=== PATIENT | female | born 1945 | race Caucasian/White ===

== ENCOUNTER 2017-07-15 10:05 | Inpatient (IN) | payer MEDICARE, OTHER, SELFPAY ==
[2017-06-11 13:24] VITALS: BP 160/68; PULSE 70; RESP 16; TEMP 36.8; O2SAT 95; BMI 36.9
--- NOTE | 2017-06-11 13:31 | SDCEKG_ITS ---
Test Reason : Blood Pressure : / mmHG Vent. Rate : 065 BPM Atrial Rate : 065 BPM P-R Int : 148 ms QRS Dur : 090 ms QT Int : 382 ms P-R-T Axes : 035 010 015 degrees QTc Int : 397 ms Normal sinus rhythm Cannot rule out Inferior infarct , age undetermined Abnormal ECG Confirmed by MAINOR CANTRELL, BRIDGER ([id number]), scientific editor LUCILA ABAD ([id number] on 06/13/2017 12:47:23 PM Referred By: ADAM Confirmed By:BRIDGER HAYWARD MD
[2017-06-11 14:20] LABS: Hematocrit 44.2 % (37-47); Hemoglobin 14.3 g/dl (12.0-15.0); Mean Corp Hgb Conc 32.4 g/gl (32-36); Mean Corpuscular Hgb 30.7 pg (27.0-32.0); Mean Corpuscular Volume 94.8 fL (81-99); Mean Platelet Vol. 10.5 fl (6.2-12.0); Platelet Count 211 K/mm3 (150-450); RBC Distribution Width CV 13.3 % (11.6-14.6); Red Blood Count 4.66 M/mm3 (4.2-5.4)
[2017-06-11 14:33] LABS: AST(SGOT) 22 U/L (15-37); Alanine Aminotransfer ALT/SGPT 18 U/L (12-78); Albumin, Serum 3.5 g/dL (3.4-5.0); Alkaline Phosphatase 100 U/L (45-117); Anion Gap 6 (5-15); BUN 10 mg/dL (7-18); BUN/Creat Ratio 14.5 RATIO (10-20); Calcium,Total 9.4 mg/dL (8.5-10.1); Chloride 106 mmol/L (98-107); Creatinine, Serum 0.69 mg/dL (0.55-1.02); EST Glomerular Filtration Rate 89 mL/min (>60); Est Glom Filt Rate - Afr Amer 108 mL/min (>60); Globulin 3.4 g/dL (2.2-4.2); Glucose 96 mg/dL (70-110); Potassium 3.9 mmol/L (3.5-5.1); Protein, Total 6.9 g/dL (6.4-8.2); Sodium Level 140 mmol/L (136-145)
[2017-06-11 14:35] LABS: Scan Indicated on CBC? Y/N NO
[2017-07-10 13:20] LABS: Hematocrit 44.9 % (37-47); Hemoglobin 14.4 g/dl (12.0-15.0); Mean Corp Hgb Conc 32.1 g/gl (32-36); Mean Corpuscular Hgb 30.6 pg (27.0-32.0); Mean Corpuscular Volume 95.3 fL (81-99); Mean Platelet Vol. 10.1 fl (6.2-12.0); Platelet Count 200 K/mm3 (150-450); RBC Distribution Width CV 13.1 % (11.6-14.6); RBC Distribution Width SD 45.8 fl (35.1-43.9); Red Blood Count 4.71 M/mm3 (4.2-5.4); White Blood Count 7.2 K/mm3 (4.4-11.0)
[2017-07-10 13:25] LABS: Scan Indicated on CBC? Y/N NO
[2017-07-10 14:02] LABS: Anion Gap 8 (5-15); BUN 14 mg/dL (7-18); BUN/Creat Ratio 20.5 RATIO (10-20); Calcium,Total 9.2 mg/dL (8.5-10.1); Chloride 104 mmol/L (98-107); Creatinine, Serum 0.68 mg/dL (0.55-1.02); EST Glomerular Filtration Rate 90 mL/min (>60); Est Glom Filt Rate - Afr Amer 109 mL/min (>60); Glucose 86 mg/dL (70-110); Potassium 3.5 mmol/L (3.5-5.1); Sodium Level 139 mmol/L (136-145)
[2017-07-15] VITALS (10 sets, daily range): BP systolic 115–161; BP diastolic 62–86; PULSE 61–77; RESP 16–18; TEMP 36.2–36.6; O2SAT 95–99; BMI 36.9
[2017-07-15] MEDS: Celecoxib 200 MG Capsule 400 MG PO (10:51)
[2017-07-15] MEDS: Acetaminophen 500 MG Tablet 1000 MG PO ×2 (10:51→21:10)
[2017-07-15] MEDS: oxyCODONE HCl Cr 10 MG Tablet 20 MG PO (10:51)
[2017-07-15 11:24] LABS: Prothrombin Time (Protime)PT. 13.2 SECONDS (11.7-14.9)
[2017-07-15] MEDS: Cefazolin 2 GM in 0.9% Normal Saline 100 ML IV (12:34)
--- NOTE | 2017-07-15 13:41 | OP.PCM_ITS ---
Report of Operation Date of Procedure: 07/15/17 Pre-Operative Diagnosis: Severe end-stage osteoarthritis right knee Post-Operative Diagnosis: Severe end-stage osteoarthritis right knee Surgery/Procedure Performed:: Total knee arthroplasty right Description of Surgical Findings:: Eburnation of bone, periarticular osteophytes consistent with tricompartmental osteoarthritis supervisor travel trailer: Lex Granado Type of Anesthesia:: Spinal Anesthesiologist: Roddy Jacobson Special Medications: TXA Specimen's removed: bone and soft tissue Estimated Blood Loss (mL): 100 Fluids Replaced: See anesthesia report Description of Procedure: Implants: Bethany triathlon size 4 posterior stabilized femur, 4 tibia, 35 x 10 mm patella all cemented with Simplex. 9 mm posterior stabilized articulating surface Indications: Patient has severe end-stage osteoarthritis diagnosed via x-rays in the knee. They have failed all forms of conservative measures including activity modification, injections, anti-inflammatories, use of assistive device. The patient has pain that affects on a daily basis and prevents him from doing things that they enjoyed. They have elected to undergo the above procedure. The risks of the procedure were discussed at length and their questions were answered. Procedure description: The patient was greeted in the preoperative area. The right knee was then marked with a surgical marker. Patient was then taken to or [address]. They were administered a dose of antibiotics as well as tranexamic acid. Once adequate anesthesia was obtained and airway was secured to placed in supine position on the operating room table. A well-padded tourniquet was placed on the affected extremity. Leg was then prepped and draped in the usual sterile fashion from the knee down. Ioban was used on the skin. Surgical timeout was then performed and confirmed with all present. Six-inch Esmarch was used to examine the limb and tourniquet was then inflated to 250 mmHg. A longitudinal incision was then planned and carried out in the anterior aspect of the knee. The dissection was then carried the length of the incision the extensor mechanism was identified. Standard medial parapatellar arthrotomy was then performed revealing severe eburnation of bone and periarticular osteophytes. There is complete loss of cartilage especially in the medial compartment with varus alignment. Anterior fat pad was removed for visualization purposes and the anterior medial aspect of the tibia was skeletonized for exposure to the knee. The knee was then flexed the patella was inverted. Opening reamer was then used in the femur approximately 1 cm anterior to the attachment of the PCL. The intramedullary valgus wand was then placed in the femur set at 5? of valgus. The distal femoral cutting jig was then applied to the femur with anticipated resection of approximately 8 mm. This was then made with a oscillating saw. The sizing guide was then placed referencing off the posterior condyles and also reference off the epicondylar axis. This was measured and the appropriate size 4-in-1 cutting jig was then applied to the distal femur. Anterior posterior cuts were made followed by the anterior and posterior chamfer cuts. These bony pieces and fragments were removed and placed on the back table. Posterior retractor was then utilized and the tibia was subluxed anteriorly. Extramedullary tibial alignment jig was then applied to the tibia referencing off the medial one third of the tibial tubercle the anterior tibial spine the middle aspect of the tibiotalar joint. Also reference off patient's tangirnaq slope. The tibial cutting jig was then pinned with anticipated resection of 2 mm off of the deficient medial tibial condyle. This cut was made with the oscillating saw. Once this was complete a laminar filing clerk was utilized in both medial lateral meniscus were removed and a posterior capsular osteophytes were also removed. Posterior capsule release was performed in the posterior capsule as well as the geniculate arteries are treated with the aqua Rosas. The tibia was incised and the appropriate sized tibial tray was then pinned. The femoral box cutting jig was then applied to the femur and the box was prepared removing a portion of the intercondylar notch. The femoral trial was then placed and the knee was trialed. Full flexion-extension were easily achieved. The knee seemed to balance quite nicely. Any remaining osteophytes were removed at this time. Once this was complete the patella was everted and the Kimmy patella reaming device was then utilized the patella was then placed in the appropriate jig and reamer was then used to remove approximately 9 mm of the undersurface of the patella. A soft tissue remaining was in the way was removed and patella trial was then placed listed maintain excellent tracking using the no thumbs technique. The tibial tray at this point was punched to accommodate the fins of the final implant. At this point cement was mixed on the back table. The trial components were removed and the knee was copiously irrigated. Did use a cocktail of injection for postoperative pain control. The final components were then cemented in the standard fashion and excess cement was removed with cement removal tools and patellar clamp is placed in the patella. As the cement had cured in full extension tourniquet was deflated and hemostasis was perfect with Bovie cautery as well as the aqua Manus. Needle is once again trialed with different size polyethylenes to ensure the full range of motion was achieved as well as excellent balancing ligamentously was achieved. The knee was then irrigated copiously. Final implant was then inserted locking mechanism was engaged and confirmed to be locked. The arthrotomy was then closed with #1 Vicryl aggravate type fashion interrupted. Subcutaneous tissue was closed with 0 Vicryl and surgical doreen were placed in the skin. A occlusive silver impregnated dressing was then applied followed by well-padded sterile dressing secured with an Lukas wrap. The patient was taken to the PACU in stable condition. No complications known at this time. Postoperatively we will maintain standard total knee postoperative protocol. The use of the physician special education assistant was integral during this procedure. They assisted with positioning placement of the tourniquet retracting closure and placement of the dressing. The procedure would have been much more difficult without their expertise and assistance - Complications none - Admit VTE Documentation VTE Present on Admission: Yes VTE Mechan Device Prophylaxis: SCD's, Thigh High DEAN Hose VTE Pharm Prophylaxis ordered?: Yes
[2017-07-15] MEDS: Lactated Ringers 1,000 ML 125 ML IV ×2 (15:00→22:27)
[2017-07-15] MEDS: Scopolamine 1mg/72hr Patch 1 PATCH TD (15:05)
--- NOTE | 2017-07-15 16:01 | CASEMGMT ---
Social Work Note Updated by RN DEEPIKA Purvis - that the pt is requesting RU. Placed call to referral line and left vm with pt's information requesting placement on RU. SW to continue to follow and assist with discharge planning. Plan: CELY Card, [employer]
[2017-07-15] MEDS: Aspirin 325 MG Tablet PO (18:23)
[2017-07-15] MEDS: oxyCODONE 5 MG Tablet PO (18:27)
[2017-07-15] MEDS: Cefazolin 1 GM/50 ML BAG IV (20:14)
[2017-07-15] MEDS: Senna/Docusate Sodium 1 Tablet 2 TABLET PO (21:10)
[2017-07-16] VITALS (7 sets, daily range): BP systolic 137–173; BP diastolic 64–89; PULSE 68–89; RESP 16–18; TEMP 26.6–36.9; O2SAT 94–97
[2017-07-16] MEDS: Cefazolin 1 GM/50 ML BAG IV (04:13)
[2017-07-16] MEDS: oxyCODONE 5 MG Tablet PO ×3 (04:13→17:51)
[2017-07-16] MEDS: Acetaminophen 500 MG Tablet 1000 MG PO ×3 (05:12→21:44)
[2017-07-16] MEDS: Aspirin 325 MG Tablet PO ×2 (07:32→17:52)
[2017-07-16] MEDS: DiphenhydrAMINE 25 MG Capsule PO (07:51)
[2017-07-16] MEDS: Losartan Potassium 50 MG Tablet PO (07:52)
[2017-07-16] MEDS: HYDROCHLOROTHIAZIDE 12.5 MG CAPSULE PO (07:53)
[2017-07-16] MEDS: Senna/Docusate Sodium 1 Tablet 2 TABLET PO ×2 (07:53→21:43)
--- NOTE | 2017-07-16 08:09 | PN.ORTHO_ITS ---
Subjective: Patient sitting up in bed eating breakfast. Patient states pain is well- managed. Patient denies chest pain, shortness breath, calf pain, or nausea vomiting. No other complaints. Patient does state that she is having itching in different parts of her body, patient feels a large contributing factor is the preoperative soap that she was required to use. Objective: Dressings are clean dry intact. Vital signs labs within normal limits. Patient is afebrile, neurovascular is otherwise intact. Negative signs and symptoms of DVT. Patient is in no respiratory distress. Patient has an approximate 11 cm skin tear to the lateral mid calf region of her operative right leg. This occurred postoperatively with dressing removal. The skin tear was approximated with a running 3-0 nylon stitch, and Steri's. A silver dressing was placed over the skin tear. - Physical Exam General: Alert, Oriented x3, Cooperative HEENT: PERRLA Oral: Moist Mucosa Neurological: Cranial nerves II-XII grossly intact Psych/Mental Status: Normal Affect, Alert and oriented to time, place, person, mood and affect Vital Signs Temp Pulse Resp BP Pulse Ox 97.5 F L 68 18 137/73 H 94 07/16/17 02:25 07/16/17 02:25 07/16/17 02:25 07/16/17 02:25 07/16/17 02:25 Oxygen Delivery Method Room Air Weight: 96.1 kg Body Mass Index (BMI) 36.9 Intake and Output for Last 24 Hours 07/14/17 07/15/17 07/16/17 23:59 23:59 23:59 Intake Total 3307 / 3307 722 / 722 Output Total 600 / 600 400 / 400 Balance 2707 / 2707 322 / 322 Laboratory Tests Past 24 Hrs 07/15/17 11:05 PT 13.2 INR 1.0 APTT 31.0 Assessment/Plan Status post right total knee arthroplasty Postop 11 cm skin tear to the right lateral lower leg Postop urticaria Plan 1. Continue all pain medications as prescribed 2. Begin physical therapy today weight-bear as tolerated with walker 3. Aspirin 325 mg 1 p.o. every 12 hours ?30 days for postop DVT prophylaxis 4. Encourage incentive spirometry 5. Possible discharge home tomorrow 6. Consult wound care nurse for evaluation of skin tear. 7. Provide patient with moisturizing body lotion, and 1 dose of Benadryl 25 mg p.o.
--- NOTE | 2017-07-16 10:14 | NURSING ---
wound photo: right lower leg
--- NOTE | 2017-07-16 10:44 | CASEMGMT ---
Social Work Note Call from [facility] confirming that [facility] can accept the pt once medically stable. Anticipate discharge on Saturday, 07/16. Pt updated with confirmation for discharge plan. Plan: [facility] for continued therapy. MATT PalmW
[2017-07-16] MEDS: Ketorolac 15 MG/ML Vial IV (15:13)
[2017-07-16] MEDS: 0.9% NaCl Peripheral Flush Adult/Peds IV (15:13)
[2017-07-17 02:27] VITALS: BP 160/58; PULSE 96; RESP 16; TEMP 36.8; O2SAT 96
[2017-07-17] MEDS: Acetaminophen 500 MG Tablet 1000 MG PO ×2 (05:50→14:05)
[2017-07-17] MEDS: oxyCODONE 5 MG Tablet PO ×2 (05:50→11:59)
[2017-07-17 08:30] VITALS: BP 150/71; PULSE 93; RESP 16; TEMP 36.8; O2SAT 94
[2017-07-17] MEDS: Aspirin 325 MG Tablet PO (08:36)
[2017-07-17] MEDS: HYDROCHLOROTHIAZIDE 12.5 MG CAPSULE PO (08:37)
[2017-07-17] MEDS: Losartan Potassium 50 MG Tablet PO (08:37)
[2017-07-17] MEDS: Senna/Docusate Sodium 1 Tablet 2 TABLET PO (08:39)
--- NOTE | 2017-07-17 13:33 | PCM.PN.ORT ---
Subjective: Patient sitting at lunch, doing very well, pain well-managed. Patient has no other complaints, ready for discharged with screening hospital for for rehab. Objective: Dressings are clean dry intact. Labs vitals within normal limits. Patient is afebrile, neurovascular intact. Negative signs and symptoms of DVT. - Physical Exam General: Alert, Oriented x3, Cooperative Vital Signs Temp Pulse Resp BP Pulse Ox 98.3 F 93 16 150/71 H 94 07/17/17 08:30 07/17/17 08:30 07/17/17 08:30 07/17/17 08:30 07/17/17 08:30 Oxygen Delivery Method Room Air Weight: 96.1 kg Body Mass Index (BMI) 36.9 Intake and Output for Last 24 Hours 07/15/17 07/16/17 07/17/17 23:59 23:59 23:59 Intake Total 3307 / 3307 1222 / 1222 1050 / 1050 Output Total 600 / 600 400 / 400 300 / 300 Balance 2707 / 2707 822 / 822 750 / 750 Assessment/Plan Status post right total knee arthroplasty Postop 11 cm skin tear to the right lateral lower leg Postop urticaria Plan 1. Discontinue all pain medications. Will restart pain medications with Ultram 1 or 2 every 6 hours as needed pain 2. Begin physical therapy today weight-bear as tolerated with walker 3. Aspirin 325 mg 1 p.o. every 12 hours ?30 days for postop DVT prophylaxis 4. Encourage incentive spirometry 5. Discharge to [facility] fourth floor rehab today 6. Wound care nurse will continue to monitor patient's skin tear on the lower leg. 7. Provide patient with moisturizing body lotion, and 1 dose of Benadryl 25 mg p.o. 8. Follow with Dr. Pickett as scheduled
--- NOTE | 2017-07-17 13:46 | PCM.DC.TKR ---
Discharge Diet: No Restrictions Discharge Activity: May Not Drive, May Shower, Use Walker May shower in (days): 2 Ice area for (Minutes): 20 - each hour while awake. Weight Bearing Status: Weight bearing as tolerated Elevate: Operative Extremity Additional Activity Instructions:: Wear elastic stockings for 2 weeks after your surgery. Call your doctor if your incision/area has: Continuous Slow Oozing, Sudden Increased Bleeding, Increased Pain/ Swelling, Increased Redness, Foul Smelling Discharge Call your doctor if you observe: Fever of 101 or Higher, Coldness, Increased Pain - in extremity, Numbness or Tingling, Change in Color, Calf discomfort, Uncontrolled pain Change Dressing in (Days):: 0 - and daily as needed. Remove Dressing in (days):: 9 Cleanse incision/area with: Soap & Water Allergies/Adverse Reactions: Allergies adhesive Adverse Reaction (Verified 06/11/17 13:09) Other levofloxacin [From Levaquin] Adverse Reaction (Verified 06/11/17 13:09) Other JITTERY, UNABLE TO SLEEP FOR 2 DAYS lisinopril Adverse Reaction (Verified 06/11/17 13:09) Other COUGHING Medications to take at Discharge Losartan/Hydrochlorothiazide [Losartan-Hctz 50-12.5 mg Tab] 1 each PO DAILY 07/17/16 Acetaminophen [Tylenol] 1,000 mg PO Q8 #90 tab 07/17/17 Aspirin 325 mg PO BIDCM #60 tab 07/17/17 Scopolamine Patch 1mg/72hr [Transderm-Scop] 1 patch TD Q3D #4 patch 07/17/17 TraMADol [Ultram (G)] 50 mg PO Q6H PRN PRN 7 Days #60 tab 07/17/17 The following prescriptions were given: TraMADol [Ultram (G)] 50 mg PO Q6H PRN PRN 7 Days #60 tab PRN Reason: Pain Acetaminophen [Tylenol] 1,000 mg PO Q8 #90 tab Scopolamine Patch 1mg/72hr [Transderm-Scop] 1 patch TD Q3D #4 patch Aspirin 325 mg PO BIDCM #60 tab Primary Care Physician: Shoaib Begum DO [Primary Care Provider] - Please Follow Up With: Zaki Pickett DO When: see pink sheet
[2017-07-17 14:00] VITALS: BP 136/67; PULSE 75; RESP 18; TEMP 36.7; O2SAT 95
--- NOTE | 2017-07-17 14:10 | NURSING ---
Talked with MILEY Chavez about the skin tear to the right lower leg. plan to assist Davin in the removal of the sutures a week from today. Pt will be going to the rehab unit. will continue to follow.
[2017-07-17] MEDS: DiphenhydrAMINE 25 MG Capsule PO (15:23)
--- NOTE | 2017-07-17 16:04 | NURSING ---
report called to Se[facility] in Rehab Unit at 1520. pt medicated with benadryl prior to D/C due to itching. pt transported to rehab room 410 by BRUCE Kuo.
== END 2017-07-17 15:39 | DRG 470 ==
LOC: MS3 15:05 → ACINP 15:05
PROVIDERS: Anesthesiology; Admitting Provider Orthopaedic Surgery; Family Provider Family Medicine; PCP Family Medicine; Visit Provider Orthopaedic Surgery
PROC: 0SRC0J9 Replacement of Right Knee Joint with Synthetic Substitute, Cemented, Open Approach (ICD-10-PCS; CPT 27447; principal; 2017-07-15 11:50)
DX: M17.11 Unilateral primary osteoarthritis, right knee (principal); S81.811A Laceration without foreign body, right lower leg, initial encounter; M25.761 Osteophyte, right knee; X58.XXXA Exposure to other specified factors, initial encounter; Y92.239 Unspecified place in hospital as the place of occurrence of the external cause; L50.9 Urticaria, unspecified; I10 Essential (primary) hypertension
CPT/HCPCS: 36415; 80048; 80076; 85027; 85610; 85730; 87081; 93005; 97110; 97116; 97162; 97165; 97530; 97535; J7120; A4216; J2405

== ENCOUNTER 2017-07-17 15:56 | Inpatient (IN) | payer MEDICARE, OTHER, SELFPAY ==
[2017-07-17 16:30] VITALS: BP 149/71; PULSE 80; RESP 16; TEMP 36.5; O2SAT 97; BMI 37.4
[2017-07-17] MEDS: Aspirin 325 MG Tablet PO (18:12)
--- NOTE | 2017-07-17 18:17 | NURSING ---
patient aware of being a fall risk and must ask for staff assist for all needs and transfers.
[2017-07-17 19:52] VITALS: BP 163/81; PULSE 100; RESP 12; TEMP 36.7; O2SAT 93
[2017-07-17] MEDS: Acetaminophen 500 MG Tablet 1000 MG PO (20:57)
[2017-07-17] MEDS: Senna/Docusate Sodium 1 Tablet 2 TABLET PO (20:58)
[2017-07-18] MEDS: Acetaminophen 500 MG Tablet 1000 MG PO ×3 (05:35→21:15)
[2017-07-18 06:15] LABS: Hematocrit 40.5 % (37-47); Mean Corp Hgb Conc 32.1 g/gl (32-36); Mean Corpuscular Hgb 31.3 pg (27.0-32.0); Mean Corpuscular Volume 97.4 fL (81-99); Mean Platelet Vol. 10.4 fl (6.2-12.0); Platelet Count 208 K/mm3 (150-450); RBC Distribution Width CV 13.3 % (11.6-14.6); RBC Distribution Width SD 45.8 fl (35.1-43.9); Red Blood Count 4.16 M/mm3 (4.2-5.4); White Blood Count 11.7 K/mm3 (4.4-11.0)
[2017-07-18 06:17] LABS: Scan Indicated on CBC? Y/N NO
[2017-07-18 06:21] LABS: Anion Gap 7 (5-15); BUN 8 mg/dL (7-18); BUN/Creat Ratio 14.6 RATIO (10-20); Chloride 102 mmol/L (98-107); Creatinine, Serum 0.55 mg/dL (0.55-1.02); EST Glomerular Filtration Rate 116 mL/min (>60); Est Glom Filt Rate - Afr Amer 141 mL/min (>60); Glucose 120 mg/dL (70-110); Magnesium 1.9 mg/dL (1.6-2.6); Phosphorus 2.7 mg/dL (2.5-4.9); Potassium 3.5 mmol/L (3.5-5.1); Sodium Level 138 mmol/L (136-145)
--- NOTE | 2017-07-18 08:34 | CON.PCM_ITS ---
Problem List (1) Obesity (BMI 30-39.9) Status: Acute (2) Benign essential hypertension Status: Chronic (3) Osteoarthritis Status: Chronic Qualifiers: Osteoarthritis location: unspecified site Osteoarthritis type: unspecified Qualified Code(s): M19.90 - Unspecified osteoarthritis, unspecified site (4) Hypothyroidism Status: Chronic Qualifiers: Hypothyroidism type: unspecified Qualified Code(s): E03.9 - Hypothyroidism , unspecified (5) Sinus arrhythmia Status: Chronic Reason for Consult Date of Consultation: 07/18/17 Reason for Consultation: Medical consultation History of Present Illness: The patient is a 72 y/o F w/ PMHx: HTN, Obesity, OA, Hypothyroidism, Sinus arrhythmia following with Dr. Wheat who presents to the [facility] on 07/18/17 for continued PT, OT following recent revision L shoulder replacement per Dr. Vides. She had no kingsley-operative events. She was evaluated per Dr. Wheat and her PCP Dr. Begum prior to her operative intervention. The patient had originally had a fractured left shoulder in 1965 and underwent eventually a hemiarthroplasty in 1994. Following her intervention she had less aggressive therapy and as a result had limited range of motion and had progressively worsening discomfort prompting this most recent intervention. Past Medical History Past Medical History (Chronic Problems): Chronic Problems Benign essential hypertension (Chronic) Osteoarthritis (Chronic) Hypothyroidism (Chronic) Sinus arrhythmia (Chronic) Allergies adhesive Adverse Reaction (Verified 06/11/17 13:09) Other levofloxacin [From Levaquin] Adverse Reaction (Verified 06/11/17 13:09) Other JITTERY, UNABLE TO SLEEP FOR 2 DAYS lisinopril Adverse Reaction (Verified 06/11/17 13:09) Other COUGHING Home Medications: Ambulatory Orders Medication Instructions Recorded Losartan/Hydrochlorothiazide 1 each PO DAILY 07/17/16 [Losartan-Hctz 50-12.5 mg Tab] Acetaminophen [Tylenol] 1,000 mg PO Q8 07/17/17 Aspirin 325 mg PO BIDCM 07/17/17 Scopolamine Patch 1mg/72hr 1 patch TD Q3D 07/17/17 [Transderm-Scop] TraMADol [Ultram (G)] 50 mg PO Q6H PRN PRN 7 Days #60 tab 07/17/17 Surgical History: - - Revision left shoulder replacement, appendectomy, cholecystectomy, hysterectomy, prior left shoulder hemiarthroplasty, right hip replacement, loop recorder, tonsillectomy. Psychiatric History: No pertinent psych hx FABRIC AND ACCESSORIES ESTIMATOR History: No pertinent FABRIC AND ACCESSORIES ESTIMATOR history Lives: Spouse/ Significant Other Smoking Status: Never smoker Tobacco Use: Non-smoker Alcohol: Occasional Drugs: None - *Family History Maternal History Items: Diabetes, Hypertension Paternal History Items: Hypertension Review of Systems Constitutional: Denies: Chills, Fever, Weight Change HEENT: Denies: Head Aches, Sinus Congestion, Sinus Drainage Cardiovascular: Denies: Chest Pain, Palpitations Respiratory: Denies: Cough, Shortness of breath at rest, Sputum production Gastrointestinal: Reports: Abdominal Pain, Constipation. Denies: Nausea, Vomiting Genitourinary: Denies: Dysuria Musculoskeletal: Reports: Joint stiffness, Joint swelling, Joint Tenderness, Shoulder Pain. Denies: Joint Pain Skin: Denies: Rash, Wounds Neurological: Denies: Numbness, Tingling, Focal weakness Psychiatric: Denies: Anxiety, Depression, Homicidal Ideations, Suicidal Ideations Hematologic/ Lymphatic: Denies: Easy Bruising, Easy Bleeding Patient Problems: Active and Suspected Problems Obesity (BMI 30-39.9) (Acute) Subjective: Seated upright in the bedside chair, NAD. Objective: Physical Examination: General: awake, alert, oriented x 3 and cooperative, seated upright in bedside chair, in no apparent distress. Skin: normal color, turgor, no icterus, cyanosis. HEENT: AT/NC, EOMI, PERRLA, MMM, no carotid bruits or JVD noted. Lungs: CTA bilaterally, moderate effort, moderate decrease BL bases, no rales, ronchi or wheezing. Heart: Regular rate and rhythm; no gallop, rub audible. Abdomen: soft, obese, NTTP, ND, mildly hyperactive BS, no HSM; however, habitus makes examination difficult. Extremities: no cyanosis, clubbing, or edema. Neurological: patient awake, alert, oriented x 3; cognitive function intact; pupils equally reactive to light and accomodation; cranial nerves II-XII grossly normal, moving all 4 extremities except limited LUE given recent intervention, strength accordingly moderately globally decreased. Psychiatric: affect appears normal, no acute evidence of depressive or anxiety feelings. - Physical Exam Vital Signs Temp Pulse Resp BP Pulse Ox 98.1 F 100 12 163/81 H 93 07/17/17 19:52 01/31/18 19:52 07/17/17 19:52 07/17/17 19:52 07/17/17 19:52 Oxygen Delivery Method Room Air Weight: 218 lb Body Mass Index (BMI) 37.4 Intake and Output for Last 24 Hours 07/16/17 07/17/17 07/18/17 23:59 23:59 23:59 Intake Total 240 / 240 Output Total 450 / 450 200 / 200 Balance -210 / -210 -200 / -200 Laboratory Tests Past 24 Hrs 07/18/17 07/18/17 05:15 05:15 WBC 11.7 H RBC 4.16 L Hgb 13.0 Hct 40.5 MCV 97.4 MCH 31.3 MCHC 32.1 RDW 13.3 RDW Differential 45.8 H Plt Count 208 MPV 10.4 Sodium 138 Potassium 3.5 Chloride 102 Carbon Dioxide 29.0 Anion Gap 7 BUN 8 Creatinine 0.55 Estim Creat Clear Calc 45.20 Est GFR (MDRD) Af Amer 141 Est GFR (MDRD) Non-Af 116 BUN/Creatinine Ratio 14.6 Glucose 120 H Calcium 9.0 Phosphorus 2.7 Magnesium 1.9 Assessment/Plan Active and Suspected Problems Obesity (BMI 30-39.9) (Acute) The patient is a 72 y/o F w/ PMHx: HTN, Obesity, OA, Hypothyroidism, Sinus arrhythmia following with Dr. Wheat who presents to the [facility] on 07/18/17 for continued PT, OT following recent revision L shoulder replacement per Dr. Vides. She had no kingsley-operative events. She was evaluated per Dr. Wheat and her PCP Dr. Begum prior to her operative intervention. (1) Severe OA, L Shoulder w/ prior Hemiarthroplasty: 07/17/17 Revision L shoulder replacement per Dr. Vides, maintain on pain regimen, bowel regimen broadened given no recent BM and abdominal discomfort, DVT Prophylaxis per Dr. Vides direction upon recent transition to Acute Rehabilitation. Continued PT, OT, usage parameters to the LUE per Orthopedic surgery direction. Patient w/ noted skin tear RUE secondary to surgical tape, adhesive allergy listed, wound RN consulted per Rehab. (2) Hypertension: Continue home regimen including losartan, hydrochlorothiazide , PRN hydralazine. (3) Hx Graves Disease: Not on regimen currently, will obtain TSH, FT4, T3 level. (4) Sinus arrhythmia: Falling outpatient with Dr. Chew with evaluation prior to intervention recently. (5) Obesity: Weight loss and lifestyle changes encouraged. (6) DVT Prophylaxis: SCDs, ASA 325 mg BID per Orthopedic surgery discharge direction. Code Visit Office Visits / Consults: [id number] IP Consult L3
[2017-07-18] MEDS: Ondansetron ODT 4 MG Tablet PO ×2 (08:51→21:15)
--- NOTE | 2017-07-18 09:02 | PCM.HP.COS ---
History of Present Illness Date of Admission: 07/17/17 Chief Complaint: Right Total Knee Replacement The patient is a 72 year old Female, admitted to the rehabilitation unit for rehab S/P Right Total Knee Replacement. She has a past medical history of HTN, Graves disease and Osteoarthritis. This was an elective surgery, the patient had attempted several other therapies with no success. She lives in a one story ranch with her , she has 3 steps to get into her home. She was doing all her own ADLs and was independent in her care. She was previously completely functionally independent and is admitted to the rehab unit in order to restore her previous level of functional independence. Past Medical History Past Medical History (Chronic Problems): Chronic Problems Benign essential hypertension (Chronic) Osteoarthritis (Chronic) Allergies adhesive Adverse Reaction (Verified 06/11/17 13:09) Other levofloxacin [From Levaquin] Adverse Reaction (Verified 06/11/17 13:09) Other JITTERY, UNABLE TO SLEEP FOR 2 DAYS lisinopril Adverse Reaction (Verified 06/11/17 13:09) Other COUGHING Home Medications: Ambulatory Orders Medication Instructions Recorded Losartan/Hydrochlorothiazide 1 each PO DAILY 07/17/16 [Losartan-Hctz 50-12.5 mg Tab] Acetaminophen [Tylenol] 1,000 mg PO Q8 07/17/17 Aspirin 325 mg PO BIDCM 07/17/17 Scopolamine Patch 1mg/72hr 1 patch TD Q3D 07/17/17 [Transderm-Scop] TraMADol [Ultram (G)] 50 mg PO Q6H PRN PRN 7 Days #60 tab 07/17/17 Surgical History: no surgical history Psychiatric History: No pertinent psych hx DIRECTOR OF INSTRUCTION History: No pertinent DIRECTOR OF INSTRUCTION history Lives: Spouse/ Significant Other Smoking Status: Never smoker Tobacco Use: Non-smoker Alcohol: Occasional Drugs: None - *Family History Maternal History Items: No pertinent history Review of Systems Constitutional: Denies: Chills, Fever, Weight Change HEENT: Denies: Head Aches, Sinus Congestion, Sinus Drainage Cardiovascular: Denies: Chest Pain, Palpitations Respiratory: Denies: Cough, Shortness of breath at rest, Sputum production Gastrointestinal: Denies: Abdominal Pain, Nausea, Vomiting Genitourinary: Denies: Dysuria Musculoskeletal: Denies: Joint Pain, Joint Tenderness Skin: Denies: Rash, Wounds Neurological: Denies: Numbness, Tingling, Focal weakness Psychiatric: Denies: Anxiety, Depression, Homicidal Ideations, Suicidal Ideations Hematologic/ Lymphatic: Denies: Easy Bruising, Easy Bleeding VTE Information - Inpt Only VTE Present on Admission: No VTE Mechan Device Prophylaxis: SCD's, Knee High TRAVIS Hose VTE Pharm Prophylaxis ordered?: Yes - Physical Exam General: Alert, Oriented x3, Cooperative HEENT: Atraumatic, PERRLA, EOMI, Normocephalic Neck: Supple, No JVD, Negative Carotid Bruits Lungs: Clear to auscultation, Normal air movement Cardiovascular: Regular rate, No murmurs Abdomen: Bowel Sounds Present, Soft, Non Tender Extremities: No edema, Capillary Refill Less than 3 Seconds Skin: No rashes, No breakdown Musculoskeletal: No Tenderness to Palpation of Joints or Extremities Neurological: Cranial nerves II-XII grossly intact Psych/Mental Status: Normal Affect, Appropriate Vital Signs Temp Pulse Resp BP Pulse Ox 98.1 F 100 12 163/81 H 93 07/17/17 19:52 07/17/17 19:52 07/17/17 19:52 07/17/17 19:52 07/17/17 19:52 Oxygen Delivery Method Room Air Weight: 98.883 kg Body Mass Index (BMI) 37.4 Intake and Output for Last 24 Hours 07/16/17 07/17/17 07/18/17 23:59 23:59 23:59 Intake Total 240 / 240 Output Total 450 / 450 200 / 200 Balance -210 / -210 -200 / -200 Laboratory Tests Past 24 Hrs 07/18/17 07/18/17 05:15 05:15 WBC 11.7 H RBC 4.16 L Hgb 13.0 Hct 40.5 MCV 97.4 MCH 31.3 MCHC 32.1 RDW 13.3 RDW Differential 45.8 H Plt Count 208 MPV 10.4 Sodium 138 Potassium 3.5 Chloride 102 Carbon Dioxide 29.0 Anion Gap 7 BUN 8 Creatinine 0.55 Estim Creat Clear Calc 45.20 Est GFR (MDRD) Af Amer 141 Est GFR (MDRD) Non-Af 116 BUN/Creatinine Ratio 14.6 Glucose 120 H Calcium 9.0 Phosphorus 2.7 Magnesium 1.9 Active Medications Acetaminophen (Tylenol) 1,000 mg PO Q8 [facility] Last Admin: 07/18/17 05:35 Dose: 1,000 mg [facility]) [facility] Stop: 08/16/17 08:01 Last Admin: 07/17/17 18:12 Dose: 325 mg Bisacodyl (Dulcolax) 10 mg RECTAL .PRN X 1 PRN PRN Reason: Constipation Diphenhydramine HCl (Benadryl) 25 mg PO DAILY PRN PRN PRN Reason: ITCHING Hydrochlorothiazide (Hydrochlorothiazide) 12.5 mg PO DAILY [facility] Losartan Potassium (Cozaar) 50 mg PO DAILY [facility] Magnesium Hydroxide (Milk Of Magnesia) 30 ml PO .PRN X 1 PRN PRN Reason: Constipation Ondansetron HCl (Zofran Odt) 4 mg PO Q8H PRN PRN PRN Reason: NAUSEA/VOMITING Last Admin: 07/18/17 08:51 Dose: 4 mg Scopolamine HBr (Transderm-Scop) 1 patch TD Q3D [facility] Stop: 07/27/17 10:01 Senna/Docusate Sodium (Senokot-S, Nancy-Colace) 2 tablet PO BID [facility] Last Admin: 07/17/17 20:58 Dose: 2 tablet Tramadol HCl (Ultram (G)) 50 - 100 mg PO Q6H PRN PRN PRN Reason: PAIN Last Admin: 07/18/17 04:04 Dose: 100 mg Assessment/Plan Debility status post Right Total Knee Replacement. Goal of rehab is sabianist of prior level of functional independence. Plan: - Physical therapy for gait and balance - Occupational Therapy for ADLs - As needed analgesics - Bowel protocol - DVT prophylaxis: ASA 325mg per the Orthopedic team, SCD's and Travis richardson on the left leg - Hx of HTN -> continue home medications HCTZ and Cozaar - Incision Site -> Dressing has several old dried blood spots, nothing new or fresh it is dry and intact. - Skin tear right wilks from surgical drape -> wound care nurse consulted - Hx of Graves disease, no current treatment - Hx of Osteoarthritis - Follow up appointment with Dr. Pickett in two weeks
[2017-07-18 10:00] VITALS: BP 168/87; PULSE 97; RESP 17; TEMP 36.8; O2SAT 93
[2017-07-18] MEDS: Senna/Docusate Sodium 1 Tablet 2 TABLET PO ×2 (10:26→21:17)
[2017-07-18] MEDS: Losartan Potassium 50 MG Tablet PO (10:26)
[2017-07-18] MEDS: Aspirin 325 MG Tablet PO ×2 (10:26→16:43)
[2017-07-18] MEDS: HYDROCHLOROTHIAZIDE 12.5 MG CAPSULE PO (10:26)
[2017-07-18] MEDS: Scopolamine 1mg/72hr Patch 1 PATCH TD (10:27)
--- NOTE | 2017-07-18 11:15 | CASEMGMT ---
Social Work Offered to contact patient family member to introduce self as well as social work role, patient declining at this time. Patient aware of team meeting and planning to communicate team meeting time and date to patient family. Support given. Alexandra ALONSO, THREAD TWISTER
--- NOTE | 2017-07-18 13:57 | REHABEVAL_ITS ---
Admission Information Status Changes from Prescreening?: No changes Identified Actual Problem List:: Mobility Impaired, Self Care Deficit, BP, Hypertension Potential Problem List:: DVT, Bleeding, Infection, UTI, Aspiration, Falls, Skin Integrity, Depression Risk of Complications DVT: LMWH, DEAN Hose, Sequential Compression Device Bleeding: Monitor Lab Values, Nursing to Teach Precautions for anti-coagulation therapy., Wound, if applicable, to be assessed every shift., Stroke patients assessed for lethargy or change in status. Infection: Clinical Staff to Monitor for S/S of infection:, S/S of infection include fever, redness, warmth, etc. Urinary Tract Infection: Monitor for frequency, burning, discomfort, or incontinence., Nursing will obtain urine sample for urinalysis and C&S when ordered. Aspiration: Clinical staff will monitor for coughing, drooling, congestion., Speech will evaluate swallowing and dsyphasia., Nursing will monitor patient swallowing during meals. Falls: Patient will be evaluated for Fall Precautions, Patient will be placed on Fall Precautions as indicated per protocol. Skin Breakdown: Nursing will assess skin daily using assessment tool., Nursing will place on Skin Breakdown Precautions as indicated. Pain: Clinical staff will assess patient's pain level per protocol., Medications will be given, if needed, and the pain level reassessed., Other methods: Massage, distraction, decrease stimulus, etc. used PRN. Plan of Care Patient requires physician specializing in physical medicine and rehab oversight to provide close medical supervision of rehab issues including: Pain Management, Sleep Problems, Bowel and Bladder, Medical and co-morbidity Management, DVT prophylaxis, Rehabilitation Leadership, Coordination of treatment team Patient needs Physical Therapy: For a minimum of 1 hour, At least 5 out of 7 days Patient needs Physical Therapy to improve:: Mobility, Mobility, Mobility, Strengthening, Transfers, Stretching, ROM, Endurance, Stairs, Gait, Balance Patient needs Occupational Therapy: For a minimum of 1 hour, At least 5 out of 7 days Patient needs Occupational Therapy to improve ADL's incl.: Eating, Grooming, Bathing, Dressing, Toileting, Toilet transfers, Community Reintegration, Higher functioning activities, Household tasks, Adaptive Equipment, Splinting, Other activities as determined Patient requires 24/7 Rehabilitation Nursing for: Pain Issues, Identifying and preventing risk factors, Monitoring and reporting current medical conditions, Assisting with ambulation, transfer, and all ADL's, Teaching patients about disease process and medications, Family teaching, Providing safe environment, Bowel and Bladder Issues, Skin integrity, Medication Management Patient needs Stripping Cutter And Winder/ Case Management for: Discharge Planning, Arranging Home Equipment or Services, Family Interventions Patient needs Dietary and Nutrition Services for: Adequate Nutrition, Nutritional Supplements, Nutritional Education Goals Patient will remain: free from falls, or injury at time of discharge. Patient will perform bed mobility at: MOD I level of assist. Patient will complete transfers from bed to chair at: MOD I level of assist. Patient will ambulate: 100 feet, with MOD I assist, with LRD Patient will complete upper body dressing at: MOD I level of assist. Patient will complete lower body dressing at: MOD I level of assist. Patient will complete toileting at: MOD I level of assist. Patient will perform bathing at: MOD I level of assist. Patient will complete grooming at: MOD I level of assist. Patient will complete home management skills at: MOD I level of assist. Patient will achieve: 12 stairs, at MOD I assist Patient will have pain level of: of 3 or less Patient's skin will: remain intact, free from infection. Patient will receive: adequate nutrition. Discharge Planning Pt Prognosis for Sig. Practical Improv. w/in Reasonable Time: Good Estimated Length of stay (days): 10 Anticipated D/C Destination: Home Was Preadmission Assessment Accurate?: Yes
[2017-07-18 14:48] LABS: T4 Free Direct 1.55 ng/dL (0.76-1.46); Thyroid Stim Hormone (TSH) 0.67 uIU/mL (0.358-3.74)
[2017-07-18 14:59] LABS: Free T3 2.6 pg/mL (2.18-3.98)
[2017-07-18] MEDS: Magnesium Hydroxide 30 ML UDC PO (14:59)
[2017-07-18 19:13] VITALS: O2SAT 93
[2017-07-18 22:38] VITALS: BP 154/85; PULSE 98; RESP 16; TEMP 36.8; O2SAT 91
--- NOTE | 2017-07-19 08:44 | RAD_ITS ---
STUDY: X-RAY - ABDOMEN/PELVIS REASON FOR EXAM: Female, 72 years old. Nausea and vomiting since recent knee surgery. TECHNIQUE: Two AP supine views of the abdomen and pelvis. COMPARISON: None. FINDINGS: There is elevation of the right hemidiaphragm. Slightly dilated small bowel loops in the left upper quadrant and left mid abdomen. Gas and fecal material are seen in the colon. Mild gaseous distention of the stomach. The patient is status post cholecystectomy. Normal soft tissue structures. Status post right total hip replacement. RAD/Abdomen Single View IMPRESSION: Slightly distended gas-filled small bowel loops in the left upper quadrant and left midabdomen. Gas and fecal material are seen in the colon. Mild gaseous distention of the stomach. Follow-up is recommended. Electronically Signed: Jamal Gonzalez MD at 10:15 EST Tel [phone], Service support ,
[2017-07-19 09:22] VITALS: BP 149/75; PULSE 91; RESP 18; TEMP 36.7; O2SAT 93
[2017-07-19] MEDS: Ondansetron ODT 4 MG Tablet PO ×2 (09:32→22:07)
[2017-07-19] MEDS: Acetaminophen 500 MG Tablet 1000 MG PO ×3 (11:21→21:50)
[2017-07-19] MEDS: Losartan Potassium 50 MG Tablet PO (11:22)
[2017-07-19] MEDS: Pantoprazole Sodium 20 MG Tablet PO (11:22)
[2017-07-19] MEDS: Aspirin 325 MG Tablet PO ×2 (11:22→16:48)
[2017-07-19] MEDS: HYDROCHLOROTHIAZIDE 12.5 MG CAPSULE PO (11:22)
[2017-07-19] MEDS: Polyethylene Glycol 3350 17 GM PACKET PO (11:23)
[2017-07-19] MEDS: Senna/Docusate Sodium 1 Tablet 2 TABLET PO (11:23)
[2017-07-19 13:15] VITALS: O2SAT 92
[2017-07-19] MEDS: Bisacodyl 10 MG Suppository RECTAL (15:21)
[2017-07-19 21:48] VITALS: BP 164/78; PULSE 86; RESP 16; TEMP 36.6; O2SAT 93
--- NOTE | 2017-07-20 00:13 | NURSING ---
Nauseated earlier. Zofran given. Pt now with lg green emesis. States nausea before was 02/24 and now it is 06/26. Will continue to monitor. BP 165/92 HR 89 Resp 20 Temp 97.8 orally Sats 92%
[2017-07-20] MEDS: Acetaminophen 500 MG Tablet 1000 MG PO ×2 (05:13→13:02)
--- NOTE | 2017-07-20 05:16 | NURSING ---
C/O nausea. Too soon to give zofran. No further emesis since last night
[2017-07-20 06:59] VITALS: O2SAT 90
[2017-07-20 08:41] VITALS: BP 160/76; PULSE 78; RESP 16; TEMP 36.9; O2SAT 96
[2017-07-20] MEDS: Ondansetron ODT 4 MG Tablet PO (08:42)
[2017-07-20] MEDS: Senna/Docusate Sodium 1 Tablet 2 TABLET PO (09:04)
[2017-07-20] MEDS: Polyethylene Glycol 3350 17 GM PACKET PO (09:04)
--- NOTE | 2017-07-20 10:36 | PCM.PN.HOSP ---
Patient Problems: Active and Suspected Problems Obesity (BMI 30-39.9) (Acute) Subjective: Patient since last evaluation with ongoing constipation although did have 1-2 small stools noted per staff but more firm with KUB secondary to abdominal distention and discomfort with slightly distended gas filled small bowel loops in the left upper quadrant and left mid abdomen with gas and fecal material seen in the colon with mild gaseous distention of the stomach. Discussed options with patient and decision for as needed antiemetics, encouraged activity to assist with bowel function, avoidance of narcotics as able, addition of more aggressive bowel regimen including Fleet's enema pending. Patient denies fevers, chills, chest pain or dyspnea. Objective: Physical Examination: General: awake, alert, oriented x 3 and cooperative, seated upright in bed, fatigued appearance. Skin: normal color, turgor, no icterus, cyanosis, incision C/D/I. HEENT: AT/NC, EOMI, PERRLA, mildly dry MM. Lungs: CTA bilaterally, moderate effort, moderate decrease BL bases, no rales, ronchi or wheezing. Heart: Regular rate and rhythm; no gallop, rub audible. Abdomen: soft, obese, mild diffuse generalized TTP, moderately distended, hypoactive BS. Extremities: no cyanosis, clubbing, or edema. Neurological: patient awake, alert, oriented x 3; cognitive function intact; pupils equally reactive to light and accomodation; cranial nerves II-XII grossly normal, moving all 4 extremities except limited LUE given recent intervention, strength accordingly moderately to severely globally decreased. Psychiatric: affect appears fatigued, no acute evidence of depressive or anxiety feelings. Vitals/I&O's: Vital Signs Temp Pulse Resp BP Pulse Ox 98.4 F 78 16 160/76 H 96 07/20/17 08:41 07/20/17 08:41 07/20/17 08:41 07/20/17 08:41 07/20/17 08:41 Oxygen Delivery Method Room Air Weight: 217 lb 15.995 oz Body Mass Index (BMI) 37.4 Intake and Output for Last 24 Hours 07/18/17 07/19/17 07/20/17 23:59 23:59 23:59 Intake Total 320 / 320 240 / 240 Output Total 200 / 200 1450 / 1450 Balance 120 / 120 -1210 / -1210 Current Medications Acetaminophen (Tylenol) 1,000 mg PO Q8 [facility] Last Admin: 07/20/17 05:13 Dose: 1,000 mg [facility]) [facility] Stop: 08/16/17 08:01 Last Admin: 07/19/17 16:48 Dose: 325 mg Bisacodyl (Dulcolax) 10 mg RECTAL .PRN X 1 PRN PRN Reason: Constipation Last Admin: 07/19/17 15:21 Dose: 10 mg Diphenhydramine HCl (Benadryl) 25 mg PO DAILY PRN PRN PRN Reason: ITCHING Hydrochlorothiazide (Hydrochlorothiazide) 12.5 mg PO DAILY [facility] Last Admin: 07/19/17 11:22 Dose: 12.5 mg Losartan Potassium (Cozaar) 50 mg PO DAILY [facility] Last Admin: 07/19/17 11:22 Dose: 50 mg Magnesium Hydroxide (Milk Of Magnesia) 30 ml PO DAILY PRN PRN PRN Reason: Constipation Last Admin: 07/18/17 14:59 Dose: 30 ml Ondansetron HCl (Zofran Odt) 4 mg PO Q8H PRN PRN PRN Reason: NAUSEA/VOMITING Last Admin: 07/20/17 08:42 Dose: 4 mg Pantoprazole Sodium (Protonix) 20 mg PO DAILY [facility] Last Admin: 07/19/17 11:22 Dose: 20 mg Polyethylene Glycol (Miralax) 17 gm PO DAILY [facility] Last Admin: 07/20/17 09:04 Dose: 17 gm Promethazine HCl (Phenergan) 12.5 mg PO Q6H PRN PRN PRN Reason: NAUSEA/VOMITING Last Admin: 07/20/17 09:57 Dose: 12.5 mg Scopolamine HBr (Transderm-Scop) 1 patch TD Q3D [facility] Stop: 07/27/17 10:01 Last Admin: 07/18/17 10:27 Dose: 1 patch Senna/Docusate Sodium (Senokot-S, Kingsley-Colace) 2 tablet PO BID [facility] Last Admin: 07/20/17 09:04 Dose: 2 tablet Tramadol HCl (Ultram (G)) 50 - 100 mg PO Q6H PRN PRN PRN Reason: PAIN Last Admin: 07/18/17 04:04 Dose: 100 mg Assessment/Plan Active and Suspected Problems Obesity (BMI 30-39.9) (Acute) The patient is a 72 y/o F w/ PMHx: HTN, Obesity, OA, Hypothyroidism, Sinus arrhythmia following with Dr. Wheat who presents to the [facility] on 07/18/17 for continued PT, OT following recent revision L shoulder replacement per Dr. Vides. She had no kingsley-operative events. She was evaluated per Dr. Wheat and her PCP Dr. Begum prior to her operative intervention. (1) Severe OA, L Shoulder w/ prior Hemiarthroplasty: 07/17/17 Revision L shoulder replacement per Dr. Vides, maintain on pain regimen, bowel regimen broadened given no recent BM and abdominal discomfort as noted, DVT Prophylaxis transitioned as noted secondary to GI upset. Continued PT, OT, usage parameters to the LUE per Orthopedic surgery direction. Patient w/ noted skin tear RUE secondary to surgical tape, adhesive allergy listed, wound RN consulted per Rehab. (2) Constipation, Abdominal Distention, Increased: Likely secondary to recent narcotics, given distention complaint, KUB obtained, no acute findings but notable stool, discussed with patient and staff, will continue bowel regimen and will administer Fleetz to see if will assist in achieving bowel movement. Continue to follow with PRN anti-emetics. Additionally if needed will repeat KUB. (3) Hypertension: Continue home regimen including losartan, hydrochlorothiazide, PRN hydralazine. (4) Hx Graves Disease: Not on regimen currently, TSH 0.67 normal level, FT4 1.55 very mildly elevated, T3 level 2.6 normal level obtained. Encourage continued routine follow-up with her Artificial Stone Applicator. (5) Sinus arrhythmia: Falling outpatient with Dr. Wheat, stable. (6) Obesity: Weight loss and lifestyle changes encouraged. (7) DVT Prophylaxis: SCDs, transitioned from ASA 325 mg BID-->lovenox in case GI upset secondary to high dose ASA usage also. Code Visit Inpatient E&M: 55102 Subs Hosp L2
[2017-07-20] MEDS: Pantoprazole Sodium 20 MG Tablet PO (10:50)
[2017-07-20] MEDS: HYDROCHLOROTHIAZIDE 12.5 MG CAPSULE PO (10:50)
[2017-07-20] MEDS: Aspirin 325 MG Tablet PO (10:50)
[2017-07-20] MEDS: Losartan Potassium 50 MG Tablet PO (10:50)
[2017-07-20] MEDS: Fleet Enema 1 ML RECTAL (12:37)
--- NOTE | 2017-07-20 13:06 | NURSING ---
patient has medium results fro enema now therapy in with patient
[2017-07-20 18:20] VITALS: BP 159/75; PULSE 76; RESP 16; TEMP 37; O2SAT 98
[2017-07-20] MEDS: 0.9% Normal Saline 1,000 ML 125 ML IV (19:33)
--- NOTE | 2017-07-20 19:34 | NURSING ---
Started IV 22g in R. forearm, 1 attempt, NS infusing at 125mls/hr, pt tolerated well.
[2017-07-20 22:00] VITALS: PULSE 87; RESP 18; O2SAT 94
[2017-07-20] MEDS: Pantoprazole Sodium 40 MG Tablet PO (22:05)
[2017-07-21] MEDS: 0.9% Normal Saline 1,000 ML 125 ML IV ×3 (03:29→12:46)
--- NOTE | 2017-07-21 04:07 | NURSING ---
Reviewed and agree with REMOTE CONTROL MIRROR INSTALLER documentation.
[2017-07-21] MEDS: Enoxaparin 30 MG/0.3 ML Syringe SC (05:40)
--- NOTE | 2017-07-21 06:00 | RAD_ITS ---
STUDY: X-RAY - ABDOMEN/PELVIS REASON FOR EXAM: Female, 72 years old. Nausea and vomiting TECHNIQUE: Two AP supine views of the abdomen and pelvis. COMPARISON: None. FINDINGS: There is elevation of the right hemidiaphragm. Slightly dilated small bowel loops in the left upper quadrant and left mid abdomen. Gas and fecal material are seen in the colon. Mild gaseous distention of the stomach. The patient is status post cholecystectomy. Normal soft tissue structures. Status post right total hip replacement. RAD/Abdomen Single View (Portable) IMPRESSION: Persistent distended gas-filled small bowel loops in the left upper quadrant and left midabdomen. . May represent an ileus or partial obstruction. There has been no significant change since the previous study. Electronically Signed: Cinthya Banerjee MD at 10:14 EST Tel , Service support ,
--- NOTE | 2017-07-21 06:03 | NURSING ---
pt refusing to take medications d/t nausea at hs and this am . pt reports that this am she is having pressure in her epigastric region with burning in her esophagus. iv maintain and pt encouraged to get up and try to void. pt assisted to the bsc d/t nausea and voided 250cc of carol colored urine. rn made aware, pt kept on clear liquid this am for nausea 0616 x-ray to take KUB.
[2017-07-21 06:40] VITALS: O2SAT 93
[2017-07-21 07:47] LABS: Absolute Lymphocyte Count 1.12 X10^3/ul (0.83-4.51); Absolute Neutrophil Count 5.3 X10^3/uL (2.0-7.7); Basophil# 0.01 X10^3/uL; Basophil% 0.1 % (0-1); Eosinophil# 0.04 X10^3/uL; Eosinophils% 0.6 % (0-5); Hematocrit 40.4 % (37-47); Hemoglobin 12.7 g/dl (12.0-15.0); Lymphocyte # 1.12 X10^3/ul (4.0); Lymphocyte % 15.9 % (19-41); Mean Corp Hgb Conc 31.4 g/gl (32-36); Mean Corpuscular Hgb 30.4 pg (27.0-32.0); Mean Corpuscular Volume 96.7 fL (81-99); Mean Platelet Vol. 9.7 fl (6.2-12.0); Monocyte# 0.54 X10^3/uL; Monocyte% 7.7 % (0-10); Neutrophil # 5.32 X10^3/uL (2.7-7.7); Neutrophil % 75.7 % (47-70); POSITIVE COUNT NO; POSITIVE DIFFERENTIAL NO; POSITIVE MORPHOLOGY NO; Platelet Count 248 K/mm3 (150-450); RBC Distribution Width CV 13.4 % (11.6-14.6); Red Blood Count 4.18 M/mm3 (4.2-5.4)
[2017-07-21 08:08] LABS: ALB/GLOB Ratio 0.7 RATIO (0.9-2.4); AST(SGOT) 27 U/L (15-37); Alanine Aminotransfer ALT/SGPT 30 U/L (13-56); Albumin, Serum 2.5 g/dL (3.2-5.0); Alkaline Phosphatase 91 U/L (45-117); Anion Gap 11 (5-15); BUN 15 mg/dL (7-18); BUN/Creat Ratio 24.6 RATIO (10-20); Calcium,Total 8.7 mg/dL (8.5-10.1); Chloride 102 mmol/L (98-107); Creatinine, Serum 0.61 mg/dL (0.55-1.02); EST Glomerular Filtration Rate 103 mL/min (>60); Est Glom Filt Rate - Afr Amer 125 mL/min (>60); Globulin 3.6 g/dL (2.2-4.2); Glucose 87 mg/dL (74-106); Lipase 225 U/L (73-393); Potassium 3.1 mmol/L (3.5-5.1); Protein, Total 6.1 g/dL (6.4-8.2); Sodium Level 138 mmol/L (136-145)
[2017-07-21 09:10] VITALS: BP 151/73; PULSE 86; RESP 16; TEMP 36.7; O2SAT 95
[2017-07-21] MEDS: Senna/Docusate Sodium 1 Tablet 2 TABLET PO (09:39)
[2017-07-21] MEDS: Scopolamine 1mg/72hr Patch 1 PATCH TD (09:39)
[2017-07-21] MEDS: Losartan Potassium 50 MG Tablet PO (09:39)
[2017-07-21] MEDS: Pantoprazole Sodium 40 MG Tablet PO (09:39)
[2017-07-21] MEDS: HYDROCHLOROTHIAZIDE 12.5 MG CAPSULE PO (09:39)
[2017-07-21] MEDS: Polyethylene Glycol 3350 17 GM PACKET PO (09:40)
--- NOTE | 2017-07-21 10:31 | PCM.HOSP.N ---
Hospitalist Note Patient still having ongoing flatus, more epigastric discomfort, improved w/ GI cocktail. CBC, CMP, trop, lipase unremarkable, repeat 07/21/17 AM KUB w/ appearance of ileus although cannot rule out early SBO. Patient feeling improved after GI cocktail but not wanting to move or get out of bed. Encouraged ambulation and movement to assist w/ bowel function. If she does not improve, worsens or has further nausea, emesis would plan transition to MO for pSBO treatment versus ileus.
[2017-07-21] MEDS: Ondansetron 4 MG/2 ML Vial IV (12:45)
--- NOTE | 2017-07-21 15:30 | NURSING ---
Patient had been encouraged all morning from staff to ambulate per Dr Ruiz request and at this time she agreed for the first time and ambulated half loop around the rehab unit approx 150 feet and tolerated well. Continues to complain of nausea but no emesis today. Mild pain she reported to affected post op knee. Had half formed half loose stool this afternoon small-moderate amount per her RN today. Family requesting to speak to Dr. Ruiz and will be up to see family and Dr. Ruiz also updated on current stable condition.
[2017-07-21 15:35] VITALS: BP 154/73; PULSE 71; RESP 17; TEMP 36.7; O2SAT 99
[2017-07-21] MEDS: Acetaminophen 500 MG Tablet 1000 MG PO (15:50)
[2017-07-21] MEDS: 0.9% NaCl Peripheral Flush Adult/Peds IV (15:59)
--- NOTE | 2017-07-21 16:10 | NURSING ---
Dr. Ruiz aware of patient having liquid emesis approx 500cc.
--- NOTE | 2017-07-21 16:25 | PCM.RU.DC ---
Rehab Discharge Summary DATE OF ADMISSION: 07/17/17 DATE OF DISCHARGE: 07/21/17 Discharge Activity: - - readmission to hospital with nausea/vomiting and possible ileus vs SBO Home Medications: Medications to take at Discharge Losartan/Hydrochlorothiazide [Losartan-Hctz 50-12.5 mg Tab] 1 each PO DAILY 07/17/16 Acetaminophen [Tylenol] 1,000 mg PO Q8 07/17/17 Aspirin 325 mg PO BIDCM 07/17/17 Scopolamine Patch 1mg/72hr [Transderm-Scop] 1 patch TD Q3D 07/17/17 TraMADol [Ultram (G)] 50 mg PO Q6H PRN PRN 7 Days #60 tab 07/17/17 Primary Care Physician: Shoaib Begum DO [Primary Care Provider] - Rehab Course 72 yr CF with PMH HTN, OA, Grave's disease admitted to [facility] on 07/18/2017 s/p debility after right knee replacement, for > 3 hrs therapy daily with a goal of returning back to her home at or near prior level of functional independence. Patient following admission developed emesis, KUB done showed small bowel loop distention, with the possibility of ileus vs SBO, patient being transferred back to [facility] unit inpatient for further evaluation and management of persistent GI issues. Patient was evaluated by Dr. Ruiz in the rehab unit for the GI issues, and due to persistence of the symptoms have recommended transfer of patient to inpatient hospital setting for further evaluation and treatment. [] Meaningful Use Info Meaningful Use Diagnoses (Choose all that apply): None applicable
--- NOTE | 2017-07-21 16:40 | NURSING ---
Report given to Jenna on [facility] and patient will be transferred to [facility] per DR. Ruiz request and family present and aware.
[2017-07-23 15:45] VITALS: BP 159/86; PULSE 75; RESP 18; TEMP 36.6; O2SAT 97
--- NOTE | 2017-07-23 15:45 | NURSING ---
Patient readmitted to rehab unit with family present. Pleasant and cooperative. Loose stool (incontinent) noted and staff provides kingsley care.
--- NOTE | 2017-07-23 16:49 | PN.NEURO_ITS ---
Subjective: The patient is readmitted to the rehab unit after a stay in [facility] because of an ileus. She was treated conservatively with NG tube. She did not need anything as far as surgery goes. She now presents the rehab unit to continue her therapy which was originally initiated because of a right total knee replacement surgery. She is now having some diarrhea but otherwise feels good. She believes that her knee got a little stiff because of the lack of therapy but she is looking forward to completing therapy now. She lives with her in a two-story house and is otherwise relatively healthy. - Physical Exam General: Alert, Oriented x3, Cooperative HEENT: Atraumatic, PERRLA, EOMI, Normocephalic Neck: Supple, No JVD, Negative Carotid Bruits Lungs: Clear to auscultation, Normal air movement Cardiovascular: Regular rate, No murmurs Abdomen: Bowel Sounds Present, Soft, Non Tender Extremities: No edema, Capillary Refill Less than 3 Seconds Skin: No rashes, No breakdown Musculoskeletal: No Tenderness to Palpation of Joints or Extremities Neurological: Cranial nerves II-XII grossly intact Psych/Mental Status: Normal Affect, Appropriate Vital Signs Temp Pulse Resp BP Pulse Ox 36.7 C 71 17 154/73 H 99 07/21/17 15:35 07/21/17 15:35 07/21/17 15:35 07/21/17 15:35 07/21/17 15:35 Oxygen Delivery Method Room Air Weight: 99.932 kg Body Mass Index (BMI) 37.4 Intake and Output for Last 24 Hours 07/21/17 07/22/17 07/23/17 23:59 23:59 23:59 Intake Total 1088 / 1088 Output Total 50 / 50 Balance 1038 / 1038 Microbiology Past 72 Hours 07/20/17 18:49 - Final Mucosa - Nose Current Medications Generic Name Dose Route Start Last Admin Trade Name Freq PRN Reason Stop Dose Admin Acetaminophen 1,000 mg 07/23/17 22:00 Tylenol PO Q8 DESTINY Aspirin 325 mg 07/23/17 17:00 Aspirin PO BIDCM DESTINY Hydrochlorothiazide 12.5 mg 07/24/17 10:00 Hydrochlorothiazide PO DAILY [facility] Losartan Potassium 50 mg 07/24/17 10:00 Cozaar PO DAILY DESTINY Ondansetron HCl 4 mg 07/23/17 16:36 Zofran Odt PO Q8H PRN PRN NAUSEA/VOMITING Polyethylene Glycol 17 gm 07/24/17 10:00 Miralax PO DAILY DESTINY Scopolamine HBr 1 patch 07/24/17 10:00 Transderm-Scop TD Q3D DESTINY Senna/Docusate Sodium 2 tablet 07/23/17 22:00 Senokot-S, Nancy-Colace PO BID DESTINY Tramadol HCl 50 mg 07/23/17 16:35 Ultram (G) PO Q6H PRN PRN MODERATE PAIN (4-5/10) Assessment/Plan Debility status post right total knee replacement, complicated by an intercurrent ileus now resolved but does have some ongoing diarrhea. Plan: Physical therapy for gait and balance Occupational Therapy for ADLs Bowel protocol: Currently has diarrhea need to hold stool softeners As needed analgesics, used judiciously because of ileus DVT prophylaxis: Lovenox
[2017-07-23] MEDS: Aspirin 325 MG Tablet PO (17:44)
[2017-07-23 20:00] VITALS: BP 163/80; PULSE 79; RESP 18; TEMP 36.9; O2SAT 96
[2017-07-23] MEDS: Ondansetron ODT 4 MG Tablet PO (20:02)
[2017-07-23] MEDS: Acetaminophen 500 MG Tablet 1000 MG PO (20:09)
[2017-07-23] MEDS: Mag Hydrox/Al Hydrox/Simeth 30 ML UDC PO (20:10)
--- NOTE | 2017-07-24 00:53 | NURSING ---
REVIEWED AND AGREE WITH PATIENT SAFETY ATTENDANT'S FIM AND HANDOFF CHARTING.
[2017-07-24] MEDS: Acetaminophen 500 MG Tablet 1000 MG PO ×3 (06:17→22:03)
[2017-07-24 08:06] VITALS: O2SAT 96
[2017-07-24 08:25] VITALS: BP 158/80; PULSE 78; RESP 16; TEMP 36.7; O2SAT 96
[2017-07-24] MEDS: Aspirin 325 MG Tablet PO ×2 (08:38→16:21)
[2017-07-24] MEDS: Scopolamine 1mg/72hr Patch 1 PATCH TD (08:38)
[2017-07-24] MEDS: HYDROCHLOROTHIAZIDE 12.5 MG CAPSULE PO (08:38)
[2017-07-24] MEDS: Losartan Potassium 50 MG Tablet PO (08:38)
--- NOTE | 2017-07-24 11:01 | PCM.PN.NEU ---
Subjective: Patient seen and examined. Tolerating therapy. Continues to have some Diarrhea, will encourage fluid so that she does not become dehydrate. Lungs are slight diminished in the bases, encouraged her to use the IS at least ten times and hour while a wake. Orthopedic PA was in to see the patient and removed the sutures from the skin tear and placed steri strips and covered with a Mepilex dressing. Left instructions for us to remove every other staple in the knee incision on Saturday, may replaced them with steri strips. - Physical Exam General: Alert, Oriented x3, Cooperative HEENT: Atraumatic, PERRLA, EOMI, Normocephalic Neck: Supple, No JVD, Negative Carotid Bruits Lungs: Clear to auscultation, Normal air movement Cardiovascular: Regular rate, No murmurs Abdomen: Bowel Sounds Present, Soft, Non Tender Extremities: No edema, Capillary Refill Less than 3 Seconds Skin: No rashes, No breakdown Musculoskeletal: No Tenderness to Palpation of Joints or Extremities Neurological: Cranial nerves II-XII grossly intact Psych/Mental Status: Normal Affect, Appropriate Vital Signs Temp Pulse Resp BP Pulse Ox 98.0 F 78 16 158/80 H 96 07/24/17 08:25 07/24/17 08:25 07/24/17 08:25 07/24/17 08:25 07/24/17 08:25 Oxygen Delivery Method Room Air Weight: 99.8 kg Body Mass Index (BMI) 37.4 Intake and Output for Last 24 Hours 07/22/17 07/23/17 07/24/17 23:59 23:59 23:59 Intake Total 120 / 120 Balance 120 / 120 Microbiology Past 72 Hours 07/20/17 18:49 - Final Mucosa - Nose Active Medications Acetaminophen (Tylenol) 1,000 mg PO Q8 [facility] Last Admin: 07/24/17 06:17 Dose: 1,000 mg Al Hydroxide/Mg Hydroxide (Mylanta Ii) 30 ml PO Q6H PRN PRN PRN Reason: INDIGESTION Last Admin: 07/23/17 20:10 Dose: 30 ml Aspirin (Aspirin) 325 mg PO BIDCM [facility] Last Admin: 07/24/17 08:38 Dose: 325 mg Hydrochlorothiazide (Hydrochlorothiazide) 12.5 mg PO DAILY [facility] Last Admin: 07/24/17 08:38 Dose: 12.5 mg Losartan Potassium (Cozaar) 50 mg PO DAILY [facility] Last Admin: 07/24/17 08:38 Dose: 50 mg Ondansetron HCl (Zofran Odt) 4 mg PO Q8H PRN PRN PRN Reason: NAUSEA/VOMITING Last Admin: 07/23/17 20:02 Dose: 4 mg Polyethylene Glycol (Miralax) 17 gm PO DAILY [facility] Last Admin: 07/24/17 07:01 Dose: Not Given Scopolamine HBr (Transderm-Scop) 1 patch TD Q3D [facility] Last Admin: 07/24/17 08:38 Dose: 1 patch Senna/Docusate Sodium (Senokot-S, Nancy-Colace) 2 tablet PO BID [facility] Last Admin: 07/24/17 07:02 Dose: Not Given Tramadol HCl (Ultram (G)) 50 mg PO Q6H PRN PRN PRN Reason: MODERATE PAIN (4-5/10) Assessment/Plan Debility status post Right Total Knee Replacement. Goal of rehab is evangelical of prior level of functional independence. Plan: - Physical therapy for gait and balance - Occupational Therapy for ADLs - As needed analgesics => used judiciously because of ileus - Bowel protocol => Currently has diarrhea need to hold stool softeners - DVT prophylaxis: Lovenox, SCD's and Travis hose on the left leg - Hx of HTN -> continue home medications HCTZ and Cozaar - Incision Site -> C/D/I, will remove every other staple along the incision line on Saturday. - Skin tear right wilks from surgical drape -> Sutures removed and replaced with steri strips, covered with Mepilex dressing - Hx of Graves disease, no current treatment - Hx of Osteoarthritis
--- NOTE | 2017-07-24 11:04 | PN.NEURO_ITS ---
Subjective: Patient seen and examined. Tolerating therapy. Continues to have some Diarrhea , will encourage fluid so that she does not become dehydrate. Lungs are slight diminished in the bases, encouraged her to use the IS at least ten times and hour while a wake. Orthopedic PA was in to see the patient and removed the sutures from the skin tear and placed steri strips and covered with a Mepilex dressing. Left instructions for us to remove every other staple in the knee incision on Saturday, may replaced them with steri strips. - Physical Exam General: Alert, Oriented x3, Cooperative HEENT: Atraumatic, PERRLA, EOMI, Normocephalic Neck: Supple, No JVD, Negative Carotid Bruits Lungs: Clear to auscultation, Normal air movement Cardiovascular: Regular rate, No murmurs Abdomen: Bowel Sounds Present, Soft, Non Tender Extremities: No edema, Capillary Refill Less than 3 Seconds Skin: No rashes, No breakdown Musculoskeletal: No Tenderness to Palpation of Joints or Extremities Neurological: Cranial nerves II-XII grossly intact Psych/Mental Status: Normal Affect, Appropriate Vital Signs Temp Pulse Resp BP Pulse Ox 98.0 F 78 16 158/80 H 96 07/24/17 08:25 07/24/17 08:25 07/24/17 08:25 07/24/17 08:25 07/24/17 08:25 Oxygen Delivery Method Room Air Weight: 99.8 kg Body Mass Index (BMI) 37.4 Intake and Output for Last 24 Hours 07/22/17 07/23/17 07/24/17 23:59 23:59 23:59 Intake Total 120 / 120 Balance 120 / 120 Microbiology Past 72 Hours 07/20/17 18:49 - Final Mucosa - Nose Active Medications Acetaminophen (Tylenol) 1,000 mg PO Q8 [facility] Last Admin: 07/24/17 06:17 Dose: 1,000 mg Al Hydroxide/Mg Hydroxide (Mylanta Ii) 30 ml PO Q6H PRN PRN PRN Reason: INDIGESTION Last Admin: 07/23/17 20:10 Dose: 30 ml Aspirin (Aspirin) 325 mg PO BIDCM [facility] Last Admin: 07/24/17 08:38 Dose: 325 mg Hydrochlorothiazide (Hydrochlorothiazide) 12.5 mg PO DAILY [facility] Last Admin: 07/24/17 08:38 Dose: 12.5 mg Losartan Potassium (Cozaar) 50 mg PO DAILY [facility] Last Admin: 07/24/17 08:38 Dose: 50 mg Ondansetron HCl (Zofran Odt) 4 mg PO Q8H PRN PRN PRN Reason: NAUSEA/VOMITING Last Admin: 07/23/17 20:02 Dose: 4 mg Polyethylene Glycol (Miralax) 17 gm PO DAILY [facility] Last Admin: 07/24/17 07:01 Dose: Not Given Scopolamine HBr (Transderm-Scop) 1 patch TD Q3D [facility] Last Admin: 07/24/17 08:38 Dose: 1 patch Senna/Docusate Sodium (Senokot-S, Nancy-Colace) 2 tablet PO BID [facility] Last Admin: 07/24/17 07:02 Dose: Not Given Tramadol HCl (Ultram (G)) 50 mg PO Q6H PRN PRN PRN Reason: MODERATE PAIN (4-5/10) Assessment/Plan Debility status post Right Total Knee Replacement. Goal of rehab is yazidism of prior level of functional independence. Plan: - Physical therapy for gait and balance - Occupational Therapy for ADLs - As needed analgesics => used judiciously because of ileus - Bowel protocol => Currently has diarrhea need to hold stool softeners - DVT prophylaxis: Lovenox, SCD's and Travis hose on the left leg - Hx of HTN -> continue home medications HCTZ and Cozaar - Incision Site -> C/D/I, will remove every other staple along the incision line on Saturday. - Skin tear right wilks from surgical drape -> Sutures removed and replaced with steri strips, covered with Mepilex dressing - Hx of Graves disease, no current treatment - Hx of Osteoarthritis
--- NOTE | 2017-07-24 13:52 | PCM.PN.HOSP ---
Subjective: Patient was seen and examined. Complains of nasal drainage, denies fever or chills. Had a bout of diarrhea without abdominal pain. Has had only one bowel movement today. Objective: Physical Examination: General: awake, alert, oriented x 3 and cooperative, in no apparent distress. Skin: normal color, turgor, no icterus, cyanosis, s/p R TKR. HEENT: Dry oral mucosa Lungs: CTA bilaterally, Vesicular BS, no rales, ronchi or wheezing. Heart: Regular rate and rhythm; no gallop, rub audible. Abdomen: soft, obese,moderately distended but soft, non-tender, normal BS Extremities: no edema. Cooling pad to the right knee Neurological: patient awake, alert, oriented x 3; cognitive function intact; pupils equally reactive to light and accomodation; cranial nerves II-XII grossly normal, moving all 4 extremities except expected limitations given recent R TKR and prior remote operative interventions to LUE Psychiatric: affect appears fatigued, no acute evidence of depressive or anxiety feelings. Vitals/I&O's: Vital Signs Temp Pulse Resp BP Pulse Ox 98.0 F 78 16 158/80 H 96 07/24/17 08:25 07/24/17 08:25 07/24/17 08:25 07/24/17 08:25 07/24/17 08:25 Oxygen Delivery Method Room Air Weight: 99.8 kg Body Mass Index (BMI) 37.4 Intake and Output for Last 24 Hours 07/22/17 07/23/17 07/24/17 23:59 23:59 23:59 Intake Total 300 / 300 Balance 300 / 300 Microbiology Past 72 Hours 07/20/17 18:49 Mucosa - Nose - Final Current Medications Acetaminophen (Tylenol) 1,000 mg PO Q8 [facility] Last Admin: 07/24/17 13:04 Dose: 1,000 mg Al Hydroxide/Mg Hydroxide (Mylanta Ii) 30 ml PO Q6H PRN PRN PRN Reason: INDIGESTION Last Admin: 07/23/17 20:10 Dose: 30 ml Aspirin (Aspirin) 325 mg PO BIDCM [facility] Last Admin: 07/24/17 08:38 Dose: 325 mg Guaifenesin (Robitussin Dm) 10 ml PO Q6H PRN PRN PRN Reason: COUGH Hydrochlorothiazide (Hydrochlorothiazide) 12.5 mg PO DAILY [facility] Last Admin: 07/24/17 08:38 Dose: 12.5 mg Losartan Potassium (Cozaar) 50 mg PO DAILY [facility] Last Admin: 07/24/17 08:38 Dose: 50 mg Ondansetron HCl (Zofran Odt) 4 mg PO Q8H PRN PRN PRN Reason: NAUSEA/VOMITING Last Admin: 07/23/17 20:02 Dose: 4 mg Polyethylene Glycol (Miralax) 17 gm PO DAILY [facility] Last Admin: 07/24/17 07:01 Dose: Not Given Scopolamine HBr (Transderm-Scop) 1 patch TD Q3D [facility] Last Admin: 07/24/17 08:38 Dose: 1 patch Senna/Docusate Sodium (Senokot-S, Nancy-Colace) 2 tablet PO BID [facility] Last Admin: 07/24/17 07:02 Dose: Not Given Tramadol HCl (Ultram (G)) 50 mg PO Q6H PRN PRN PRN Reason: MODERATE PAIN (4-5/10) Assessment/Plan 72 y/o F with PMHx of hypertension, obesity, OA, Hypothyroidism, admitted to the acute rehab after a brief hospital stay for post-operative ileus which was managed conservatively. 1. Debility related to recent surgery, post-op ileus, undergoing therapy in acute rehab. 2. Post-op ileus, managed conservatively in the hospital with NG tube with success. Tolerating regular diet 3. s/p Right total knee replacement on 07/15/2017, pain is controlled, will continue with therapy. 4. Hx Graves Disease, needs to follow-up in the outpatient with safety spec, 5. Sinus arrhythmia, follow-up with cardiology in the outpatient. 6. Obesity, weight loss and lifestyle changes encouraged. 7. GERD, on famotidine 8. Hypertension, fairly uncontrolled on Losartan and HCTZ. Will monitor for now as patient was recently restarted on these medications after being off of them in the hospital. Will make adjustments if BP remains uncontrolled. 9. DVT Prophylaxis with SCDs, lovenox. Code Visit Inpatient E&M: 49796 Subs Hosp L2
[2017-07-24] MEDS: guaiFENesin Dm 10 ML UDC PO (15:24)
[2017-07-24 20:03] VITALS: BP 162/84; PULSE 86; RESP 12; TEMP 36.8; O2SAT 96
[2017-07-25] MEDS: Acetaminophen 500 MG Tablet 1000 MG PO ×3 (05:11→21:48)
[2017-07-25 06:22] LABS: Anion Gap 7 (5-15); BUN 5 mg/dL (7-18); BUN/Creat Ratio 9.5 RATIO (10-20); Calcium,Total 8.4 mg/dL (8.5-10.1); Chloride 106 mmol/L (98-107); Creatinine, Serum 0.52 mg/dL (0.55-1.02); EST Glomerular Filtration Rate 123 mL/min (>60); Est Glom Filt Rate - Afr Amer 148 mL/min (>60); Glucose 101 mg/dL (74-106); Potassium 3.2 mmol/L (3.5-5.1); Sodium Level 142 mmol/L (136-145)
[2017-07-25 07:56] VITALS: BP 149/72; PULSE 81; RESP 17; TEMP 36.8; O2SAT 95
[2017-07-25] MEDS: Famotidine 20 MG Tablet PO (09:33)
[2017-07-25] MEDS: HYDROCHLOROTHIAZIDE 12.5 MG CAPSULE PO (09:33)
[2017-07-25] MEDS: Aspirin 325 MG Tablet PO ×2 (09:33→17:23)
[2017-07-25] MEDS: Losartan Potassium 50 MG Tablet PO (09:33)
--- NOTE | 2017-07-25 10:22 | PCM.PN.NEU ---
Subjective: Patient seen during therapy session. The diarrhea is improving no episodes today. Potassium was low at 3.2 will give KCL x 3 days and recheck Saturday. Other rivera she is tolerating therapy, is able to walk more than 600ft. Per the patient she feels good, and is ready to go home. - Physical Exam General: Alert, Oriented x3, Cooperative HEENT: Atraumatic, PERRLA, EOMI, Normocephalic Neck: Supple, No JVD, Negative Carotid Bruits Lungs: Clear to auscultation, Normal air movement Cardiovascular: Regular rate, No murmurs Abdomen: Bowel Sounds Present, Soft, Non Tender Extremities: No edema, Capillary Refill Less than 3 Seconds Skin: No rashes, No breakdown Musculoskeletal: No Tenderness to Palpation of Joints or Extremities Neurological: Cranial nerves II-XII grossly intact Psych/Mental Status: Normal Affect, Appropriate Vital Signs Temp Pulse Resp BP Pulse Ox 98.2 F 81 17 149/72 H 95 07/25/17 07:56 07/25/17 07:56 07/25/17 07:56 07/25/17 07:56 07/25/17 07:56 Oxygen Delivery Method Room Air Weight: 99.8 kg Body Mass Index (BMI) 37.4 Intake and Output for Last 24 Hours 07/23/17 07/24/17 07/25/17 23:59 23:59 23:59 Intake Total 660 / 660 320 / 320 Balance 660 / 660 320 / 320 Laboratory Tests Past 24 Hrs 07/25/17 05:40 Sodium 142 Potassium 3.2 L Chloride 106 Carbon Dioxide 29.0 Anion Gap 7 BUN 5 L Creatinine 0.52 L Estim Creat Clear Calc 45.20 Est GFR (MDRD) Af Amer 148 Est GFR (MDRD) Non-Af 123 BUN/Creatinine Ratio 9.5 L Glucose 101 Calcium 8.4 L Active Medications Acetaminophen (Tylenol) 1,000 mg PO Q8 [facility] Last Admin: 07/25/17 05:11 Dose: 1,000 mg Al Hydroxide/Mg Hydroxide (Mylanta Ii) 30 ml PO Q6H PRN PRN PRN Reason: INDIGESTION Last Admin: 07/23/17 20:10 Dose: 30 ml [facility] Last Admin: 07/25/17 09:33 Dose: 325 mg Famotidine (Pepcid) 20 mg PO DAILY [facility] Last Admin: 07/25/17 09:33 Dose: 20 mg Guaifenesin (Robitussin Dm) 10 ml PO Q6H PRN PRN PRN Reason: COUGH Last Admin: 07/24/17 15:24 Dose: 10 ml Hydrochlorothiazide (Hydrochlorothiazide) 12.5 mg PO DAILY [facility] Last Admin: 07/25/17 09:33 Dose: 12.5 mg Losartan Potassium (Cozaar) 50 mg PO DAILY [facility] Last Admin: 07/25/17 09:33 Dose: 50 mg Ondansetron HCl (Zofran Odt) 4 mg PO Q8H PRN PRN PRN Reason: NAUSEA/VOMITING Last Admin: 07/23/17 20:02 Dose: 4 mg Polyethylene Glycol (Miralax) 17 gm PO DAILY [facility] Last Admin: 07/25/17 09:33 Dose: Not Given Scopolamine HBr (Transderm-Scop) 1 patch TD Q3D [facility] Last Admin: 07/24/17 08:38 Dose: 1 patch Senna/Docusate Sodium (Senokot-S, Nancy-Colace) 2 tablet PO BID [facility] Last Admin: 07/25/17 09:33 Dose: Not Given Tramadol HCl (Ultram (G)) 50 mg PO Q6H PRN PRN PRN Reason: MODERATE PAIN (4-5/10) Last Admin: 07/25/17 09:36 Dose: 50 mg Assessment/Plan Debility status post Right Total Knee Replacement. Goal of rehab is holiness of prior level of functional independence. Plan: - Physical therapy for gait and balance - Occupational Therapy for ADLs - As needed analgesics => used judiciously because of ileus - Bowel protocol => Currently has diarrhea need to hold stool softeners - DVT prophylaxis: Lovenox, SCD's and Travis hose on the left leg - Hx of HTN -> continue home medications HCTZ and Cozaar - Incision Site -> C/D/I, will remove every other staple along the incision line on Saturday. - Skin tear right wilks from surgical drape -> Sutures removed and replaced with steri strips, covered with Mepilex dressing - Hx of Graves disease, no current treatment - Hx of Osteoarthritis - Hypokalemia 2/2 diarrhea => K+ was 3.2 will give 10meq KCl BID x 3 days and recheck on Saturday
--- NOTE | 2017-07-25 10:35 | PN.NEURO_ITS ---
Subjective: Patient seen during therapy session. The diarrhea is improving no episodes today. Potassium was low at 3.2 will give KCL x 3 days and recheck Saturday. Other rivera she is tolerating therapy, is able to walk more than 600ft. Per the patient she feels good, and is ready to go home. - Physical Exam General: Alert, Oriented x3, Cooperative HEENT: Atraumatic, PERRLA, EOMI, Normocephalic Neck: Supple, No JVD, Negative Carotid Bruits Lungs: Clear to auscultation, Normal air movement Cardiovascular: Regular rate, No murmurs Abdomen: Bowel Sounds Present, Soft, Non Tender Extremities: No edema, Capillary Refill Less than 3 Seconds Skin: No rashes, No breakdown Musculoskeletal: No Tenderness to Palpation of Joints or Extremities Neurological: Cranial nerves II-XII grossly intact Psych/Mental Status: Normal Affect, Appropriate Vital Signs Temp Pulse Resp BP Pulse Ox 98.2 F 81 17 149/72 H 95 07/25/17 07:56 07/25/17 07:56 07/25/17 07:56 07/25/17 07:56 07/25/17 07:56 Oxygen Delivery Method Room Air Weight: 99.8 kg Body Mass Index (BMI) 37.4 Intake and Output for Last 24 Hours 07/23/17 07/24/17 07/25/17 23:59 23:59 23:59 Intake Total 660 / 660 320 / 320 Balance 660 / 660 320 / 320 Laboratory Tests Past 24 Hrs 07/25/17 05:40 Sodium 142 Potassium 3.2 L Chloride 106 Carbon Dioxide 29.0 Anion Gap 7 BUN 5 L Creatinine 0.52 L Estim Creat Clear Calc 45.20 Est GFR (MDRD) Af Amer 148 Est GFR (MDRD) Non-Af 123 BUN/Creatinine Ratio 9.5 L Glucose 101 Calcium 8.4 L Active Medications Acetaminophen (Tylenol) 1,000 mg PO Q8 [facility] Last Admin: 07/25/17 05:11 Dose: 1,000 mg Al Hydroxide/Mg Hydroxide (Mylanta Ii) 30 ml PO Q6H PRN PRN PRN Reason: INDIGESTION Last Admin: 07/23/17 20:10 Dose: 30 ml [facility]) [facility] Last Admin: 07/25/17 09:33 Dose: 325 mg Famotidine (Pepcid) 20 mg PO DAILY [facility] Last Admin: 07/25/17 09:33 Dose: 20 mg Guaifenesin (Robitussin Dm) 10 ml PO Q6H PRN PRN PRN Reason: COUGH Last Admin: 07/24/17 15:24 Dose: 10 ml Hydrochlorothiazide (Hydrochlorothiazide) 12.5 mg PO DAILY [facility] Last Admin: 07/25/17 09:33 Dose: 12.5 mg Losartan Potassium (Cozaar) 50 mg PO DAILY [facility] Last Admin: 07/25/17 09:33 Dose: 50 mg Ondansetron HCl (Zofran Odt) 4 mg PO Q8H PRN PRN PRN Reason: NAUSEA/VOMITING Last Admin: 07/23/17 20:02 Dose: 4 mg Polyethylene Glycol (Miralax) 17 gm PO DAILY [facility] Last Admin: 07/25/17 09:33 Dose: Not Given Scopolamine HBr (Transderm-Scop) 1 patch TD Q3D [facility] Last Admin: 07/24/17 08:38 Dose: 1 patch Senna/Docusate Sodium (Senokot-S, Nancy-Colace) 2 tablet PO BID [facility] Last Admin: 07/25/17 09:33 Dose: Not Given Tramadol HCl (Ultram (G)) 50 mg PO Q6H PRN PRN PRN Reason: MODERATE PAIN (4-5/10) Last Admin: 07/25/17 09:36 Dose: 50 mg Assessment/Plan Debility status post Right Total Knee Replacement. Goal of rehab is sikhism of prior level of functional independence. Plan: - Physical therapy for gait and balance - Occupational Therapy for ADLs - As needed analgesics => used judiciously because of ileus - Bowel protocol => Currently has diarrhea need to hold stool softeners - DVT prophylaxis: Lovenox, SCD's and Travis hose on the left leg - Hx of HTN -> continue home medications HCTZ and Cozaar - Incision Site -> C/D/I, will remove every other staple along the incision line on Saturday. - Skin tear right wilks from surgical drape -> Sutures removed and replaced with steri strips, covered with Mepilex dressing - Hx of Graves disease, no current treatment - Hx of Osteoarthritis - Hypokalemia 2/2 diarrhea => K+ was 3.2 will give 10meq KCl BID x 3 days and recheck on Saturday
--- NOTE | 2017-07-25 13:06 | NURSING ---
scopolamine patch removed per orders
[2017-07-25 20:39] VITALS: BP 143/80; PULSE 76; RESP 16; TEMP 36.7; O2SAT 98
[2017-07-25] MEDS: Senna/Docusate Sodium 1 Tablet 2 TABLET PO (21:48)
--- NOTE | 2017-07-26 02:54 | NURSING ---
Reviewed and agree with [employer] documentation.
[2017-07-26] MEDS: Acetaminophen 500 MG Tablet 1000 MG PO ×3 (05:21→20:16)
[2017-07-26] MEDS: Aspirin 325 MG Tablet PO ×2 (08:20→17:23)
[2017-07-26 09:16] VITALS: BP 160/83; PULSE 80; RESP 18; TEMP 36.6; O2SAT 95
[2017-07-26] MEDS: HYDROCHLOROTHIAZIDE 12.5 MG CAPSULE PO (09:20)
[2017-07-26] MEDS: Famotidine 20 MG Tablet PO (09:20)
[2017-07-26] MEDS: Losartan Potassium 50 MG Tablet PO ×2 (09:21→17:23)
--- NOTE | 2017-07-26 15:16 | PN_ITS ---
Subjective: Patient was seen and examined. No more nausea or vomiting. Vitals reviewed; BP has been running relatively high. Objective: Physical Examination: General: awake, alert, oriented x 3 and cooperative, in no apparent distress. Skin: normal color, turgor, no icterus, cyanosis, s/p R TKR. HEENT: Dry oral mucosa Lungs: CTA bilaterally, Vesicular BS, no rales, ronchi or wheezing. Heart: Regular rate and rhythm; no gallop, rub audible. Abdomen: soft, obese,moderately distended but soft, non-tender, normal BS Extremities: no edema. Cooling pad to the right knee Neurological: patient awake, alert, oriented x 3; cognitive function intact; pupils equally reactive to light and accomodation; cranial nerves II-XII grossly normal, moving all 4 extremities except expected limitations given recent R TKR and prior remote operative interventions to LUE Psychiatric: affect appears fatigued, no acute evidence of depressive or anxiety feelings. Vitals/I&O's: Vital Signs Temp Pulse Resp BP Pulse Ox 97.8 F 80 18 160/83 H 95 07/26/17 09:16 07/26/17 09:16 07/26/17 09:16 07/26/17 09:16 07/26/17 09:16 Oxygen Delivery Method Room Air Weight: 99.8 kg Body Mass Index (BMI) 37.4 Intake and Output for Last 24 Hours 07/24/17 07/25/17 07/26/17 23:59 23:59 23:59 Intake Total 660 / 660 800 / 800 460 / 460 Balance 660 / 660 800 / 800 460 / 460 Current Medications Acetaminophen (Tylenol) 1,000 mg PO Q8 [facility] Last Admin: 07/26/17 05:21 Dose: 1,000 mg Al Hydroxide/Mg Hydroxide (Mylanta Ii) 30 ml PO Q6H PRN PRN PRN Reason: INDIGESTION Last Admin: 07/23/17 20:10 Dose: 30 ml Aspirin (Aspirin) 325 mg PO BIDCM [facility] Last Admin: 07/26/17 08:20 Dose: 325 mg Famotidine (Pepcid) 20 mg PO DAILY [facility] Last Admin: 07/26/17 09:20 Dose: 20 mg Guaifenesin (Robitussin Dm) 10 ml PO Q6H PRN PRN PRN Reason: COUGH Last Admin: 07/24/17 15:24 Dose: 10 ml Hydrochlorothiazide (Hydrochlorothiazide) 12.5 mg PO DAILY [facility] Last Admin: 07/26/17 09:20 Dose: 12.5 mg Losartan Potassium (Cozaar) 50 mg PO DAILY [facility] Last Admin: 07/26/17 09:21 Dose: 50 mg Ondansetron HCl (Zofran Odt) 4 mg PO Q8H PRN PRN PRN Reason: NAUSEA/VOMITING Last Admin: 07/23/17 20:02 Dose: 4 mg Polyethylene Glycol (Miralax) 17 gm PO DAILY [facility] Last Admin: 07/26/17 09:19 Dose: Not Given Potassium [facility]Dur[facility] Stop: 07/27/17 23:59 Last Admin: 07/26/17 09:18 Dose: Not Given Senna/Docusate Sodium (Senokot-S, Nancy-Colace) 2 tablet PO BID [facility] Last Admin: 07/26/17 09:19 Dose: Not Given Tramadol HCl (Ultram (G)) 50 mg PO Q6H PRN PRN PRN Reason: MODERATE PAIN (4-5/10) Last Admin: 07/26/17 08:20 Dose: 50 mg Assessment/Plan 72 y/o F with PMHx of hypertension, obesity, OA, Hypothyroidism, admitted to the acute rehab after a brief hospital stay for post-operative ileus which was managed conservatively. 1. Debility related to recent surgery, post-op ileus, undergoing therapy in acute rehab. 2. Post-op ileus, managed conservatively in the hospital with NG tube with success. Tolerating regular diet 3. s/p Right total knee replacement on 07/15/2017, pain is controlled, will continue with therapy. 4. Hypertension, uncontrolled, on Losartan and HCTZ, will increase Losartan to 100mg po daily, and continue on HCTZ 5. Hypokalemia, replaced, recheck in am 6. Hx Graves Disease, needs to follow-up in the outpatient with sociology research assistant, 7. Sinus arrhythmia, follow-up with cardiology in the outpatient. 8. Obesity, weight loss and lifestyle changes encouraged. 9. GERD, on famotidine 10. DVT Prophylaxis with SCDs, lovenox. Code Visit Inpatient E&M: 38880 Subs Hosp L2
[2017-07-26 15:49] VITALS: BP 162/71; PULSE 83
[2017-07-26 19:20] VITALS: BP 160/57; PULSE 85; RESP 18; TEMP 36.3; O2SAT 96
[2017-07-26 20:10] VITALS: PULSE 85; RESP 18; O2SAT 96
--- NOTE | 2017-07-27 03:31 | NURSING ---
Reviewed and agree with LPNs fims and handoff
[2017-07-27] MEDS: Acetaminophen 500 MG Tablet 1000 MG PO ×3 (05:35→21:06)
[2017-07-27 07:21] LABS: Anion Gap 7 (5-15); BUN 8 mg/dL (7-18); BUN/Creat Ratio 14.7 RATIO (10-20); Calcium,Total 8.8 mg/dL (8.5-10.1); Chloride 106 mmol/L (98-107); Creatinine, Serum 0.54 mg/dL (0.55-1.02); EST Glomerular Filtration Rate 118 mL/min (>60); Est Glom Filt Rate - Afr Amer 142 mL/min (>60); Glucose 101 mg/dL (74-106); Potassium 3.9 mmol/L (3.5-5.1); Sodium Level 140 mmol/L (136-145)
[2017-07-27 07:54] VITALS: BP 165/73; PULSE 73; RESP 18; TEMP 36.5; O2SAT 94
[2017-07-27] MEDS: HYDROCHLOROTHIAZIDE 12.5 MG CAPSULE PO (08:21)
[2017-07-27] MEDS: Famotidine 20 MG Tablet PO (08:21)
[2017-07-27] MEDS: Losartan Potassium 100 MG Tablet PO (08:22)
[2017-07-27] MEDS: Aspirin 325 MG Tablet PO ×2 (08:22→17:07)
[2017-07-27 18:35] VITALS: BP 162/75; PULSE 86; RESP 17; TEMP 36.8; O2SAT 97
[2017-07-28] MEDS: Acetaminophen 500 MG Tablet 1000 MG PO ×3 (06:37→20:35)
[2017-07-28 07:10] VITALS: BP 152/76; PULSE 78; RESP 18; TEMP 36.8; O2SAT 96
[2017-07-28] MEDS: Aspirin 325 MG Tablet PO ×2 (08:17→16:54)
[2017-07-28] MEDS: Famotidine 20 MG Tablet PO (08:17)
[2017-07-28] MEDS: Losartan Potassium 100 MG Tablet PO (08:17)
[2017-07-28] MEDS: HYDROCHLOROTHIAZIDE 12.5 MG CAPSULE PO (08:18)
--- NOTE | 2017-07-28 11:26 | NURSING ---
patient ambulated > 150 ft with walker x supervision this shift
--- NOTE | 2017-07-28 13:21 | PN.NEURO_ITS ---
Subjective: No further GI complaints. She feels that this is normalized. She is tolerating therapies. Tolerating p.o. Pain is controlled. - Physical Exam General: Alert, Oriented x3, Cooperative, No apparent distress Extremities: No Calf Tenderness, - - Right knee incision is clear with doreen in place Neurological: Cranial nerves II-XII grossly intact Psych/Mental Status: Normal Affect Vital Signs Temp Pulse Resp BP Pulse Ox 36.8 C 78 18 152/76 H 96 07/28/17 07:10 07/28/17 07:10 07/28/17 07:10 07/28/17 07:10 07/28/17 07:10 Oxygen Delivery Method Room Air Weight: 99.8 kg Body Mass Index (BMI) 37.4 Intake and Output for Last 24 Hours 07/26/17 07/27/17 07/28/17 23:59 23:59 23:59 Intake Total 580 / 580 600 / 600 Balance 580 / 580 600 / 600 Current Medications Generic Name Dose Route Start Last Admin Trade Name Freq PRN Reason Stop Dose Admin Acetaminophen 1,000 mg 07/23/17 22:00 07/28/17 06:37 Tylenol PO 1,000 mg Q8 [facility] Administration Al Hydroxide/Mg Hydroxide 30 ml 07/23/17 19:29 07/23/17 20:10 Mylanta Ii PO 30 ml Q6H PRN PRN Administration INDIGESTION Aspirin 325 mg 07/23/17 17:00 07/28/17 08:17 Aspirin PO 325 mg BIDCM [facility] Administration Famotidine 20 mg 07/25/17 10:00 07/28/17 08:17 Pepcid PO 20 mg DAILY [facility] Administration Guaifenesin 10 ml 07/24/17 11:42 07/24/17 15:24 Robitussin Dm PO 10 ml Q6H PRN PRN Administration COUGH Hydrochlorothiazide 12.5 mg 07/24/17 10:00 07/28/17 08:18 Hydrochlorothiazide PO 12.5 mg DAILY [facility] Administration Losartan Potassium 100 mg 07/27/17 10:00 07/28/17 08:17 Cozaar PO 100 mg DAILY [facility] Administration Ondansetron HCl 4 mg 07/23/17 16:36 07/23/17 20:02 Zofran Odt PO 4 mg Q8H PRN PRN Administration NAUSEA/VOMITING Polyethylene Glycol 17 gm 07/24/17 10:00 07/28/17 08:18 Miralax PO Not Given DAILY [facility] Senna/Docusate Sodium 2 tablet 07/23/17 22:00 07/28/17 08:18 Senokot-S, Nancy-Colace PO Not Given BID [facility] Tramadol HCl 50 mg 07/23/17 16:35 07/26/17 08:20 Ultram (G) PO 50 mg Q6H PRN PRN Administration MODERATE PAIN (4-5/10) Assessment/Plan Debility status post right total knee replacement, complicated by an intercurrent ileus now resolved but does have some ongoing diarrhea. Plan: Physical therapy for gait and balance Occupational Therapy for ADLs Bowel protocol: Currently has diarrhea need to hold stool softeners As needed analgesics, used judiciously because of ileus DVT prophylaxis: Lovenox
--- NOTE | 2017-07-28 14:04 | PN_ITS ---
Subjective: patient was seen and examined. No new complains. Therapy is going well. Denies SOB, chest pain or dizziness. Objective: Physical Examination: General: awake, alert, oriented x 3 and cooperative, in no apparent distress. Skin: normal color, turgor, no icterus, cyanosis, s/p R TKR. HEENT: Dry oral mucosa Lungs: CTA bilaterally, Vesicular BS, no rales, ronchi or wheezing. Heart: Regular rate and rhythm; no gallop, rub audible. Abdomen: soft, obese,moderately distended but soft, non-tender, normal BS Extremities: no edema. Cooling pad to the right knee Neurological: patient awake, alert, oriented x 3; cognitive function intact; pupils equally reactive to light and accomodation; cranial nerves II-XII grossly normal, moving all 4 extremities except expected limitations given recent R TKR and prior remote operative interventions to LUE Psychiatric: affect appears fatigued, no acute evidence of depressive or anxiety feelings. Vitals/I&O's: Vital Signs Temp Pulse Resp BP Pulse Ox 98.3 F 78 18 152/76 H 96 07/28/17 07:10 07/28/17 07:10 07/28/17 07:10 07/28/17 07:10 07/28/17 07:10 Oxygen Delivery Method Room Air Weight: 99.8 kg Body Mass Index (BMI) 37.4 Intake and Output for Last 24 Hours 07/26/17 07/27/17 07/28/17 23:59 23:59 23:59 Intake Total 580 / 580 600 / 600 Balance 580 / 580 600 / 600 Current Medications Acetaminophen (Tylenol) 1,000 mg PO Q8 [facility] Last Admin: 07/28/17 06:37 Dose: 1,000 mg Al Hydroxide/Mg Hydroxide (Mylanta Ii) 30 ml PO Q6H PRN PRN PRN Reason: INDIGESTION Last Admin: 07/23/17 20:10 Dose: 30 ml Aspirin (Aspirin) 325 mg PO BIDCM [facility] Last Admin: 07/28/17 08:17 Dose: 325 mg Famotidine (Pepcid) 20 mg PO DAILY [facility] Last Admin: 07/28/17 08:17 Dose: 20 mg Guaifenesin (Robitussin Dm) 10 ml PO Q6H PRN PRN PRN Reason: COUGH Last Admin: 07/24/17 15:24 Dose: 10 ml Hydrochlorothiazide (Hydrochlorothiazide) 12.5 mg PO DAILY [facility] Last Admin: 07/28/17 08:18 Dose: 12.5 mg Losartan Potassium (Cozaar) 100 mg PO DAILY [facility] Last Admin: 07/28/17 08:17 Dose: 100 mg Ondansetron HCl (Zofran Odt) 4 mg PO Q8H PRN PRN PRN Reason: NAUSEA/VOMITING Last Admin: 07/23/17 20:02 Dose: 4 mg Polyethylene Glycol (Miralax) 17 gm PO DAILY [facility] Last Admin: 07/28/17 08:18 Dose: Not Given Senna/Docusate Sodium (Senokot-S, Nancy-Colace) 2 tablet PO BID [facility] Last Admin: 07/28/17 08:18 Dose: Not Given Tramadol HCl (Ultram (G)) 50 mg PO Q6H PRN PRN PRN Reason: MODERATE PAIN (4-5/10) Last Admin: 07/26/17 08:20 Dose: 50 mg Assessment/Plan 72 y/o F with PMHx of hypertension, obesity, OA, Hypothyroidism, admitted to the acute rehab after a brief hospital stay for post-operative ileus which was managed conservatively. 1. Debility related to recent surgery, improving with therapy, 2. Post-op ileus, resolved, no bowel issues 3. s/p Right total knee replacement on 07/15/2017, pain is controlled, will continue with therapy. 4. Hypertension, uncontrolled, on Losartan and HCTZ, Losartan recently increased to 100mg po daily, will add amlodipine 5mg po daily, continue HCTZ. 5. Hypokalemia,resolved 6. 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 Sinus arrhythmia, follow-up with cardiology in the outpatient. 8. Obesity, weight loss and lifestyle changes encouraged. 9. GERD, on famotidine 10. DVT Prophylaxis with SCDs, lovenox. Code Visit Inpatient E&M: 32462 Subs Hosp L2
[2017-07-28 14:28] VITALS: BP 167/83; PULSE 99
[2017-07-28] MEDS: amLODIPine 5 MG Tablet PO (14:33)
[2017-07-28] MEDS: Menthol/Lanolin/Calamine/Znox 113 GM Tube 1 APPLIC TOPICAL (20:33)
[2017-07-28 22:00] VITALS: BP 150/63; PULSE 86; RESP 16; TEMP 36.8; O2SAT 96
--- NOTE | 2017-07-29 01:06 | NURSING ---
Reviewed and agree with LPNs fims and shift clinical findings
[2017-07-29] MEDS: Menthol/Lanolin/Calamine/Znox 113 GM Tube 1 APPLIC TOPICAL ×3 (05:52→20:11)
[2017-07-29] MEDS: Acetaminophen 500 MG Tablet 1000 MG PO ×3 (05:52→20:10)
--- NOTE | 2017-07-29 06:38 | NURSING ---
15 doreen removed from surgical knee. incision well approximated with no drainage. pt tolerated procedure well.
[2017-07-29 07:25] VITALS: BP 163/83; PULSE 90; RESP 17; TEMP 36.5; O2SAT 93
[2017-07-29] MEDS: amLODIPine 5 MG Tablet PO (07:32)
[2017-07-29] MEDS: Aspirin 325 MG Tablet PO ×2 (07:32→16:59)
[2017-07-29] MEDS: HYDROCHLOROTHIAZIDE 12.5 MG CAPSULE PO (07:32)
[2017-07-29] MEDS: Famotidine 20 MG Tablet PO (07:32)
[2017-07-29] MEDS: Losartan Potassium 100 MG Tablet PO (07:32)
--- NOTE | 2017-07-29 10:49 | CASEMGMT ---
Team meeting held. Patient present as well as patient spouse. Collaborating with team and patient, discharge date has been set for 07/30/17. Patient plans to discharge home with spouse. Physical therapy recommending for patient to have continued therapy through outpatient therapy services. Patient is agreeable to recommendation and requesting for outpatient physical therapy to be set up through [facility]. Patient reporting to have all needed durable medical equipment already set up within the home. Patient spouse plans to provide transportation for patient at time of discharge. Support given. Telephone call to [facility]. Outpatient physical therapy appointment set up for 07/31/17 @ 2612. Patient agreeable to appointment time and date. Order faxed. Proposed discharge date: 07/30/17 PLAN: Discharge home with spouse and outpatient physical therapy. Alexandra ALONSO, CAR PARKER
--- NOTE | 2017-07-29 14:08 | PCM.PN.NEU ---
Subjective: Staffed in team meeting. Family at bedside. Questions answered. Patient is able to ambulate greater than 400 feet at stand by assist. she is stand by assist for transfers and bed mobility . She can go up and down 5 steps at stand by assist to contact guard. With Occupational therapy, She is supervised with personal care, she is able to shower and do personal care with no assistance. With Nursing no issues. Her BP was elevated and continued to trend upward was started on Norvasc over the weekend. Was made MOD I in anticipation of discharge on 07/30, does not require any equipment already has at home currently. Will schedule her for out patient Physical therapy, there is no need for Occupational therapy. - Physical Exam General: Alert, Oriented x3, Cooperative HEENT: Atraumatic, PERRLA, EOMI, Normocephalic Neck: Supple, No JVD, Negative Carotid Bruits Lungs: Clear to auscultation, Normal air movement Cardiovascular: Regular rate, No murmurs Abdomen: Bowel Sounds Present, Soft, Non Tender Extremities: No edema, Capillary Refill Less than 3 Seconds Skin: No rashes, No breakdown Musculoskeletal: No Tenderness to Palpation of Joints or Extremities Neurological: Cranial nerves II-XII grossly intact Psych/Mental Status: Normal Affect, Appropriate Vital Signs Temp Pulse Resp BP Pulse Ox 97.7 F L 90 17 163/83 H 93 07/29/17 07:25 07/29/17 07:25 07/29/17 07:25 07/29/17 07:25 07/29/17 07:25 Oxygen Delivery Method Room Air Weight: 99.8 kg Body Mass Index (BMI) 37.4 Intake and Output for Last 24 Hours 07/27/17 07/28/17 07/29/17 23:59 23:59 23:59 Intake Total 600 / 600 360 / 360 480 / 480 Balance 600 / 600 360 / 360 480 / 480 Active Medications Acetaminophen (Tylenol) 1,000 mg PO Q8 [facility] Last Admin: 07/29/17 13:26 Dose: 1,000 mg Al Hydroxide/Mg Hydroxide (Mylanta Ii) 30 ml PO Q6H PRN PRN PRN Reason: INDIGESTION Last Admin: 07/23/17 20:10 Dose: 30 ml Amlodipine Besylate (Norvasc) 5 mg PO DAILY [facility] Last Admin: 07/29/17 07:32 Dose: 5 mg [facility]) [facility] Last Admin: 07/29/17 07:32 Dose: 325 mg Calamine/Phenol (Calmoseptine Ointment) 1 applic TOPICAL TID [facility] PRN Reason: Protocol Last Admin: 07/29/17 13:27 Dose: 1 applicatio Famotidine (Pepcid) 20 mg PO DAILY [facility] Last Admin: 07/29/17 07:32 Dose: 20 mg Guaifenesin (Robitussin Dm) 10 ml PO Q6H PRN PRN PRN Reason: COUGH Last Admin: 07/24/17 15:24 Dose: 10 ml Hydrochlorothiazide (Hydrochlorothiazide) 12.5 mg PO DAILY [facility] Last Admin: 07/29/17 07:32 Dose: 12.5 mg Losartan Potassium (Cozaar) 100 mg PO DAILY [facility] Last Admin: 07/29/17 07:32 Dose: 100 mg Ondansetron HCl (Zofran Odt) 4 mg PO Q8H PRN PRN PRN Reason: NAUSEA/VOMITING Last Admin: 07/23/17 20:02 Dose: 4 mg Polyethylene Glycol (Miralax) 17 gm PO DAILY [facility] Last Admin: 07/29/17 07:33 Dose: Not Given Senna/Docusate Sodium (Senokot-S, Nancy-Colace) 2 tablet PO BID [facility] Last Admin: 07/29/17 07:33 Dose: Not Given Tramadol HCl (Ultram (G)) 50 mg PO Q6H PRN PRN PRN Reason: MODERATE PAIN (4-5/10) Last Admin: 07/29/17 07:35 Dose: 50 mg Assessment/Plan Debility status post Right Total Knee Replacement. Goal of rehab is taoism of prior level of functional independence. Plan: - Physical therapy for gait and balance - Occupational Therapy for ADLs - As needed analgesics => used judiciously because of ileus - Bowel protocol => Currently has diarrhea need to hold stool softeners - DVT prophylaxis: Lovenox, SCD's and Travis hose on the left leg - Hx of HTN -> continue home medications HCTZ and Cozaar - Incision Site -> C/D/I, will remove every other staple along the incision line on Saturday. - Skin tear right wilks from surgical drape -> Sutures removed and replaced with steri strips, covered with Mepilex dressing - Hx of Graves disease, no current treatment - Hx of Osteoarthritis - Hypokalemia 2/2 diarrhea => K+ was 3.2 will give 10meq KCl BID x 3 days and recheck on Saturday - Discharge on 07/30 with Outpatient Physical therapy
--- NOTE | 2017-07-29 14:14 | PN.NEURO_ITS ---
Subjective: Staffed in team meeting. Family at bedside. Questions answered. Patient is able to ambulate greater than 400 feet at stand by assist. she is stand by assist for transfers and bed mobility . She can go up and down 5 steps at stand by assist to contact guard. With Occupational therapy, She is supervised with personal care, she is able to shower and do personal care with no assistance. With Nursing no issues. Her BP was elevated and continued to trend upward was started on Norvasc over the weekend. Was made MOD I in anticipation of discharge on 07/30, does not require any equipment already has at home currently. Will schedule her for out patient Physical therapy, there is no need for Occupational therapy. - Physical Exam General: Alert, Oriented x3, Cooperative HEENT: Atraumatic, PERRLA, EOMI, Normocephalic Neck: Supple, No JVD, Negative Carotid Bruits Lungs: Clear to auscultation, Normal air movement Cardiovascular: Regular rate, No murmurs Abdomen: Bowel Sounds Present, Soft, Non Tender Extremities: No edema, Capillary Refill Less than 3 Seconds Skin: No rashes, No breakdown Musculoskeletal: No Tenderness to Palpation of Joints or Extremities Neurological: Cranial nerves II-XII grossly intact Psych/Mental Status: Normal Affect, Appropriate Vital Signs Temp Pulse Resp BP Pulse Ox 97.7 F L 90 17 163/83 H 93 07/29/17 07:25 07/29/17 07:25 07/29/17 07:25 07/29/17 07:25 07/29/17 07:25 Oxygen Delivery Method Room Air Weight: 99.8 kg Body Mass Index (BMI) 37.4 Intake and Output for Last 24 Hours 07/27/17 07/28/17 07/29/17 23:59 23:59 23:59 Intake Total 600 / 600 360 / 360 480 / 480 Balance 600 / 600 360 / 360 480 / 480 Active Medications Acetaminophen (Tylenol) 1,000 mg PO Q8 [facility] Last Admin: 07/29/17 13:26 Dose: 1,000 mg Al Hydroxide/Mg Hydroxide (Mylanta Ii) 30 ml PO Q6H PRN PRN PRN Reason: INDIGESTION Last Admin: 07/23/17 20:10 Dose: 30 ml Amlodipine Besylate (Norvasc) 5 mg PO DAILY [facility] Last Admin: 07/29/17 07:32 Dose: 5 [facility] Last Admin: 07/29/17 07:32 Dose: 325 mg Calamine/Phenol (Calmoseptine Ointment) 1 applic TOPICAL TID [facility] PRN Reason: Protocol Last Admin: 07/29/17 13:27 Dose: 1 applicatio Famotidine (Pepcid) 20 mg PO DAILY [facility] Last Admin: 07/29/17 07:32 Dose: 20 mg Guaifenesin (Robitussin Dm) 10 ml PO Q6H PRN PRN PRN Reason: COUGH Last Admin: 07/24/17 15:24 Dose: 10 ml Hydrochlorothiazide (Hydrochlorothiazide) 12.5 mg PO DAILY [facility] Last Admin: 07/29/17 07:32 Dose: 12.5 mg Losartan Potassium (Cozaar) 100 mg PO DAILY [facility] Last Admin: 07/29/17 07:32 Dose: 100 mg Ondansetron HCl (Zofran Odt) 4 mg PO Q8H PRN PRN PRN Reason: NAUSEA/VOMITING Last Admin: 07/23/17 20:02 Dose: 4 mg Polyethylene Glycol (Miralax) 17 gm PO DAILY [facility] Last Admin: 07/29/17 07:33 Dose: Not Given Senna/Docusate Sodium (Senokot-S, Nancy-Colace) 2 tablet PO BID [facility] Last Admin: 07/29/17 07:33 Dose: Not Given Tramadol HCl (Ultram (G)) 50 mg PO Q6H PRN PRN PRN Reason: MODERATE PAIN (4-5/10) Last Admin: 07/29/17 07:35 Dose: 50 mg Assessment/Plan Debility status post Right Total Knee Replacement. Goal of rehab is [employer] of prior level of functional independence. Plan: - Physical therapy for gait and balance - Occupational Therapy for ADLs - As needed analgesics => used judiciously because of ileus - Bowel protocol => Currently has diarrhea need to hold stool softeners - DVT prophylaxis: Lovenox, SCD's and Travis hose on the left leg - Hx of HTN -> continue home medications HCTZ and Cozaar - Incision Site -> C/D/I, will remove every other staple along the incision line on Saturday. - Skin tear right wilks from surgical drape -> Sutures removed and replaced with steri strips, covered with Mepilex dressing - Hx of Graves disease, no current treatment - Hx of Osteoarthritis - Hypokalemia 2/2 diarrhea => K+ was 3.2 will give 10meq KCl BID x 3 days and recheck on Saturday - Discharge on 07/30 with Outpatient Physical therapy
--- NOTE | 2017-07-29 15:22 | PN_ITS ---
Subjective: Seen and examined. Patient is able to walk more than 400 feet at standby assist. The wound has healed well. Sutures have been removed. Blood pressure is elevated. Denies cardiac disease. Vitals/I&O's: Vital Signs Temp Pulse Resp BP Pulse Ox 97.7 F L 90 17 163/83 H 93 07/29/17 07:25 07/29/17 07:25 07/29/17 07:25 07/29/17 07:25 07/29/17 07:25 Oxygen Delivery Method Room Air Weight: 220 lb 0.341 oz Body Mass Index (BMI) 37.4 Intake and Output for Last 24 Hours 07/27/17 07/28/17 07/29/17 23:59 23:59 23:59 Intake Total 600 / 600 360 / 360 480 / 480 Balance 600 / 600 360 / 360 480 / 480 General: Alert, Oriented x3, Cooperative HEENT: Atraumatic, PERRLA, EOMI, Normocephalic Neck: Supple, No JVD, Negative Carotid Bruits Lungs: Clear to auscultation, Normal air movement, No rhonchi, No wheeze, No rales Cardiovascular: Regular rate, No murmurs Abdomen: Bowel Sounds Present, Soft, Non Tender, Non-Distended Extremities: No edema, Capillary Refill Less than 3 Seconds Skin: No rashes, No breakdown Musculoskeletal: No Tenderness to Palpation of Joints or Extremities, Arthritic Changes, - - Status post right TKR. [place] have been removed. Neurological: Cranial nerves II-XII grossly intact, Neuro grossly intact Psych/Mental Status: Normal Affect, Appropriate Current Medications Acetaminophen (Tylenol) 1,000 mg PO Q8 [facility] Last Admin: 07/29/17 13:26 Dose: 1,000 mg Al Hydroxide/Mg Hydroxide (Mylanta Ii) 30 ml PO Q6H PRN PRN PRN Reason: INDIGESTION Last Admin: 07/23/17 20:10 Dose: 30 ml Amlodipine Besylate (Norvasc) 5 mg PO DAILY [facility] Last Admin: 07/29/17 07:32 Dose: 5 mg Aspirin (Aspirin) 325 mg PO BIDCM [facility] Last Admin: 07/29/17 07:32 Dose: 325 mg Calamine/Phenol (Calmoseptine Ointment) 1 applic TOPICAL TID [facility] PRN Reason: Protocol Last Admin: 07/29/17 13:27 Dose: 1 applicatio Famotidine (Pepcid) 20 mg PO DAILY [facility] Last Admin: 07/29/17 07:32 Dose: 20 mg Guaifenesin (Robitussin Dm) 10 ml PO Q6H PRN PRN PRN Reason: COUGH Last Admin: 07/24/17 15:24 Dose: 10 ml Hydrochlorothiazide (Hydrochlorothiazide) 12.5 mg PO DAILY [facility] Last Admin: 07/29/17 07:32 Dose: 12.5 mg Losartan Potassium (Cozaar) 100 mg PO DAILY [facility] Last Admin: 07/29/17 07:32 Dose: 100 mg Ondansetron HCl (Zofran Odt) 4 mg PO Q8H PRN PRN PRN Reason: NAUSEA/VOMITING Last Admin: 07/23/17 20:02 Dose: 4 mg Polyethylene Glycol (Miralax) 17 gm PO DAILY [facility] Last Admin: 07/29/17 07:33 Dose: Not Given Senna/Docusate Sodium (Senokot-S, Nancy-Colace) 2 tablet PO BID [facility] Last Admin: 07/29/17 07:33 Dose: Not Given Tramadol HCl (Ultram (G)) 50 mg PO Q6H PRN PRN PRN Reason: MODERATE PAIN (4-5/10) Last Admin: 07/29/17 07:35 Dose: 50 mg Assessment/Plan 72 y/o F with PMHx of hypertension, obesity, OA, Hypothyroidism, admitted to the acute rehab after a brief hospital stay for post-operative ileus which was managed conservatively. She also had right hip replaced and left shoulder reverse arthroplasty in the past. 1. Acute debility related to right TKR on the rehab. Scheduled for discharge tomorrow. 2. Post-op ileus, resolved, no bowel issues 3. s/p Right total knee replacement on 07/15/2017, pain is controlled. 4. Hypertension, uncontrolled, on Losartan and HCTZ, Losartan recently increased to 100mg po daily, started on amlodipine 5 mg daily. Patient is on HCTZ 12.5 mg which is increased to 25 mg daily. Blood pressure is elevated. Blood pressure ranged from 167/83-150/63. 5. Hypokalemia,resolved 6. Hx Graves Disease, needs to follow-up in the outpatient with tax collector, 7. Sinus arrhythmia, follow-up with cardiology in the outpatient. 8. Obesity, weight loss and lifestyle changes encouraged. 9. GERD, on famotidine 10. DVT Prophylaxis with SCDs, lovenox. Code Visit Inpatient E&M: 87907 Subs Hosp L2
--- NOTE | 2017-07-29 15:59 | PCM.RU.DC ---
Rehab Discharge Summary DATE OF ADMISSION: 07/17/17 DATE OF DISCHARGE: 07/30/17 Discharge Diet: No Restrictions Discharge Activity: May Not Drive, May not drive while taking narcotic pain medications., May Shower, Use Walker, - - Do not soak in a Tub Bath, until cleared by Surgeon Weight Bearing Status: Weight bearing as tolerated Call your doctor if your incision/area has: Increased Pain/ Swelling, Increased Redness, Swelling at the incision site Call your doctor if you observe: Fever of 101 or Higher, Coldness, Increased Pain, Numbness or Tingling, Change in Color, Inability to urinate, Inability to have a bowel movement, Using more than one pad per hour, Shortness of breath, Dizziness, Fainting spells, Swelling in the ankles, Chest pain, Prolonged hiccoughing, Increased palpitations (irregular heartbeat), Calf discomfort, Uncontrolled pain Home Medications: Medications to take at Discharge Acetaminophen [Tylenol] 1,000 mg PO Q8 tablet 07/29/17 Amlodipine [Norvasc] 5 mg PO DAILY #30 tablet 07/29/17 Aspirin 325 mg PO BIDCM tablet 07/29/17 Famotidine [Pepcid] 20 mg PO DAILY #30 tablet 07/29/17 Hydrochlorothiazide [Hctz] 25 mg PO DAILY #30 tablet 07/29/17 Losartan Potassium [Cozaar] 100 mg PO DAILY #30 tablet 07/29/17 TraMADol [Ultram] 50 mg PO Q6H PRN PRN #21 tab 07/29/17 Following Prescrptions Were Given to Patient: TraMADol [Ultram] 50 mg PO Q6H PRN PRN #21 tab PRN Reason: Moderate Pain (4-5/10) Amlodipine [Norvasc] 5 mg PO DAILY #30 tablet Famotidine [Pepcid] 20 mg PO DAILY #30 tablet Hydrochlorothiazide [Hctz] 25 mg PO DAILY #30 tablet Losartan Potassium [Cozaar] 100 mg PO DAILY #30 tablet Primary Care Physician: Shoaib Begum DO [Primary Care Provider] - Please Follow Up With: Lex Granado PA-C Please Follow Up With: Shoaib Begum DO Please Follow Up With: [facility] - Outpatient Physical Therapy Disposition: Home Patient Condition:: Good Rehab Course The patient is a 72 year old Female, admitted to the rehabilitation unit for rehab S/P Right Total Knee Replacement. She has a past medical history of HTN, Graves disease and Osteoarthritis. This was an elective surgery, the patient had attempted several other therapies with no success. She lives in a one story ranch with her , she has 3 steps to get into her home. She was doing all her own ADLs and was independent in her care. She was previously completely functionally independent and is admitted to the rehab unit in order to restore her previous level of functional independence.Patient is able to ambulate greater than 400 feet at stand by assist. she is stand by assist for transfers and bed mobility . She can go up and down 5 steps at stand by assist to contact guard. With Occupational therapy, She is supervised with personal care, she is able to shower and do personal care with no assistance. With Nursing no issues. Her BP was elevated and continued to trend upward was started on Norvasc over the weekend. Was made MOD I in anticipation of discharge on 07/30, does not require any equipment already has at home currently. Will schedule her for out patient Physical therapy, there is no need for Occupational therapy. Meaningful Use Info Meaningful Use Diagnoses (Choose all that apply): None applicable
[2017-07-29 16:01] VITALS: BP 131/60; PULSE 94
--- NOTE | 2017-07-29 16:36 | PCM.DC ---
- Discharge Diagnoses Reason(s) for Visit for Discharge Instructions: RTK You will use the following diet at home:: Regular Your food should be the consistency of: Regular Your liquids should be the consistency of: Regular/Thin Discharge Activity: May Not Drive, May not drive while taking narcotic pain medications., May Shower, Use Walker, - - Do not soak in a Tub Bath, until cleared by Surgeon Weight Bearing Status: Weight bearing as tolerated Call your doctor if your incision/area has: Increased Pain/ Swelling, Increased Redness, Swelling at the incision site Call your doctor if you observe: Fever of 101 or Higher, Coldness, Increased Pain, Numbness or Tingling, Change in Color, Inability to urinate, Inability to have a bowel movement, Using more than one pad per hour, Shortness of breath, Dizziness, Fainting spells, Swelling in the ankles, Chest pain, Prolonged hiccoughing, Increased palpitations (irregular heartbeat), Calf discomfort, Uncontrolled pain Allergies/Adverse Reactions: Allergies adhesive Adverse Reaction (Verified 06/11/17 13:09) Other levofloxacin [From Levaquin] Adverse Reaction (Verified 06/11/17 13:09) Other JITTERY, UNABLE TO SLEEP FOR 2 DAYS lisinopril Adverse Reaction (Verified 06/11/17 13:09) Other COUGHING Medications to take at Discharge Acetaminophen [Tylenol] 1,000 mg PO Q8 tablet 07/29/17 Amlodipine [Norvasc] 5 mg PO DAILY #30 tablet 07/29/17 Aspirin 325 mg PO BIDCM tablet 07/29/17 Famotidine [Pepcid] 20 mg PO DAILY #30 tablet 07/29/17 Hydrochlorothiazide [Hctz] 25 mg PO DAILY #30 tablet 07/29/17 Losartan Potassium [Cozaar] 100 mg PO DAILY #30 tablet 07/29/17 TraMADol [Ultram] 50 mg PO Q6H PRN PRN #21 tab 07/29/17 The following prescriptions were given: TraMADol [Ultram] 50 mg PO Q6H PRN PRN #21 tab PRN Reason: Moderate Pain (4-5/10) Amlodipine [Norvasc] 5 mg PO DAILY #30 tablet Famotidine [Pepcid] 20 mg PO DAILY #30 tablet Hydrochlorothiazide [Hctz] 25 mg PO DAILY #30 tablet Losartan Potassium [Cozaar] 100 mg PO DAILY #30 tablet Primary Care Physician: Shoaib Begum DO [Primary Care Provider] - Please Follow Up With: Lex Granado PA-C Please Follow Up With: Shoaib Begum DO Please Follow Up With: [facility] - Outpatient Physical Therapy Proposed Discharge Date: 07/30/17
[2017-07-29 20:10] VITALS: PULSE 96; RESP 16; O2SAT 96
--- NOTE | 2017-07-30 02:54 | NURSING ---
Reviewed and agree with PN documentation.
[2017-07-30] MEDS: Acetaminophen 500 MG Tablet 1000 MG PO (05:15)
--- NOTE | 2017-07-30 05:18 | NURSING ---
pt reports have severe pain in her rt leg from hip down to the foot . pt medicated with tramadol at 0215 am. pt given routine tylenol es at this time. polar care placed on at 0230 to help with pain discomfort. pt states that her pain is still an 8/10 on the pain scale and requested to rest in the bed until later. will continue to monitor, rn made aware.
[2017-07-30 07:54] VITALS: BP 164/81; PULSE 91; RESP 18; TEMP 36.8; O2SAT 91
[2017-07-30] MEDS: Aspirin 325 MG Tablet PO (09:14)
[2017-07-30] MEDS: amLODIPine 5 MG Tablet PO (09:14)
[2017-07-30] MEDS: hydroCHLOROthiazide 25 MG Tablet PO (09:14)
[2017-07-30] MEDS: Losartan Potassium 100 MG Tablet PO (09:14)
[2017-07-30] MEDS: Famotidine 20 MG Tablet PO (09:14)
[2017-07-30 09:22] VITALS: BP 164/81; PULSE 91; RESP 18; TEMP 36.8; O2SAT 91
--- NOTE | 2017-07-30 11:49 | NURSING ---
Went over dc instructions, mediations and appts. pt verbalized understanding, pt in stable condition.
== END 2017-07-30 13:42 | disposition home or self-care (01) | DRG 560 ==
PROVIDERS: Family Medicine; Internal Medicine; Nurse Practitioner Acute Care; Admitting Provider Psychiatry & Neurology Neurology; Family Provider Family Medicine; PCP Family Medicine; Visit Provider Internal Medicine
DX: Z47.1 Aftercare following joint replacement surgery (principal); K56.7 Ileus, unspecified; E05.00 Thyrotoxicosis with diffuse goiter without thyrotoxic crisis or storm; I10 Essential (primary) hypertension; Z96.651 Presence of right artificial knee joint; E66.9 Obesity, unspecified; Z68.37 Body mass index [BMI] 37.0-37.9, adult; Z71.3 Dietary counseling and surveillance; Z79.899 Other long term (current) drug therapy; Z79.82 Long term (current) use of aspirin; I49.9 Cardiac arrhythmia, unspecified; R11.2 Nausea with vomiting, unspecified
CPT/HCPCS: 36415; 74018; 80048; 80053; 83690; 83735; 84100; 84439; 84443; 84481; 84484; 85025; 85027; 87631; 97110; 97116; 97162; 97166; 97530; 97535; 97802; J7030; A4216; J2405

== ENCOUNTER 2017-07-21 17:15 | Inpatient (IN) | payer MEDICARE, OTHER, SELFPAY ==
[2017-07-16 17:56] VITALS: BP 156/89
[2017-07-17 16:30] VITALS: BMI 37.4
[2017-07-21 16:48] VITALS: BP 151/73
--- NOTE | 2017-07-21 16:55 | PCM.HP.STD ---
Problem List (1) Ileus Status: Acute (2) Obesity (BMI 30-39.9) Status: Chronic (3) Benign essential hypertension Status: Chronic (4) Hypothyroidism Status: Chronic Qualifiers: Hypothyroidism type: unspecified (5) Osteoarthritis Status: Chronic Qualifiers: Osteoarthritis location: unspecified site (6) Sinus arrhythmia Status: Chronic History of Present Illness Date of Admission: 07/21/17 Chief Complaint: Intractable nausea, emesis, ileus versus pSBO The patient is a 72 y/o F w/ PMHx: HTN, Obesity, OA, Hypothyroidism, Sinus arrhythmia following with Dr. Wheat who was recently transitioned to the [facility] on 07/18/17 for continued PT, OT following R TKR by Dr. Zaki Pickett on 07/15/17 with unfortunately onset intractable nausea and emesis with abdominal distention postoperatively. Post-operatively while in acute rehabilitation she had onset of nausea and abdominal distention. She continued to have flatus and BM despite these symptoms. KUB was obtained on 07/19/17 w/ noted slightly distended gas filled small bowel loops in the left upper quadrant and left mid abdomen with gas and fecal material seen in the colon with mild gaseous distention of the stomach. Patient at that time was treated with bowel regimen, enema and as needed antiemetics w/ encouraged activity to assist with bowel function. Repeat KUB was obtained on 07/21/17 and appearance was improved from prior however patient continued to have nausea and recurrent emesis. Films were reviewed w/ Surgery who agreed that they appeared improved; however, given intractable nausea and recurrent emesis decision to transition patient back to [place] with NGT placement. Past Medical History Past Medical History (Chronic Problems): Chronic Problems Benign essential hypertension (Chronic) Osteoarthritis (Chronic) Obesity (BMI 30-39.9) (Chronic) Hypothyroidism (Chronic) Sinus arrhythmia (Chronic) Allergies adhesive Adverse Reaction (Verified 06/11/17 13:09) Other levofloxacin [From Levaquin] Adverse Reaction (Verified 06/11/17 13:09) Other JITTERY, UNABLE TO SLEEP FOR 2 DAYS lisinopril Adverse Reaction (Verified 06/11/17 13:09) Other COUGHING Home Medications: Ambulatory Orders Medication Instructions Recorded Losartan/Hydrochlorothiazide 1 each PO DAILY 07/17/16 [Losartan-Hctz 50-12.5 mg Tab] Acetaminophen [Tylenol] 1,000 mg PO Q8 07/17/17 Aspirin 325 mg PO BIDCM 07/17/17 Scopolamine Patch 1mg/72hr 1 patch TD Q3D 07/17/17 [Transderm-Scop] TraMADol [Ultram (G)] 50 mg PO Q6H PRN PRN 7 Days #60 tab 07/17/17 Surgical History: - - Recent R TKR, appendectomy, cholecystectomy, hysterectomy, prior left shoulder hemiarthroplasty w/ revision, right hip replacement, loop recorder, tonsillectomy. 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 Denies: Chills, Fever, Weight Change HEENT: Denies: Head Aches, Sinus Congestion, Sinus Drainage Cardiovascular: Denies: Chest Pain, Palpitations Respiratory: Denies: Cough, Shortness of breath at rest, Sputum production Gastrointestinal: Reports: Abdominal Pain, Constipation, Nausea, Vomiting Genitourinary: Denies: Dysuria Musculoskeletal: Reports: Joint stiffness, Joint swelling, Joint Tenderness, Leg Pain. Denies: Joint Pain Skin: Denies: Rash, Wounds Neurological: Denies: Numbness, Tingling, Focal weakness Psychiatric: Denies: Anxiety, Depression, Homicidal Ideations, Suicidal Ideations Hematologic/ Lymphatic: Denies: Easy Bruising, Easy Bleeding VTE Information - Inpt Only VTE Present on Admission: No VTE Mechan Device Prophylaxis: SCD's VTE Pharm Prophylaxis ordered?: Yes Patient Problems: Active and Suspected Problems Ileus (Acute) Subjective: Seated upright in bed, fatigued appearance, NAD, recent emesis. Objective: Physical Examination: General: awake, alert, oriented x 3 and cooperative, seated upright in bedside chair, fatigued, in no apparent distress. Skin: normal color, turgor, no icterus, cyanosis, s/p R TKR. HEENT: AT/NC, EOMI, PERRLA, dry MM, no carotid bruits or JVD noted. Lungs: CTA bilaterally, moderate effort, moderate decrease BL bases, no rales, ronchi or wheezing. Heart: Regular rate and rhythm; no gallop, rub audible. Abdomen: soft, obese, mild TTP LUQ, improved since last examination, still moderately distended but soft and decreased, hypoactive BS primarily BL UQ, habitus and distention make examination difficult to assess HSM. Extremities: no cyanosis, clubbing, or edema. Neurological: patient awake, alert, oriented x 3; cognitive function intact; pupils equally reactive to light and accomodation; cranial nerves II-XII grossly normal, moving all 4 extremities except expected limitations given recent R TKR and prior remote operative interventions to LUE, additionally nausea with increased movement, strength accordingly moderately to severely globally decreased. Psychiatric: affect appears fatigued, no acute evidence of depressive or anxiety feelings. - Physical Exam Vital Signs BP 151/73 H 07/21/17 16:48 Body Mass Index (BMI) 37.4 Assessment/Plan Active and Suspected Problems Ileus (Acute) The patient is a 72 y/o F w/ PMHx: HTN, Obesity, OA, Hypothyroidism, Sinus arrhythmia following with Dr. Wheat who was recently transitioned to the [facility] on 07/18/17 for continued PT, OT following R TKR by Dr. Zaki Pickett on 07/15/17 with unfortunately onset intractable nausea and emesis with abdominal distention postoperatively. (1) Abdominal pain, nausea, emesis w/ Ileus versus early SBO: Will admit to [place], maintain on IVFs, place and continue NGT to suction, strict I&Os, IV pain/anti-emetics PRN, serial KUB as needed to montior bowel function, Famotidine IV, maintain NPO on bowel rest. General surgery consulted and will evaluate in AM. Discussed case with them and they reviewed recent KUB. (2) Severe OA, R Knee Osteoarthritis: 07/15/[address] Pickett, maintain on PRN IV pain regimen, continue PT, OT therapies, maintain on chemoprophylaxis. Updated Dr. Pickett. (3) Hx Graves Disease: Recent TSH 0.67 normal level, FT4 1.55 very mildly elevated, T3 level 2.6 normal level obtained. Encourage continued routine follow-up with her Physician Gynecologist. (4) Sinus arrhythmia: Falling outpatient with Dr. Wheat, tony. (5) Obesity: Weight loss and lifestyle changes encouraged. (6) GERD: IV Famotidine. (7) HTN: Holding oral regimen, PRN Hydralazine. (8) DVT Prophylaxis: SCDs, lovenox. Code Visit Inpatient E&M: 56969 Init Hosp L3
--- NOTE | 2017-07-21 17:05 | HP.PCM_ITS ---
Problem List (1) Ileus Status: Acute (2) Obesity (BMI 30-39.9) Status: Chronic (3) Benign essential hypertension Status: Chronic (4) Hypothyroidism Status: Chronic Qualifiers: Hypothyroidism type: unspecified (5) Osteoarthritis Status: Chronic Qualifiers: Osteoarthritis location: unspecified site (6) Sinus arrhythmia Status: Chronic History of Present Illness Date of Admission: 07/21/17 Chief Complaint: Intractable nausea, emesis, ileus versus pSBO The patient is a 72 y/o F w/ PMHx: HTN, Obesity, OA, Hypothyroidism, Sinus arrhythmia following with Dr. Wheat who was recently transitioned to the [facility] on 07/18/17 for continued PT, OT following R TKR by Dr. Zaki Pickett on 07/15/17 with unfortunately onset intractable nausea and emesis with abdominal distention postoperatively. Post-operatively while in acute rehabilitation she had onset of nausea and abdominal distention. She continued to have flatus and BM despite these symptoms. KUB was obtained on 07/19/17 w/ noted slightly distended gas filled small bowel loops in the left upper quadrant and left mid abdomen with gas and fecal material seen in the colon with mild gaseous distention of the stomach. Patient at that time was treated with bowel regimen, enema and as needed antiemetics w/ encouraged activity to assist with bowel function. Repeat KUB was obtained on 07/21/17 and appearance was improved from prior however patient continued to have nausea and recurrent emesis. Films were reviewed w/ Surgery who agreed that they appeared improved; however, given intractable nausea and recurrent emesis decision to transition patient back to [place] with NGT placement. Past Medical History Past Medical History (Chronic Problems): Chronic Problems Benign essential hypertension (Chronic) Osteoarthritis (Chronic) Obesity (BMI 30-39.9) (Chronic) Hypothyroidism (Chronic) Sinus arrhythmia (Chronic) Allergies adhesive Adverse Reaction (Verified 06/11/17 13:09) Other levofloxacin [From Levaquin] Adverse Reaction (Verified 06/11/17 13:09) Other JITTERY, UNABLE TO SLEEP FOR 2 DAYS lisinopril Adverse Reaction (Verified 06/11/17 13:09) Other COUGHING Home Medications: Ambulatory Orders Medication Instructions Recorded Losartan/Hydrochlorothiazide 1 each PO DAILY 07/17/16 [Losartan-Hctz 50-12.5 mg Tab] Acetaminophen [Tylenol] 1,000 mg PO Q8 07/17/17 Aspirin 325 mg PO BIDCM 07/17/17 Scopolamine Patch 1mg/72hr 1 patch TD Q3D 07/17/17 [Transderm-Scop] TraMADol [Ultram (G)] 50 mg PO Q6H PRN PRN 7 Days #60 tab 07/17/17 Surgical History: - - Recent R TKR, appendectomy, cholecystectomy, hysterectomy , prior left shoulder hemiarthroplasty w/ revision, right hip replacement, loop recorder, tonsillectomy. Psychiatric History: No pertinent psych hx CATALOG SPECIALIST History: No pertinent CATALOG SPECIALIST history Lives: Spouse/ Significant Other Smoking Status: Never smoker Tobacco Use: Non-smoker Alcohol: Occasional Drugs: None - *Family History Paternal History Items: Diabetes, Hypertension Maternal History Items: Hypertension Review of Systems Constitutional: Reports: Anorexia, Malaise, Weakness, Fatigue. Denies: Chills, Fever, Weight Change HEENT: Denies: Head Aches, Sinus Congestion, Sinus Drainage Cardiovascular: Denies: Chest Pain, Palpitations Respiratory: Denies: Cough, Shortness of breath at rest, Sputum production Gastrointestinal: Reports: Abdominal Pain, Constipation, Nausea, Vomiting Genitourinary: Denies: Dysuria Musculoskeletal: Reports: Joint stiffness, Joint swelling, Joint Tenderness, Leg Pain. Denies: Joint Pain Skin: Denies: Rash, Wounds Neurological: Denies: Numbness, Tingling, Focal weakness Psychiatric: Denies: Anxiety, Depression, Homicidal Ideations, Suicidal Ideations Hematologic/ Lymphatic: Denies: Easy Bruising, Easy Bleeding VTE Information - Inpt Only VTE Present on Admission: No VTE Mechan Device Prophylaxis: SCD's VTE Pharm Prophylaxis ordered?: Yes Patient Problems: Active and Suspected Problems Ileus (Acute) Subjective: Seated upright in bed, fatigued appearance, NAD, recent emesis. Objective: Physical Examination: General: awake, alert, oriented x 3 and cooperative, seated upright in bedside chair, fatigued, in no apparent distress. Skin: normal color, turgor, no icterus, cyanosis, s/p R TKR. HEENT: AT/NC, EOMI, PERRLA, dry MM, no carotid bruits or JVD noted. Lungs: CTA bilaterally, moderate effort, moderate decrease BL bases, no rales, ronchi or wheezing. Heart: Regular rate and rhythm; no gallop, rub audible. Abdomen: soft, obese, mild TTP LUQ, improved since last examination, still moderately distended but soft and decreased, hypoactive BS primarily BL UQ, habitus and distention make examination difficult to assess HSM. Extremities: no cyanosis, clubbing, or edema. Neurological: patient awake, alert, oriented x 3; cognitive function intact; pupils equally reactive to light and accomodation; cranial nerves II-XII grossly normal, moving all 4 extremities except expected limitations given recent R TKR and prior remote operative interventions to LUE, additionally nausea with increased movement, strength accordingly moderately to severely globally decreased. Psychiatric: affect appears fatigued, no acute evidence of depressive or anxiety feelings. - Physical Exam Vital Signs BP 151/73 H 07/21/17 16:48 Body Mass Index (BMI) 37.4 Assessment/Plan Active and Suspected Problems Ileus (Acute) The patient is a 72 y/o F w/ PMHx: HTN, Obesity, OA, Hypothyroidism, Sinus arrhythmia following with Dr. Wheat who was recently transitioned to the [facility] on 07/18/17 for continued PT, OT following R TKR by Dr. Zaki Pickett on 07/15/17 with unfortunately onset intractable nausea and emesis with abdominal distention postoperatively. (1) Abdominal pain, nausea, emesis w/ Ileus versus early SBO: Will admit to [place], maintain on IVFs, place and continue NGT to suction, strict I&Os, IV pain/anti- emetics PRN, serial KUB as needed to montior bowel function, Famotidine IV, maintain NPO on bowel rest. General surgery consulted and will evaluate in AM. Discussed case with them and they reviewed recent KUB. (2) Severe OA, R Knee Osteoarthritis: 07/15/[address] Pickett, maintain on PRN IV pain regimen, continue PT, OT therapies, maintain on chemoprophylaxis. Updated Dr. Pickett. (3) Hx Graves Disease: Recent TSH 0.67 normal level, FT4 1.55 very mildly elevated, T3 level 2.6 normal level obtained. Encourage continued routine follow -up with her Sewage Plant Attendant. (4) Sinus arrhythmia: Falling outpatient with Dr. Wheat, tony. (5) Obesity: Weight loss and lifestyle changes encouraged. (6) GERD: IV Famotidine. (7) HTN: Holding oral regimen, PRN Hydralazine. (8) DVT Prophylaxis: SCDs, lovenox. Code Visit Inpatient E&M: 23941 Init Hosp L3
[2017-07-21 17:07] VITALS: PULSE 68; BMI 35.9; BMI 36.0
[2017-07-21 17:10] VITALS: BP 156/77; PULSE 78; RESP 16; TEMP 36.6; O2SAT 99
[2017-07-21] MEDS: 0.9% Normal Saline 1,000 ML 125 ML IV ×2 (17:54→22:33)
--- NOTE | 2017-07-21 18:40 | RAD_ITS ---
STUDY: X-RAY - ABDOMEN/PELVIS REASON FOR EXAM: Female, 72 years old. Nasogastric tube placement. TECHNIQUE: Single AP view of the abdomen / pelvis. COMPARISON: Radiographs of the abdomen dated July 21, 2017. FINDINGS: Normal visualized lung bases. There is an unremarkable bowel gas pattern. Enteric tube tip is visible within the left upper quadrant, probably within the abdomen. Loop recorder is visible. There is no obvious organomegaly, mass or dilated bowel. Normal soft tissue structures. Patient has had a left-sided shoulder arthroplasty. RAD/Abdomen Single View IMPRESSION: Enteric tube tip is in the left upper quadrant. Electronically Signed: Arlin Case MD at 19:40 EST , Service support ,
[2017-07-21 19:00] VITALS: O2SAT 95
[2017-07-21 20:35] VITALS: BP 145/59; PULSE 77; RESP 17; RESP 18; TEMP 36; O2SAT 100
[2017-07-21] MEDS: Ondansetron 4 MG/2 ML Vial IV (21:03)
[2017-07-22 02:08] VITALS: BP 141/70; PULSE 77; RESP 17; TEMP 36.4; O2SAT 98
[2017-07-22 06:23] LABS: Absolute Neutrophil Count 5.3 X10^3/uL (2.0-7.7); Basophil# 0.01 X10^3/uL; Basophil% 0.1 % (0-1); Eosinophil# 0.08 X10^3/uL; Hematocrit 39.3 % (37-47); Hemoglobin 12.4 g/dl (12.0-15.0); Lymphocyte % 20.6 % (19-41); Mean Corp Hgb Conc 31.6 g/gl (32-36); Mean Corpuscular Hgb 30.6 pg (27.0-32.0); Mean Platelet Vol. 9.5 fl (6.2-12.0); Monocyte# 0.79 X10^3/uL; Monocyte% 10.2 % (0-10); Neutrophil # 5.28 X10^3/uL (2.7-7.7); Neutrophil % 67.8 % (47-70); Platelet Count 220 K/mm3 (150-450); RBC Distribution Width CV 13.5 % (11.6-14.6); RBC Distribution Width SD 47.9 fl (35.1-43.9); Red Blood Count 4.05 M/mm3 (4.2-5.4); White Blood Count 7.8 K/mm3 (4.4-11.0)
[2017-07-22 06:25] LABS: Anion Gap 7 (5-15); BUN 13 mg/dL (7-18); BUN/Creat Ratio 22.4 RATIO (10-20); Calcium,Total 8.5 mg/dL (8.5-10.1); Chloride 109 mmol/L (98-107); Creatinine, Serum 0.58 mg/dL (0.55-1.02); EST Glomerular Filtration Rate 109 mL/min (>60); Est Glom Filt Rate - Afr Amer 132 mL/min (>60); Glucose 70 mg/dL (74-106); Potassium 3.7 mmol/L (3.5-5.1); Sodium Level 140 mmol/L (136-145)
--- NOTE | 2017-07-22 06:35 | RAD_ITS ---
STUDY: X-RAY - ABDOMEN/PELVIS REASON FOR EXAM: Female, 72 years old. History of small bowel obstruction. TECHNIQUE: Upright views were obtained. COMPARISON: Comparison is made with prior study dated July 21, 2017. FINDINGS: A nasogastric tube is seen with the tip in the body of the stomach. A battery pack is seen overlying the left upper quadrant. Mild increased markings at the left lung base suggestive of atelectasis and/or scarring. There is an unremarkable bowel gas pattern. There is no demonstrated free abdominal air. The patient is status post cholecystectomy. Normal soft tissue structures. There are diffuse degenerative changes of the visualized lumbar spine. Prior right total hip replacement. RAD/Abd Decub and/or Erect(Portabl IMPRESSION: Nonspecific bowel gas pattern. Electronically Signed: Jamal Gonzalez MD at 8:34 EST Tel [phone], Service support ,
[2017-07-22 06:40] LABS: POSITIVE COUNT NO; POSITIVE DIFFERENTIAL NO; POSITIVE MORPHOLOGY NO
--- NOTE | 2017-07-22 07:16 | PCM.CONS.GEN ---
Reason for Consult Date of Consultation: 07/22/17 History of Present Illness: The patient is a 72 year old F admitted from rehab after right total knee due to nausea/vomiting for a possible ileus versus partial small bowel obstruction. Patient did have an NG placed last night which immediately put out 500 has put out over a liter including the initial. Patient denies any history of previous bowel obstruction in the past. She states that after surgery on Saturday she did not have a bowel movement and was vomiting about twice a day. And that continued however on she was having flatus and bowel movement she has had that every day but she still had recurrent emesis. Patient denies any abdominal pain. Her last colonoscopy was 1-2 years ago and they found a couple polyps. Past Medical History Past Medical History (Chronic Problems): Chronic Problems Sinus arrhythmia (Chronic) Hypothyroidism (Chronic) Obesity (BMI 30-39.9) (Chronic) Osteoarthritis (Chronic) Benign essential hypertension (Chronic) Allergies adhesive Adverse Reaction (Verified 06/11/17 13:09) Other levofloxacin [From Levaquin] Adverse Reaction (Verified 06/11/17 13:09) Other JITTERY, UNABLE TO SLEEP FOR 2 DAYS lisinopril Adverse Reaction (Verified 06/11/17 13:09) Other COUGHING Home Medications: Ambulatory Orders Medication Instructions Recorded Losartan/Hydrochlorothiazide 1 each PO DAILY 07/17/16 [Losartan-Hctz 50-12.5 mg Tab] Acetaminophen [Tylenol] 1,000 mg PO Q8 07/17/17 Aspirin 325 mg PO BIDCM 07/17/17 Scopolamine Patch 1mg/72hr 1 patch TD Q3D 07/17/17 [Transderm-Scop] TraMADol [Ultram] 50 mg PO Q6H PRN PRN 7 Days #60 tab 07/17/17 Surgical History: - - Recent R TKR, appendectomy, cholecystectomy, hysterectomy, prior left shoulder hemiarthroplasty w/ revision, right hip replacement, loop recorder, tonsillectomy. 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 Lives: Spouse/ Significant Other Smoking Status: Never smoker Tobacco Use: Non-smoker Alcohol: Occasional Drugs: None - *Family History Paternal History Items: Diabetes, Hypertension Maternal History Items: Hypertension Review of Systems Constitutional: Denies: Chills, Fever Eyes: Denies: Blurred vision HEENT: Denies: Difficulty Swallowing Cardiovascular: Denies: Chest Pain Respiratory: Denies: Shortness of breath at rest Gastrointestinal: Denies: Abdominal Pain, Nausea - currently, Vomiting - currently Genitourinary: Denies: Dysuria Skin: Denies: Rash Neurological: Denies: Blurred vision Psychiatric: Denies: Anxiety, Depression Hematologic/ Lymphatic: Reports: Easy Bruising - Physical Exam General: Alert, Oriented x3, Cooperative, No apparent distress HEENT: - - NG in place Lungs: Normal air movement Cardiovascular: Regular rate, Regular Rhythm Abdomen: Soft, Non Tender, Non-Distended, Passing Flatus, - - well healed R subcostal and Pfannenstiel incision, no guarding or rebound Vital Signs Temp Pulse Resp BP Pulse Ox 97.6 F L 77 17 141/70 H 98 07/22/17 02:08 07/22/17 02:08 07/22/17 02:08 07/22/17 02:08 07/22/17 02:08 Oxygen Delivery Method Room Air Weight: 209 lb 10.554 oz Body Mass Index (BMI) 35.9 Intake and Output for Last 24 Hours 07/20/17 07/21/17 07/22/17 23:59 23:59 23:59 Intake Total 680 / 680 1573 / 1573 Output Total 1900 / 1900 Balance 680 / 680 -327 / -327 Laboratory Tests Past 24 Hrs 07/22/17 07/22/17 05:35 05:35 WBC 7.8 RBC 4.05 L Hgb 12.4 Hct 39.3 MCV 97.0 MCH 30.6 MCHC 31.6 L RDW 13.5 RDW Differential 47.9 H Plt Count 220 MPV 9.5 Immature Gran % (Auto) 0.300 Neut % (Auto) 67.8 Lymph % (Auto) 20.6 [place] % (Auto) 10.2 H Eos % (Auto) 1.0 Baso % (Auto) 0.1 Absolute Neuts (auto) 5.3 Absolute Lymphs (auto) 1.60 Total Counted Not Reportable Sodium 140 Potassium 3.7 Chloride 109 H Carbon Dioxide 24.0 Anion Gap 7 BUN 13 Creatinine 0.58 Estim Creat Clear Calc 45.20 Est GFR (MDRD) Af Amer 132 Est GFR (MDRD) Non-Af 109 BUN/Creatinine Ratio 22.4 H Glucose 70 L Calcium 8.5 Assessment/Plan 72-year-old female status post right total knee on 07/15/17 with nausea/vomiting, ileus versus partial small bowel obstruction 1. Continue conservative management with NG n.p.o. IV fluids. Patient's put out over a liter from the NG since insertion last night. We will plan for CT abdomen pelvis with IV and p.o. contrast-Gastrografin for better evaluation of her small bowel and colon. Currently patient denies any nausea/vomiting or abdominal pain. And is having small amount of flatus and had a bowel movement daily since . Beatriz Wallace M.D. Pager: [phone] [facility] [address] [place] [address], [address] [place] [id number] Office: [phone] Code Visit Inpatient E&M: 65703 Init Hosp L1
--- NOTE | 2017-07-22 07:19 | CON.PCM_ITS ---
Reason for Consult Date of Consultation: 07/22/17 History of Present Illness: The patient is a 72 year old F admitted from rehab after right total knee due to nausea/vomiting for a possible ileus versus partial small bowel obstruction. Patient did have an NG placed last night which immediately put out 500 has put out over a liter including the initial. Patient denies any history of previous bowel obstruction in the past. She states that after surgery on Saturday she did not have a bowel movement and was vomiting about twice a day. And that continued however on she was having flatus and bowel movement she has had that every day but she still had recurrent emesis. Patient denies any abdominal pain. Her last colonoscopy was 1-2 years ago and they found a couple polyps. Past Medical History Past Medical History (Chronic Problems): Chronic Problems Sinus arrhythmia (Chronic) Hypothyroidism (Chronic) Obesity (BMI 30-39.9) (Chronic) Osteoarthritis (Chronic) Benign essential hypertension (Chronic) Allergies adhesive Adverse Reaction (Verified 06/11/17 13:09) Other levofloxacin [From Levaquin] Adverse Reaction (Verified 06/11/17 13:09) Other JITTERY, UNABLE TO SLEEP FOR 2 DAYS lisinopril Adverse Reaction (Verified 06/11/17 13:09) Other COUGHING Home Medications: Ambulatory Orders Medication Instructions Recorded Losartan/Hydrochlorothiazide 1 each PO DAILY 07/17/16 [Losartan-Hctz 50-12.5 mg Tab] Acetaminophen [Tylenol] 1,000 mg PO Q8 07/17/17 Aspirin 325 mg PO BIDCM 07/17/17 Scopolamine Patch 1mg/72hr 1 patch TD Q3D 07/17/17 [Transderm-Scop] TraMADol [Ultram] 50 mg PO Q6H PRN PRN 7 Days #60 tab 07/17/17 Surgical History: - - Recent R TKR, appendectomy, cholecystectomy, hysterectomy , prior left shoulder hemiarthroplasty w/ revision, right hip replacement, loop recorder, tonsillectomy. Psychiatric History: No pertinent psych hx [facility] History: No pertinent [facility] history Lives: Spouse/ Significant Other Smoking Status: Never smoker Tobacco Use: Non-smoker Alcohol: Occasional Drugs: None - *Family History Paternal History Items: Diabetes, Hypertension Maternal History Items: Hypertension Review of Systems Constitutional: Denies: Chills, Fever Eyes: Denies: Blurred vision HEENT: Denies: Difficulty Swallowing Cardiovascular: Denies: Chest Pain Respiratory: Denies: Shortness of breath at rest Gastrointestinal: Denies: Abdominal Pain, Nausea - currently, Vomiting - currently Genitourinary: Denies: Dysuria Skin: Denies: Rash Neurological: Denies: Blurred vision Psychiatric: Denies: Anxiety, Depression Hematologic/ Lymphatic: Reports: Easy Bruising - Physical Exam General: Alert, Oriented x3, Cooperative, No apparent distress HEENT: - - NG in place Lungs: Normal air movement Cardiovascular: Regular rate, Regular Rhythm Abdomen: Soft, Non Tender, Non-Distended, Passing Flatus, - - well healed R subcostal and Pfannenstiel incision, no guarding or rebound Vital Signs Temp Pulse Resp BP Pulse Ox 97.6 F L 77 17 141/70 H 98 07/22/17 02:08 07/22/17 02:08 07/22/17 02:08 07/22/17 02:08 07/22/17 02:08 Oxygen Delivery Method Room Air Weight: 209 lb 10.554 oz Body Mass Index (BMI) 35.9 Intake and Output for Last 24 Hours 07/20/17 07/21/17 07/22/17 23:59 23:59 23:59 Intake Total 680 / 680 1573 / 1573 Output Total 1900 / 1900 Balance 680 / 680 -327 / -327 Laboratory Tests Past 24 Hrs 07/22/17 07/22/17 05:35 05:35 WBC 7.8 RBC 4.05 L Hgb 12.4 Hct 39.3 MCV 97.0 MCH 30.6 MCHC 31.6 L RDW 13.5 RDW Differential 47.9 H Plt Count 220 MPV 9.5 Immature Gran % (Auto) 0.300 Neut % (Auto) 67.8 Lymph % (Auto) 20.6 [place] % (Auto) 10.2 H Eos % (Auto) 1.0 Baso % (Auto) 0.1 Absolute Neuts (auto) 5.3 Absolute Lymphs (auto) 1.60 Total Counted Not Reportable Sodium 140 Potassium 3.7 Chloride 109 H Carbon Dioxide 24.0 Anion Gap 7 BUN 13 Creatinine 0.58 Estim Creat Clear Calc 45.20 Est GFR (MDRD) Af Amer 132 Est GFR (MDRD) Non-Af 109 BUN/Creatinine Ratio 22.4 H Glucose 70 L Calcium 8.5 Assessment/Plan 72-year-old female status post right total knee on 07/15/17 with nausea/vomiting , ileus versus partial small bowel obstruction 1. Continue conservative management with NG n.p.o. IV fluids. Patient's put out over a liter from the NG since insertion last night. We will plan for CT abdomen pelvis with IV and p.o. contrast-Gastrografin for better evaluation of her small bowel and colon. Currently patient denies any nausea/vomiting or abdominal pain. And is having small amount of flatus and had a bowel movement daily since . Beatriz Wallace M.D. Pager: [phone] [facility] [address] [place] [address], [address] [place] [id number] Office: [phone] Code Visit Inpatient E&M: 30429 Init Hosp L1
[2017-07-22] MEDS: 0.9% Normal Saline 1,000 ML 125 ML IV ×2 (07:45→16:35)
[2017-07-22] MEDS: Ondansetron 4 MG/2 ML Vial IV (07:46)
[2017-07-22 08:00] VITALS: BP 149/80; PULSE 73; RESP 18; TEMP 37.2; O2SAT 98
[2017-07-22 08:13] VITALS: O2SAT 99
--- NOTE | 2017-07-22 09:00 | CT_ITS ---
STUDY: CT ABDOMEN AND PELVIS WITH CONTRAST REASON FOR EXAM: Female, 72 years old. ILEUS/SBO, INTRACTABLE N/V, ABD DISTENTION, RECENT RT TKR, HX-HTN, GRAVES DZ, SURG-APPY, HYSTER, LT SHOULDER RECON, LOOP RECORDER. RADIATION DOSAGE (If Supplied By Facility): CTDIvol = ( 23.21 ) mGy, DLP = ( 1765.37 ) mGycm TECHNIQUE: Transaxial images were obtained from the dome of the diaphragm to the symphysis pubis with oral contrast. 100 ml of Isovue 300 contrast was administered. Sagittal and coronal images were reconstructed. Individualized dose optimization techniques were used for this CT. COMPARISON: None. FINDINGS: There is trace atelectasis at the lung bases. There is NG tube within the fundus of the stomach. Normal liver. There are surgical clips in the gallbladder fossa consistent with a prior cholecystectomy. Normal spleen. Normal pancreas. Normal bilateral adrenal glands. There is a 3 mm calculus at the mid pole of the right kidney. Normal left kidney. Normal visualized stomach. Normal small intestine. There are multiple colonic diverticula consistent with diverticulosis. There is non-visualization of the appendix. There is diffuse atherosclerotic calcification of the abdominal aorta, without a demonstrated aneurysm. Normal inferior vena cava. Normal retroperitoneum. Normal urinary bladder. There is trace amount of free fluid within the pelvis Normal abdominal wall. There are diffuse degenerative changes of the visualized lumbar spine. CT/Abdomen/Pelvis WITH Contrast IMPRESSION: No bowel obstruction. Trace amount of free fluid. Small nonobstructing calculus of the right kidney. Cholecystectomy. Electronically Signed: Abena Eldridge MD at 10:15 EST Tel , Service support ,
[2017-07-22] MEDS: Enoxaparin 40 MG/0.4 ML Syringe SC (10:45)
[2017-07-22] MEDS: 0.9% NaCl Peripheral Flush Adult/Peds IV (12:13)
--- NOTE | 2017-07-22 13:37 | CASEMGMT ---
Social Work Note Face to face with the pt to discuss discharge plan. Introduced self and role at [facility]. Pt confirms that her plan is to return to once medically stable. Jeannie notified. SW to continue to follow and assist with discharge planning. Plan: for continued rehabilitation. La Card, BOARD CERTIFIED BEHAVIORAL ANALYST, HOT STRIP MILL SUPERVISOR
--- NOTE | 2017-07-22 15:26 | PCM.PN.HOSP ---
Patient Problems: Active and Suspected Problems Ileus (Acute) Subjective: Patient was seen and examined. Going for CT scan of the abdomen. Passing gas. Denies any abdominal pain or nausea or vomiting. NG tube is in situ. General surgery following. Objective: Physical Examination: General: awake, alert, oriented x 3 and cooperative, in no apparent distress. Skin: normal color, turgor, no icterus, cyanosis, s/p R TKR. HEENT: Dry oral mucosa Lungs: CTA bilaterally, Vesicular BS, no rales, ronchi or wheezing. Heart: Regular rate and rhythm; no gallop, rub audible. Abdomen: soft, obese,moderately distended but soft, non-tender, normal BS Extremities: no edema. Neurological: patient awake, alert, oriented x 3; cognitive function intact; pupils equally reactive to light and accomodation; cranial nerves II-XII grossly normal, moving all 4 extremities except expected limitations given recent R TKR and prior remote operative interventions to LUE Psychiatric: affect appears fatigued, no acute evidence of depressive or anxiety feelings. Vitals/I&O's: Vital Signs Temp Pulse Resp BP Pulse Ox 98.9 F 73 18 149/80 H 99 07/22/17 08:00 07/22/17 08:00 07/22/17 08:00 07/22/17 08:00 07/22/17 08:13 Oxygen Delivery Method Room Air Weight: 95.1 kg Body Mass Index (BMI) 35.9 Intake and Output for Last 24 Hours 07/20/17 07/21/17 07/22/17 23:59 23:59 23:59 Intake Total 680 / 680 2535 / 2535 Output Total 2280 / 2280 Balance 680 / 680 255 / 255 Laboratory Results 07/22/17 05:35: WBC 7.8, RBC 4.05 L, Hgb 12.4, Hct 39.3, MCV 97.0, MCH 30.6, MCHC 31.6 L, RDW 13.5, RDW Differential 47.9 H, Plt Count 220, MPV 9.5, Immature Gran % (Auto) 0.300, Neut % (Auto) 67.8, Lymph % (Auto) 20.6, [place] % (Auto) 10.2 H, Eos % (Auto) 1.0, Baso % (Auto) 0.1, Absolute Neuts (auto) 5.3, Absolute Lymphs (auto) 1.60, Total Counted Not Reportable 07/22/17 05:35: Sodium 140, Potassium 3.7, Chloride 109 H, Carbon Dioxide 24.0, Anion Gap 7, BUN 13, Creatinine 0.58, Estim Creat Clear Calc 45.20, Est GFR (MDRD) Af Amer 132, Est GFR (MDRD) Non-Af 109, BUN/Creatinine Ratio 22.4 H, Glucose 70 L, Calcium 8.5 Current Medications Enoxaparin Sodium (Lovenox) 40 mg SC DAILY@1000 DESTINY Last Admin: 07/22/17 10:45 Dose: 40 mg Hydralazine HCl (Apresoline) 10 mg IV Q4H PRN PRN PRN Reason: SBP > 160 Sodium Chloride () 1,000 mls @ 125 mls/hr IV .Q8H DESTINY Last Admin: 07/22/17 07:45 Dose: 125 mls/hr Famotidine 20 mg/ Sodium (Chloride) 10 mls @ 300 mls/hr IV Q12 DESTINY Last Admin: 07/22/17 10:47 Dose: 300 mls/hr Magnesium Hydroxide (Milk Of Magnesia) 30 ml PO DAILY PRN PRN PRN Reason: Constipation Morphine Sulfate (Morphine) 1 - 2 mg IV Q4H PRN PRN PRN Reason: PAIN Last Admin: 07/22/17 12:12 Dose: 2 mg Ondansetron HCl (Zofran) 4 mg IV Q8H PRN PRN PRN Reason: NAUSEA Last Admin: 07/22/17 07:46 Dose: 4 mg Promethazine HCl (Phenergan (Ll)) 12.5 mg IV Q6H PRN PRN PRN Reason: NAUSEA/VOMITING Sodium Chloride () 5 - 30 ml IV UD PRN PRN Reason: SALINE FLUSH Last Admin: 07/22/17 12:13 Dose: 10 ml Assessment/Plan Active and Suspected Problems Ileus (Acute) 72 y/o F with PMHx of hypertension, obesity, OA, Hypothyroidism, Sinus arrhythmia following with Dr. Wheat who was recently transitioned to the [facility] on 07/18/17 for continued PT, OT following R TKR by Dr. Zaki Pickett on 07/15/17 admitted with intractable nausea and emesis with abdominal distention postoperatively. 1. Abdominal pain, nausea, emesis likely secondary to postop ileus, small bowel obstruction without with CT scan of the abdomen and pelvis with oral contrast, general surgery following, patient maintained with conservative management with NG tube, further management per general surgery, will continue IV fluid 2. s/p R TKR [id number], continue with PT/OT, and is fairly controlled with parenteral morphine as needed 3. Hx Graves Disease, needs to follow-up in the outpatient with static balancer, 4. Sinus arrhythmia, follow-up in the outpatient. 5. Obesity, weight loss and lifestyle changes encouraged. 6. GERD, on IV Famotidine. 7. Attention, blood pressure is stable, home oral medications on hold on account of n.p.o. status, on PRN Hydralazine. 8. DVT Prophylaxis with SCDs, lovenox. Code Visit Inpatient E&M: 47887 Subs Hosp L2
--- NOTE | 2017-07-22 15:47 | PN_ITS ---
Patient Problems: Active and Suspected Problems Ileus (Acute) Subjective: Patient was seen and examined. Going for CT scan of the abdomen. Passing gas. Denies any abdominal pain or nausea or vomiting. NG tube is in situ. General surgery following. Objective: Physical Examination: General: awake, alert, oriented x 3 and cooperative, in no apparent distress. Skin: normal color, turgor, no icterus, cyanosis, s/p R TKR. HEENT: Dry oral mucosa Lungs: CTA bilaterally, Vesicular BS, no rales, ronchi or wheezing. Heart: Regular rate and rhythm; no gallop, rub audible. Abdomen: soft, obese,moderately distended but soft, non-tender, normal BS Extremities: no edema. Neurological: patient awake, alert, oriented x 3; cognitive function intact; pupils equally reactive to light and accomodation; cranial nerves II-XII grossly normal, moving all 4 extremities except expected limitations given recent R TKR and prior remote operative interventions to LUE Psychiatric: affect appears fatigued, no acute evidence of depressive or anxiety feelings. Vitals/I&O's: Vital Signs Temp Pulse Resp BP Pulse Ox 98.9 F 73 18 149/80 H 99 07/22/17 08:00 07/22/17 08:00 07/22/17 08:00 07/22/17 08:00 07/22/17 08:13 Oxygen Delivery Method Room Air Weight: 95.1 kg Body Mass Index (BMI) 35.9 Intake and Output for Last 24 Hours 07/20/17 07/21/17 07/22/17 23:59 23:59 23:59 Intake Total 680 / 680 2535 / 2535 Output Total 2280 / 2280 Balance 680 / 680 255 / 255 Laboratory Results 07/22/17 05:35: WBC 7.8, RBC 4.05 L, Hgb 12.4, Hct 39.3, MCV 97.0, MCH 30.6, MCHC 31.6 L, RDW 13.5, RDW Differential 47.9 H, Plt Count 220, MPV 9.5, Immature Gran % (Auto) 0.300, Neut % (Auto) 67.8, Lymph % (Auto) 20.6, [place] % ( Auto) 10.2 H, Eos % (Auto) 1.0, Baso % (Auto) 0.1, Absolute Neuts (auto) 5.3, Absolute Lymphs (auto) 1.60, Total Counted Not Reportable 07/22/17 05:35: Sodium 140, Potassium 3.7, Chloride 109 H, Carbon Dioxide 24.0, Anion Gap 7, BUN 13, Creatinine 0.58, Estim Creat Clear Calc 45.20, Est GFR ( MDRD) Af Amer 132, Est GFR (MDRD) Non-Af 109, BUN/Creatinine Ratio 22.4 H, Glucose 70 L, Calcium 8.5 Current Medications Enoxaparin Sodium (Lovenox) 40 mg SC DAILY@1000 DESTINY Last Admin: 07/22/17 10:45 Dose: 40 mg Hydralazine HCl (Apresoline) 10 mg IV Q4H PRN PRN PRN Reason: SBP > 160 Sodium Chloride () 1,000 mls @ 125 mls/hr IV .Q8H DESITNY Last Admin: 07/22/17 07:45 Dose: 125 mls/hr Famotidine 20 mg/ Sodium (Chloride) 10 mls @ 300 mls/hr IV Q12 DESTINY Last Admin: 07/22/17 10:47 Dose: 300 mls/hr Magnesium Hydroxide (Milk Of Magnesia) 30 ml PO DAILY PRN PRN PRN Reason: Constipation Morphine Sulfate (Morphine) 1 - 2 mg IV Q4H PRN PRN PRN Reason: PAIN Last Admin: 07/22/17 12:12 Dose: 2 mg Ondansetron HCl (Zofran) 4 mg IV Q8H PRN PRN PRN Reason: NAUSEA Last Admin: 07/22/17 07:46 Dose: 4 mg Promethazine HCl (Phenergan (Ll)) 12.5 mg IV Q6H PRN PRN PRN Reason: NAUSEA/VOMITING Sodium Chloride () 5 - 30 ml IV UD PRN PRN Reason: SALINE FLUSH Last Admin: 07/22/17 12:13 Dose: 10 ml Assessment/Plan Active and Suspected Problems Ileus (Acute) 72 y/o F with PMHx of hypertension, obesity, OA, Hypothyroidism, Sinus arrhythmia following with Dr. Wheat who was recently transitioned to the [facility] on 07/18/17 for continued PT, OT following R TKR by Dr. Zaki Pickett on 07/15/17 admitted with intractable nausea and emesis with abdominal distention postoperatively. 1. Abdominal pain, nausea, emesis likely secondary to postop ileus, small bowel obstruction without with CT scan of the abdomen and pelvis with oral contrast, general surgery following, patient maintained with conservative management with NG tube, further management per general surgery, will continue IV fluid 2. s/p R TKR [id number], continue with PT/OT, and is fairly controlled with parenteral morphine as needed 3. Hx Graves Disease, needs to follow-up in the outpatient with edge trimming machine operator, 4. Sinus arrhythmia, follow-up in the outpatient. 5. Obesity, weight loss and lifestyle changes encouraged. 6. GERD, on IV Famotidine. 7. Attention, blood pressure is stable, home oral medications on hold on account of n.p.o. status, on PRN Hydralazine. 8. DVT Prophylaxis with SCDs, lovenox. Code Visit Inpatient E&M: 96395 Subs Hosp L2
[2017-07-22 16:00] VITALS: BP 141/61; PULSE 68; RESP 18; TEMP 36.5; O2SAT 98
[2017-07-22] MEDS: 0.9% Normal Saline 1,000 ML 100 ML IV (18:26)
[2017-07-22 18:35] LABS: Mucous, Urine 0 SEEN /hpf (<or=2+); Red Blood Cells-Urine 0 SEEN /hpf (0-5)
[2017-07-22 18:50] LABS: Color, Urine Yellow (Yellow); Glucose, Dipstick Normal (Normal); Ketone-Dipstick 50 mg/dl (Negative); Leukocyte Esterase-Dipstick 25 /ul (Negative); Nitrite-Dipstick Negative (Negative); Occult Blood-Urine Negative /ul (Negative); Protein-Dipstick 15 mg/dl (Negative); Specific Gravity, Urine 1.015 (1.002-1.030); Urine Bilirubin Dipstick Negative (Negative); Urine Clarity Clear (Clear); Urine Urobilinogen Normal (Normal)
[2017-07-22 18:59] LABS: Squamous Epithelial Cells - UA 0-5 SEEN /hpf (5-10); White Blood Cells 0-5 SEEN /hpf (0-5)
[2017-07-22 19:00] LABS: Bacteria RARE /hpf (None Seen)
[2017-07-22] MEDS: Docusate Sodium 100 MG Capsule PO (21:38)
[2017-07-22] MEDS: Acetaminophen 500 MG Tablet 1000 MG PO (21:38)
[2017-07-22 21:43] VITALS: BP 161/71; PULSE 67; RESP 16; TEMP 36.7; O2SAT 100
[2017-07-23 02:20] VITALS: BP 150/72; PULSE 72; RESP 18; TEMP 37.1; O2SAT 94
[2017-07-23] MEDS: 0.9% Normal Saline 1,000 ML 100 ML IV (03:20)
[2017-07-23] MEDS: Acetaminophen 500 MG Tablet 1000 MG PO ×2 (06:04→13:20)
[2017-07-23 06:32] LABS: Absolute Lymphocyte Count 1.58 X10^3/ul (0.83-4.51); Absolute Neutrophil Count 5.2 X10^3/uL (2.0-7.7); Basophil# 0.01 X10^3/uL; Basophil% 0.1 % (0-1); Eosinophils% 2.6 % (0-5); Hematocrit 35.7 % (37-47); Hemoglobin 11.4 g/dl (12.0-15.0); Lymphocyte # 1.58 X10^3/ul (4.0); Lymphocyte % 20.6 % (19-41); Mean Corp Hgb Conc 31.9 g/gl (32-36); Mean Corpuscular Hgb 30.6 pg (27.0-32.0); Mean Platelet Vol. 9.2 fl (6.2-12.0); Monocyte# 0.62 X10^3/uL; Monocyte% 8.1 % (0-10); Neutrophil # 5.18 X10^3/uL (2.7-7.7); Neutrophil % 67.4 % (47-70); Platelet Count 208 K/mm3 (150-450); RBC Distribution Width CV 13.3 % (11.6-14.6); RBC Distribution Width SD 46.7 fl (35.1-43.9); Red Blood Count 3.72 M/mm3 (4.2-5.4); White Blood Count 7.7 K/mm3 (4.4-11.0)
[2017-07-23 06:38] LABS: POSITIVE COUNT NO; POSITIVE DIFFERENTIAL NO; POSITIVE MORPHOLOGY NO
[2017-07-23 06:53] LABS: Anion Gap 7 (5-15); BUN 8 mg/dL (7-18); BUN/Creat Ratio 17.8 RATIO (10-20); Calcium,Total 8.3 mg/dL (8.5-10.1); Chloride 109 mmol/L (98-107); Creatinine, Serum 0.45 mg/dL (0.55-1.02); EST Glomerular Filtration Rate 146 mL/min (>60); Est Glom Filt Rate - Afr Amer 177 mL/min (>60); Glucose 82 mg/dL (74-106); Potassium 3.2 mmol/L (3.5-5.1); Sodium Level 142 mmol/L (136-145)
[2017-07-23 06:58] VITALS: O2SAT 98
[2017-07-23 07:54] VITALS: BP 148/70; PULSE 77; RESP 18; TEMP 36.9; O2SAT 97
--- NOTE | 2017-07-23 08:11 | PCM.PN.SRG ---
Patient Problems: Active and Suspected Problems Ileus (Acute) Subjective: CT abdomen pelvis did not show any obstruction and the contrast was in the colon. Patient is able to have NG removed yesterday denies any nausea or vomiting since then and has been having flatus and had a bowel movement this morning. Patient just finished her clear breakfast and is ready for regular diet - Physical Exam General: Alert, Oriented x3, Cooperative, No apparent distress Abdomen: Soft, Non Tender, Non-Distended, - - no guarding/rebound Vital Signs Temp Pulse Resp BP Pulse Ox 98.4 F 77 18 148/70 H 97 07/23/17 07:54 07/23/17 07:54 07/23/17 07:54 07/23/17 07:54 07/23/17 07:54 Oxygen Delivery Method Room Air Weight: 209 lb 10.554 oz Body Mass Index (BMI) 35.9 Intake and Output for Last 24 Hours 07/21/17 07/22/17 07/23/17 23:59 23:59 23:59 Intake Total 680 / 680 3675 / 3675 1387 / 1387 Output Total 2730 / 2730 150 / 150 Balance 680 / 680 945 / 945 1237 / 1237 Laboratory Tests Past 24 Hrs 07/22/17 07/23/17 07/23/17 18:00 06:05 06:05 WBC 7.7 RBC 3.72 L Hgb 11.4 L Hct 35.7 L MCV 96.0 MCH 30.6 MCHC 31.9 L RDW 13.3 RDW Differential 46.7 H Plt Count 208 MPV 9.2 Immature Gran % (Auto) 1.200 H Neut % (Auto) 67.4 Lymph % (Auto) 20.6 [place] % (Auto) 8.1 Eos % (Auto) 2.6 Baso % (Auto) 0.1 Absolute Neuts (auto) 5.2 Absolute Lymphs (auto) 1.58 Total Counted Not Reportable Sodium 142 Potassium 3.2 L Chloride 109 H Carbon Dioxide 26.0 Anion Gap 7 BUN 8 Creatinine 0.45 L Estim Creat Clear Calc 45.20 Est GFR (MDRD) Af Amer 177 Est GFR (MDRD) Non-Af 146 BUN/Creatinine Ratio 17.8 Glucose 82 Calcium 8.3 L Urine Color Yellow Urine Clarity Clear Urine pH 6.0 Ur Specific [place] 1.015 Urine Protein 15 H Urine Glucose (UA) Normal Urine Ketones 50 H Urine Occult Blood Negative Urine Nitrite Negative Urine Bilirubin Negative Urine Urobilinogen Normal Ur Leukocyte Esterase 25 H Urine RBC 0 SEEN Urine WBC 0-5 SEEN Ur Squamous Epith Cells 0-5 SEEN Urine Bacteria RARE Urine Mucus 0 SEEN Assessment/Plan Active and Suspected Problems Ileus (Acute) 72-year-old female status post right total knee on 07/15/17 with nausea/vomiting-resolved, ileus versus partial small bowel obstruction-resolved 1. CT of abdomen pelvis showed no obstruction. Patient denies nausea/vomiting tolerating clears yesterday as well as her clear breakfast this morning. Patient hungry and ready for regular diet. Will advance diet to regular. Patient does well with diet okay to D/C/move back to rehab her surgery standpoint. Beatriz Wallace M.D. Pager: [phone] [facility] [address] [place] [address], [address] [place] [address] Office: [phone]
--- NOTE | 2017-07-23 08:14 | PN.SURG_ITS ---
Patient Problems: Active and Suspected Problems Ileus (Acute) Subjective: CT abdomen pelvis did not show any obstruction and the contrast was in the colon. Patient is able to have NG removed yesterday denies any nausea or vomiting since then and has been having flatus and had a bowel movement this morning. Patient just finished her clear breakfast and is ready for regular diet - Physical Exam General: Alert, Oriented x3, Cooperative, No apparent distress Abdomen: Soft, Non Tender, Non-Distended, - - no guarding/rebound Vital Signs Temp Pulse Resp BP Pulse Ox 98.4 F 77 18 148/70 H 97 07/23/17 07:54 07/23/17 07:54 07/23/17 07:54 07/23/17 07:54 07/23/17 07:54 Oxygen Delivery Method Room Air Weight: 209 lb 10.554 oz Body Mass Index (BMI) 35.9 Intake and Output for Last 24 Hours 07/21/17 07/22/17 07/23/17 23:59 23:59 23:59 Intake Total 680 / 680 3675 / 3675 1387 / 1387 Output Total 2730 / 2730 150 / 150 Balance 680 / 680 945 / 945 1237 / 1237 Laboratory Tests Past 24 Hrs 07/22/17 07/23/17 07/23/17 18:00 06:05 06:05 WBC 7.7 RBC 3.72 L Hgb 11.4 L Hct 35.7 L MCV 96.0 MCH 30.6 MCHC 31.9 L RDW 13.3 RDW Differential 46.7 H Plt Count 208 MPV 9.2 Immature Gran % (Auto) 1.200 H Neut % (Auto) 67.4 Lymph % (Auto) 20.6 [place] % (Auto) 8.1 Eos % (Auto) 2.6 Baso % (Auto) 0.1 Absolute Neuts (auto) 5.2 Absolute Lymphs (auto) 1.58 Total Counted Not Reportable Sodium 142 Potassium 3.2 L Chloride 109 H Carbon Dioxide 26.0 Anion Gap 7 BUN 8 Creatinine 0.45 L Estim Creat Clear Calc 45.20 Est GFR (MDRD) Af Amer 177 Est GFR (MDRD) Non-Af 146 BUN/Creatinine Ratio 17.8 Glucose 82 Calcium 8.3 L Urine Color Yellow Urine Clarity Clear Urine pH 6.0 Ur Specific [place] 1.015 Urine Protein 15 H Urine Glucose (UA) Normal Urine Ketones 50 H Urine Occult Blood Negative Urine Nitrite Negative Urine Bilirubin Negative Urine Urobilinogen Normal Ur Leukocyte Esterase 25 H Urine RBC 0 SEEN Urine WBC 0-5 SEEN Ur Squamous Epith Cells 0-5 SEEN Urine Bacteria RARE Urine Mucus 0 SEEN Assessment/Plan Active and Suspected Problems Ileus (Acute) 72-year-old female status post right total knee on 07/15/17 with nausea/vomiting- resolved, ileus versus partial small bowel obstruction-resolved 1. CT of abdomen pelvis showed no obstruction. Patient denies nausea/vomiting tolerating clears yesterday as well as her clear breakfast this morning. Patient hungry and ready for regular diet. Will advance diet to regular. Patient does well with diet okay to D/C/move back to rehab her surgery standpoint. Beatriz Wallace M.D. Pager: [phone] [facility] [address] [place] [address], [address] [place] [address] Office: [phone]
--- NOTE | 2017-07-23 09:55 | PCM.DC ---
- Discharge Diagnoses Current Active Problems: Current Active and Chronic Problems Ileus (Acute) Reason(s) for Visit for Discharge Instructions: Nausea and vomiting You will use the following diet at home:: Regular Your food should be the consistency of: Regular Your liquids should be the consistency of: Regular/Thin Discharge Activity: Return to Normal Activity Allergies/Adverse Reactions: Allergies adhesive Adverse Reaction (Verified 06/11/17 13:09) Other levofloxacin [From Levaquin] Adverse Reaction (Verified 06/11/17 13:09) Other JITTERY, UNABLE TO SLEEP FOR 2 DAYS lisinopril Adverse Reaction (Verified 06/11/17 13:09) Other COUGHING Medications to take at Discharge Losartan/Hydrochlorothiazide [Losartan-Hctz 50-12.5 mg Tab] 1 each PO DAILY 07/17/16 Acetaminophen [Tylenol] 1,000 mg PO Q8 07/17/17 Aspirin 325 mg PO BIDCM 07/17/17 Scopolamine Patch 1mg/72hr [Transderm-Scop] 1 patch TD Q3D 07/17/17 TraMADol [Ultram] 50 mg PO Q6H PRN PRN 7 Days #60 tab 07/17/17 Docusate Sodium [Colace] 100 mg PO BID capsule 07/23/17 Primary Care Physician: Shoaib Begum DO [Primary Care Provider] - Proposed Discharge Date: 07/23/17
--- NOTE | 2017-07-23 09:57 | DS.PCM_ITS ---
Discharge Date and Diagnosis Date of Admission: 07/21/17 Date of Discharge: 07/23/17 - Primary Discharge Diagnosis Active and Suspected Problems Ileus (Acute) Hypokalemia - Secondary Discharge Diagnosis Chronic Problems Benign essential hypertension (Chronic) Osteoarthritis (Chronic) Obesity (BMI 30-39.9) (Chronic) Hypothyroidism (Chronic) Sinus arrhythmia (Chronic) Hospital Course and Treatment Imaging Results: Clinical Impression(s) from Imaging Studies KUB X-Ray 07/21/17 18:40 IMPRESSION: Enteric tube tip is in the left upper quadrant. Electronically Signed: Arlin Case MD at 19:40 EST , Service support , Abdomen X-Ray 07/22/17 06:35 IMPRESSION: Nonspecific bowel gas pattern. Electronically Signed: Jamal Gonzalez MD at 8:34 EST Tel [phone], Service support , Abdomen/Pelvis CT 07/22/17 09:00 IMPRESSION: No bowel obstruction. Trace amount of free fluid. Small nonobstructing calculus of the right kidney. Cholecystectomy. Electronically Signed: Abena Eldridge MD at 10:15 EST Tel , Service support , General surgery Operations: None Procedures: None Summary of Care Provided: 72 y/o F with PMHx of hypertension, obesity, OA, Hypothyroidism, Sinus arrhythmia following with Dr. Wheat who was recently transitioned to the [facility] Rehabilitation Facility on 07/18/17 for continued PT, OT following R TKR by Dr. Zaki Pickett on 07/15/17 admitted with intractable nausea and emesis with abdominal distention postoperatively. 1. Abdominal pain, nausea, emesis secondary to postop ileus, CT scan of the abdomen and pelvis with oral contrast showed no obstruction of small bowels. Patient was managed conservatively with NG tube, bowel rest, IV fluids with improvement. NG tube removed on 07/22/17, patient tolerated regular diet and discharged back to inpatient rehab. 2. s/p R TKR 128 2017, will continue with therapy. 3. Hx Graves Disease, needs to follow-up in the outpatient with installation helper, 4. Sinus arrhythmia, follow-up in the outpatient. 5. Obesity, weight loss and lifestyle changes encouraged. 6. GERD 7. Hypertension, home regimen resumed. Discharge Diet: No Restrictions Discharge Activity: Return to Normal Activity Home Medications: Medications to take at Discharge Losartan/Hydrochlorothiazide [Losartan-Hctz 50-12.5 mg Tab] 1 each PO DAILY Acetaminophen [Tylenol] 1,000 mg PO Q8 07/17/17 Aspirin 325 mg PO BIDCM 07/17/17 Scopolamine Patch 1mg/72hr [Transderm-Scop] 1 patch TD Q3D 07/17/17 TraMADol [Ultram] 50 mg PO Q6H PRN PRN 7 Days #60 tab 07/17/17 Primary Care Physician: Shoaib Begum DO [Primary Care Provider] - Disposition: Inpt Rehab Unit/Facility Minutes spent on discharge:: 25 Patient Condition:: Stable Meaningful Use Info Meaningful Use Diagnoses (Choose all that apply): None applicable Code Visit Inpatient E&M: 06022 Disch Hosp
[2017-07-23] MEDS: Docusate Sodium 100 MG Capsule PO (10:02)
[2017-07-23] MEDS: Enoxaparin 40 MG/0.4 ML Syringe SC (10:03)
[2017-07-23] MEDS: Losartan Potassium 50 MG Tablet PO (10:05)
[2017-07-23] MEDS: HYDROCHLOROTHIAZIDE 12.5 MG CAPSULE PO (10:05)
[2017-07-23] MEDS: 0.9% NaCl Peripheral Flush Adult/Peds IV (13:18)
[2017-07-23] MEDS: Ondansetron 4 MG/2 ML Vial IV (13:18)
[2017-07-23 15:40] VITALS: BP 154/69; PULSE 78; RESP 18; TEMP 36.9; O2SAT 98
== END 2017-07-23 15:49 | DRG 394 ==
PROVIDERS: Surgery; Admitting Provider Family Medicine; Family Provider Family Medicine; PCP Family Medicine; Visit Provider Internal Medicine
DX: K91.89 Other postprocedural complications and disorders of digestive system (principal); K56.7 Ileus, unspecified; E05.00 Thyrotoxicosis with diffuse goiter without thyrotoxic crisis or storm; I49.8 Other specified cardiac arrhythmias; E87.6 Hypokalemia; E03.9 Hypothyroidism, unspecified; I10 Essential (primary) hypertension; M19.90 Unspecified osteoarthritis, unspecified site; E66.9 Obesity, unspecified; K21.9 Gastro-esophageal reflux disease without esophagitis; Z96.651 Presence of right artificial knee joint; Z68.35 Body mass index [BMI] 35.0-35.9, adult; Z79.82 Long term (current) use of aspirin; Z90.49 Acquired absence of other specified parts of digestive tract
CPT/HCPCS: 36415; 74018; 74019; 74177; 80048; 81001; 85025; 97162; 97166; J7030; Q9967; A4216; J2405; J3490

== ENCOUNTER → 2017-08-02 10:00 | Outpatient (CLI) | payer MEDICARE, OTHER, SELFPAY ==
[2017-08-02 12:12] LABS: Anion Gap 7 (5-15); BUN 14 mg/dL (7-18); BUN/Creat Ratio 21.3 RATIO (10-20); Calcium,Total 9.6 mg/dL (8.5-10.1); Chloride 104 mmol/L (98-107); Creatinine, Serum 0.66 mg/dL (0.55-1.02); EST Glomerular Filtration Rate 95 mL/min (>60); Est Glom Filt Rate - Afr Amer 115 mL/min (>60); Glucose 97 mg/dL (74-106); Potassium 3.8 mmol/L (3.5-5.1); Sodium Level 139 mmol/L (136-145)
== END ==
PROVIDERS: Family Provider Family Medicine; PCP Family Medicine; Visit Provider Family Medicine
DX: I10 Essential (primary) hypertension (principal)
CPT/HCPCS: 36415; 80048

== ENCOUNTER → 2018-01-20 09:22 | Outpatient (CLI) | payer MEDICARE, OTHER, SELFPAY ==
[2018-01-20 09:59] LABS: Absolute Lymphocyte Count 1.78 X10^3/ul (0.83-4.51); Absolute Neutrophil Count 6.4 X10^3/uL (2.0-7.7); Basophil# 0.01 X10^3/uL; Basophil% 0.1 % (0-1); Eosinophil# 0.06 X10^3/uL; Eosinophils% 0.7 % (0-5); Hemoglobin 13.9 g/dl (12.0-15.0); Lymphocyte # 1.78 X10^3/ul (4.0); Lymphocyte % 20.7 % (19-41); Mean Corp Hgb Conc 31.6 g/gl (32-36); Mean Corpuscular Hgb 30.1 pg (27.0-32.0); Mean Corpuscular Volume 95.2 fL (81-99); Mean Platelet Vol. 9.5 fl (6.2-12.0); Monocyte# 0.36 X10^3/uL; Monocyte% 4.2 % (0-10); Neutrophil # 6.37 X10^3/uL (2.7-7.7); Neutrophil % 74.1 % (47-70); Platelet Count 234 K/mm3 (150-450); RBC Distribution Width CV 13.5 % (11.6-14.6); RBC Distribution Width SD 46.9 fl (35.1-43.9); Red Blood Count 4.62 M/mm3 (4.2-5.4); White Blood Count 8.6 K/mm3 (4.4-11.0)
[2018-01-20 10:00] LABS: POSITIVE COUNT NO; POSITIVE DIFFERENTIAL NO; POSITIVE MORPHOLOGY NO
[2018-01-20 10:44] LABS: Anion Gap 11 (5-15); BUN 15 mg/dL (7-18); Calcium,Total 9.3 mg/dL (8.5-10.1); Chloride 103 mmol/L (98-107); Cholesterol 149 mg/dL (200); Creatinine, Serum 0.79 mg/dL (0.55-1.02); EST Glomerular Filtration Rate 77 mL/min (>60); Est Glom Filt Rate - Afr Amer 93 mL/min (>60); Free T3 2.6 pg/mL (2.18-3.98); Glucose 89 mg/dL (74-106); High Density Lipoprotein 58 mg/dL; Potassium 3.6 mmol/L (3.5-5.1); Sodium Level 144 mmol/L (136-145); T4 Free Direct 1.23 ng/dL (0.76-1.46); Thyroid Stim Hormone (TSH) 1.23 uIU/mL (0.358-3.74); Triglycerides 79 mg/dL; Very Low Density Lipoprotein 16 mg/dL (5-40)
== END ==
PROVIDERS: Family Provider Family Medicine; PCP Family Medicine; Visit Provider Family Medicine
DX: Z00.01 Encounter for general adult medical examination with abnormal findings (principal); I10 Essential (primary) hypertension; Z86.39 Personal history of other endocrine, nutritional and metabolic disease; R53.83 Other fatigue; K57.92 Diverticulitis of intestine, part unspecified, without perforation or abscess without bleeding; E78.5 Hyperlipidemia, unspecified
CPT/HCPCS: 36415; 80048; 80061; 84439; 84443; 84481; 85025

== ENCOUNTER → 2018-02-26 14:43 | Outpatient (CLI) | payer MEDICARE, OTHER, SELFPAY ==
--- NOTE | 2018-02-26 14:46 | BI_ITS ---
MAMMOGRAPHY - BILATERAL SCREENING REASON FOR EXAM: Female, 72 years old. Routine annual screening examination. PERTINENT HISTORY: Non-contributory. Remote right excisional breast biopsy. TECHNIQUE: Digital bilateral breast w[place] (3D mammographic acquisition) in the CC and MLO projections. 2-D mediolateral oblique (MLO) and craniocaudad (CC) views of both breasts were obtained. CAD: Full Field Digital Mammography with Computer Added Detection was performed. COMPARISON: Comparison is made with prior study dated December 27, 2016 and July 13, 2015. FINDINGS: Breast Composition: The breasts are almost entirely fatty. There are no dominant masses or suspicious calcifications. A loop recorder device is seen in the inferior medial portion of the left breast. No other significant abnormalities are identified. There has been no significant change since the prior study. BI/SCREENING MAMM (CAD), BILAT IMPRESSION: Stable bilateral screening mammogram. Yearly follow-up mammogram recommended. (A) ASSESSMENT CATEGORY: BIRADS Category 2: Benign. A letter regarding these results will be sent to the patient by the facility within 30 days. Approximately 10% of breast cancers are not detected by mammography. A normal mammogram should not delay biopsy of a clinically suspicious abnormality. [id number] Electronically Signed: Jamal Gonzalez MD at 13:08 EDT Tel [phone], Service support ,
--- NOTE | 2018-02-26 14:46 | US_ITS ---
STUDY: THYROID ULTRASOUND REASON FOR EXAM: Female, 72 years old. Patient has Graves' disease. Follow-up of thyroid nodules. TECHNIQUE: Ultrasound evaluation of the thyroid was performed with real-time and static oglesby-scale imaging. COMPARISON: Thyroid ultrasound dated July 13, 2015. FINDINGS: RIGHT LOBE: The right lobe of the thyroid gland measures 5.0 x 1.6 x 1.7 cm. There is a heterogeneous echotexture. There are multiple hypoechoic nodules. The largest are measured. There is a heterogeneously hypoechoic nodule in the midpole of the right lobe of thyroid measuring 9.8 x 7.3 x 7.6 mm. On the previous ultrasound this measures 7.8 x 5.6 x 7.7 mm. There is a hypoechoic nodule in lower pole of the right lobe of the thyroid measuring 5.5 x 8.2 x 4.4 mm. On the previous ultrasound this measures 7.7 x 4.1 x 6.4 mm. There is a nearly isoechoic oval nodule in the lower pole of the right lobe of thyroid measuring 10.1 x 5.0 x 8.8 mm. On the previous ultrasound of this measure 9.4 x 5.2 x 8.7 mm. There is an oval hypoechoic nodule at the lower pole of the right lobe of thyroid measuring 6.3 x 3.4 x 4.6 mm. On the previous ultrasound this measured 5.8 x 3.6 x 4.8 mm. LEFT LOBE: The left lobe of the thyroid gland measures 4.9 x 1.5 x 1.7 cm. There is a heterogeneous echotexture. There is a small oval hypoechoic lesion measuring 7.4 x 1.7 x 3.7 mm. On the previous ultrasound this measured 4.9 x 1.9 x 3.6 mm. There is an isoechoic nodule within the lower pole of the left lobe of thyroid measuring 4.9 x 6.7 x 4.0 mm. On the previous ultrasound this is not definitely identified. ISTHMUS: The isthmus measures 2 millimeters. The regional lymph nodes are normal. US/Thyroid IMPRESSION: Multiple thyroid nodules as described. Electronically Signed: Arlin Case MD at 5:06 EDT , Service support ,
== END ==
PROVIDERS: Family Provider Family Medicine; PCP Family Medicine; Visit Provider Family Medicine
DX: Z12.31 Encounter for screening mammogram for malignant neoplasm of breast (principal); Z86.39 Personal history of other endocrine, nutritional and metabolic disease
CPT/HCPCS: 76536; 77063; 77067

== ENCOUNTER → 2018-09-10 10:39 | Outpatient (CLI) | payer MEDICARE, OTHER, SELFPAY ==
[2018-09-10 10:39] VITALS: BMI 35.9
--- NOTE | 2018-09-10 10:46 | RAD_ITS ---
STUDY: X-RAY - LUMBAR SPINE REASON FOR EXAM: Female, 73 years old. Pain. TECHNIQUE: 5 view(s) of the lumbar spine were obtained. COMPARISON: None FINDINGS: Normal lumbar lordosis. There is a minimal levoscoliosis with convexity at L2. There is a normal alignment of the vertebrae. There is multilevel endplate spondylosis of the lumbar vertebrae. There is multi-level degenerative disc disease with multi-level disc space narrowing. There is no evidence of acute fracture or loss of vertebral axial height. There is no demonstrated spondylolysis of the pars interarticulares. There are surgical clips in the right upper quadrant consistent with prior cholecystectomy. There is a right artificial hip. RAD/L/S Spine Min 4 Views IMPRESSION: Degenerative changes of the spine, as detailed above. Electronically Signed: Shiva Leon DO at 15:25 EDT Tel [phone], Service support ,
== END ==
PROVIDERS: Family Provider Family Medicine; PCP Family Medicine; Referring Provider Family Medicine; Visit Provider Family Medicine
DX: M54.5 Low back pain (principal)
CPT/HCPCS: 72110

== ENCOUNTER → 2018-12-23 13:22 | Outpatient (CLI) | payer MEDICARE, OTHER, SELFPAY ==
[2018-09-10 10:39] VITALS: BMI 35.9
--- NOTE | 2018-12-23 13:36 | VDLE_ITS ---
Reason For Study: calf tenderness, edema RIGHT LEFT CFV is compressible, spontaneous, phasic, GSV is normal. competent and demonstrates normal CFV is compressible, spontaneous, phasic, augmentation. competent, and demonstrates normal Procedure augmentation. Exam performed in department. FV is compressible, spontaneous, phasic, The exam was diagnostic. competent and demonstrates normal A preliminary report was called and/or faxed augmentation. to Dr. Begum. POP V is compressible, spontaneous, phasic, competent and demonstrates normal augmentation. T/P Trunk is compressible. PTV is compressible. LT PerV is compressible. Interpretation Summary Deep veins of the left lower extremity are patent and compressible segmentally. There is no evidence of left lower extremity deep vein thrombosis. Valvular competence appears intact within the proximal deep venous system on the left . The left greater saphenous vein appears patent and compressible segmentally. Ordering Physician: Shoaib Begum Performed By: Greg Melissa RVT
--- NOTE | 2018-12-23 14:11 | RAD_ITS ---
STUDY: X-RAY - LEFT ANKLE REASON FOR EXAM: Female, 73 years old. Swelling. Pain. TECHNIQUE: 3 view(s) of the ankle. COMPARISON: None. FINDINGS: There is no evidence of fracture or dislocation. There are no significant degenerative changes. There are no radiodense foreign bodies. There is diffuse soft tissue swelling noted. RAD/Ankle min 3 Views IMPRESSION: No fracture or dislocation. Diffuse soft tissue swelling. Electronically Signed: Amandeep Reynaga, at 15:39 EDT Tel , Service support ,
--- NOTE | 2018-12-23 14:15 | RAD_ITS ---
STUDY: X-RAY - LEFT FOOT CLINICAL: Female, 73 years old. Pain and swelling TECHNIQUE: 3 view(s) of the foot. COMPARISON: None. FINDINGS: There is no evidence of fracture or dislocation. There are no significant degenerative changes. There are no radiodense foreign bodies. RAD/Foot min 3 Views IMPRESSION: No fracture or dislocation. Electronically Signed: Amandeep Reynaga, at 15:28 EDT Tel , Service support ,
[2018-12-23 15:46] LABS: AST(SGOT) 21 U/L (15-37); Alanine Aminotransfer ALT/SGPT 23 U/L (13-56); Albumin, Serum 3.5 g/dL (3.2-5.0); Alkaline Phosphatase 92 U/L (45-117); Anion Gap 8 (5-15); BUN 12 mg/dL (7-18); BUN/Creat Ratio 14.7 RATIO (10-20); Calcium,Total 9.5 mg/dL (8.5-10.1); Chloride 107 mmol/L (98-107); Creatinine, Serum 0.82 mg/dL (0.55-1.02); EST Glomerular Filtration Rate 73 mL/min (>60); Est Glom Filt Rate - Afr Amer 89 mL/min (>60); Globulin 3.5 g/dL (2.2-4.2); Glucose 88 mg/dL (74-106); Potassium 3.6 mmol/L (3.5-5.1); Sodium Level 143 mmol/L (136-145); T4 Free Direct 1.29 ng/dL (0.76-1.46); Thyroid Stim Hormone (TSH) 0.63 uIU/mL (0.358-3.74)
== END ==
PROVIDERS: Family Provider Family Medicine; PCP Family Medicine; Referring Provider Family Medicine; Visit Provider Family Medicine
DX: M79.662 Pain in left lower leg (principal); R60.0 Localized edema; M79.672 Pain in left foot; E05.00 Thyrotoxicosis with diffuse goiter without thyrotoxic crisis or storm; L29.9 Pruritus, unspecified; I10 Essential (primary) hypertension
CPT/HCPCS: 36415; 73610; 73630; 80053; 84439; 84443; 93971

== ENCOUNTER → 2019-02-11 13:29 | Outpatient (CLI) | payer MEDICARE, OTHER, SELFPAY ==
[2019-02-11 09:26] VITALS: BMI 38.7
--- NOTE | 2019-02-11 13:34 | RAD_ITS ---
STUDY: X-RAY CHEST REASON FOR EXAM: Female, 73 years old. Her palpitations TECHNIQUE: PA and lateral views of the chest. COMPARISON: 03/05/2015 FINDINGS: Interval placement of an insertable monitor car operator. The lungs are clear and expanded. There is no demonstrated pleural abnormality. Normal size heart. Normal mediastinum and bayron. Normal visualized pulmonary arteries. Normal visualized aortic arch and descending thoracic aorta. Normal visualized thoracic spine. Status post left shoulder reverse arthroplasty. There is no demonstrated abnormality of the visualized soft tissue structures of the upper abdomen. RAD/Chest PA and Lateral IMPRESSION: Insertable monitor car operator in the anterior chest wall. No active disease. Electronically Signed: Valdemar Huerta MD at 14:03 EDT Tel , Service support ,
== END ==
PROVIDERS: Family Provider Family Medicine; PCP Family Medicine; Referring Provider Internal Medicine Cardiovascular Disease; Visit Provider Internal Medicine Cardiovascular Disease
DX: Z98.890 Other specified postprocedural states (principal)
CPT/HCPCS: 71046

== ENCOUNTER → 2019-02-27 10:54 | Outpatient (CLI) | payer MEDICARE, OTHER, SELFPAY ==
[2018-09-10 10:39] VITALS: BMI 35.9
[2019-02-11 09:26] VITALS: BMI 38.7
--- NOTE | 2019-02-27 12:03 | BI_ITS ---
MAMMOGRAPHY - BILATERAL SCREENING REASON FOR EXAM: Female, 73 years old. Routine annual screening examination. PERTINENT HISTORY: Non-contributory. Remote right excisional breast biopsy. TECHNIQUE: Digital bilateral breast yossi (3D mammographic acquisition) in the CC and MLO projections. 2-D mediolateral oblique (MLO) and craniocaudad (CC) views of both breasts were obtained. CAD: Full Field Digital Mammography with Computer Added Detection was performed. COMPARISON: Comparison is made with prior examination of February 26, 2018 and December 27, 2016. FINDINGS: Breast Composition: The breasts are almost entirely fatty. There are no dominant masses or suspicious calcifications. Once again, a loop recorder device is seen in the inferior medial portion of the left breast. No other significant abnormalities are identified. There has been no significant change since the prior study. BI/SCREEN MAMM (CAD) W/YOSSI BILAT IMPRESSION: Stable bilateral screening mammogram. Yearly follow-up mammogram recommended. (A) ASSESSMENT CATEGORY: BIRADS Category 1: Negative. A letter regarding these results will be sent to the patient by the facility within 30 days. Approximately 10% of breast cancers are not detected by mammography. A normal mammogram should not delay biopsy of a clinically suspicious abnormality. [id number] Electronically Signed: Jamal Gonzalez, at 13:56 EDT , Service support ,
--- NOTE | 2019-02-27 12:03 | US_ITS ---
STUDY: THYROID ULTRASOUND REASON FOR EXAM: Female, 73 years old. Graves' disease, thyroid nodules TECHNIQUE: Ultrasound evaluation of the thyroid was performed with real-time and static oglesby-scale imaging. COMPARISON: 02/26/2018 FINDINGS: RIGHT LOBE: The right lobe of the thyroid gland measures 5.0 x 1.6 x 1.6 cm. There is a heterogeneous echotexture. There are multiple nodules of the right thyroid lobe with a nodules measuring less than 9 mm, not substantially changed since the prior study. No new or enlarging thyroid nodule. None of the nodules demonstrate suspicious sonographic features. LEFT LOBE: The left lobe of the thyroid gland measures 5.1 x 1.7 x 1.8 cm. There is a heterogeneous echotexture. There are multiple nodules of the left thyroid lobe with the largest measuring up to 8 mm (lower pole) not substantially changed since the prior study. No new or enlarging thyroid nodule. ISTHMUS: The isthmus measures 3.0 mm. The regional lymph nodes are normal. US/Thyroid IMPRESSION: 1. Stable bilateral thyroid nodules (subcentimeter) without suspicious sonographic features. No new or enlarging thyroid nodule. Electronically Signed: Brayden Doherty MD ([place]) at 17:03 EDT , Service support ,
== END ==
PROVIDERS: Family Provider Family Medicine; PCP Family Medicine; Referring Provider Family Medicine; Visit Provider Family Medicine
DX: Z12.31 Encounter for screening mammogram for malignant neoplasm of breast (principal); E04.2 Nontoxic multinodular goiter
CPT/HCPCS: 76536; 77063; 77067

== ENCOUNTER → 2019-06-08 14:45 | Outpatient (CLI) | payer MEDICARE, OTHER, SELFPAY ==
[2019-02-11 09:26] VITALS: BMI 38.7
--- NOTE | 2019-06-08 15:22 | RAD_ITS ---
STUDY: X-RAY - PELVIS AND LEFT HIP REASON FOR EXAM: Female, 74 years old. Left hip pain, no injury TECHNIQUE: 3 views of the pelvis and hip. COMPARISON: None. FINDINGS: There is a non-specific bowel gas pattern. Normal visualized soft tissue structures. Normal bilateral iliac wings, sacroiliac joints and visualized sacrum. Normal bilateral superior and inferior pubic rami. Normal pubic symphysis. Normal bilateral ischial tuberosities. There are mildly distended loops of small bowel. The visualized right hip arthroplasty with heterotopic bone formation in the medial soft tissues. There is moderate degenerative change of the left hip joint with minimal acetabular spurring. RAD/HIP, UNI W/ Pelvis 2-3 Views IMPRESSION: Degenerative changes left hip joint. Right hip arthroplasty. Nonspecific mildly distended small bowel loops. Recommend correlation with abdominal symptoms. Electronically Signed: Sandrita Hernandez MD at 15:39 EST Tel , Service support ,
--- NOTE | 2019-06-08 15:25 | RAD_ITS ---
STUDY: X-RAY - LUMBAR SPINE REASON FOR EXAM: Female, 74 years old. Low back pain TECHNIQUE: 2 view(s) of the lumbar spine were obtained. COMPARISON: 09/10/2018 FINDINGS: Normal lumbar lordosis. There is no substantial scoliosis. There is a normal alignment of the vertebrae. There is multilevel spondylosis. There is robust L2-L3 and L5-S1 anterior osteophyte formation. There is disc space narrowing L5-S1 with facet arthropathy L4-L5 L5-S1. There is a right hip arthroplasty. RAD/Lumbar Spine 2 or 3 Views IMPRESSION: Degenerative change. No visualized acute fracture. Right hip arthroplasty. Electronically Signed: Sandrita Hernandez MD at 15:52 EST Tel , Service support ,
== END ==
PROVIDERS: Family Provider Family Medicine; PCP Family Medicine; Referring Provider Anesthesiology Pain Medicine; Visit Provider Anesthesiology Pain Medicine
DX: M54.9 Dorsalgia, unspecified (principal); M25.552 Pain in left hip
CPT/HCPCS: 72100; 73502

== ENCOUNTER → 2020-03-03 | Outpatient (CLI) | payer MEDICARE, OTHER, SELFPAY ==
[2019-02-11 09:26] VITALS: BMI 38.7
--- NOTE | 2020-03-03 14:08 | MRI_ITS ---
STUDY: MRI LUMBAR SPINE WITHOUT CONTRAST REASON FOR EXAM: Female, 74 years old. back pain, right leg pain worse than left TECHNIQUE: Standardized fat and water weighted pulse sequences were obtained in the sagittal and axial planes. COMPARISON: 01/04/2011 FINDINGS: T12-L1: Normal endplates. Normal disc height, hydration and morphology. Normal bilateral facet joints. Normal central canal and bilateral lateral recesses. Normal bilateral intervertebral neural foramina. Normal lumbar lordosis. There is no substantial scoliosis. Normal conus medullaris that terminates at the L1/L2. L1-2: Moderate bilateral facet hypertrophy and ligament flavum hypertrophy. No disc protrusion, spinal stenosis, or neural foraminal stenosis. L2-3: Moderate bilateral facet hypertrophy and ligament flavum hypertrophy. No change in the mild bilobed disc protrusion which produces a no central spinal stenosis but mild bilateral neural foraminal stenosis. L3-4: Severe bilateral facet hypertrophy and ligament flavum hypertrophy. Enlarging broad disc protrusion asymmetric to the left which is now moderate in size which produces moderate spinal stenosis with severe left lateral recess stenosis with effacement of the left L4 nerve root and mild bilateral neural foraminal stenosis. L4-5: Moderate bilateral facet hypertrophy and ligament flavum hypertrophy. No change in the mild broad disc protrusion which produces mild spinal stenosis and mild bilateral neural foraminal stenosis. L5-S1: Normal endplates. Normal disc height, hydration and morphology. Normal bilateral facet joints. Normal central canal and bilateral lateral recesses. Normal bilateral intervertebral neural foramina. Normal visualized sacral ala. Normal visualized paraspinous soft tissue structures. MRI/Spine Lumbar (Routine) IMPRESSION: Worsening degenerative disc disease at L3/L4 as described above. Electronically Signed: Valdemar Huerta MD at 16:00 EDT Tel , Service support ,
== END | disposition home or self-care (01) ==
LOC: MRI 14:07
PROVIDERS: PCP Family Medicine; Referring Provider Anesthesiology Pain Medicine; Visit Provider Anesthesiology Pain Medicine
DX: M54.9 Dorsalgia, unspecified (principal); M79.606 Pain in leg, unspecified
CPT/HCPCS: 72148

== ENCOUNTER → 2021-03-17 13:53 | Outpatient (CLI) | payer MEDICARE, OTHER, SELFPAY ==
--- NOTE | 2021-03-17 13:58 | VDLE_ITS ---
Reason For Study: BLE Edema RIGHT LEFT CFV is compressible, spontaneous, phasic, CFV is compressible, spontaneous, phasic, competent and demonstrates normal competent, and demonstrates normal augmentation. augmentation. FV is compressible, spontaneous, phasic, FV is compressible, spontaneous, phasic, competent and demonstrates normal competent and demonstrates normal augmentation. augmentation. POP V is compressible, spontaneous, phasic, POP V is compressible, spontaneous, phasic, competent and demonstrates normal competent and demonstrates normal augmentation. augmentation. T/P Trunk is compressible. T/P Trunk is compressible. PTV is compressible. PTV is compressible. RT PerV is compressible. LT PerV is compressible. SFJ is INCOMPETENT and measures 0.60cm x 0.63 SFJ is competent and measures 0.70cm x 0.69 cm. cm. GSV proximal thigh measures 0.63cm x 0.72 cm. GSV proximal thigh measures 0.40cm x 0.40 cm. GSV at knee measures 0.55cm x 0.61 cm. GSV at knee measures 0.30cm x 0.32 cm. GSV INCOMPETENT throughout for greater than GSV above knee is competent. 0.5 seconds. GSV below knee is INCOMPETENT for greater SSV proximal calf is INCOMPETENT for greater than 0.5 seconds. than 0.5 seconds and measures 0.31cm x 0.33 SSV proximal calf is INCOMPETENT for greater cm. than 0.5 seconds and measures 0.34cm x 0.38 Procedure cm. This is a venous duplex using B-mode, color flow and spectral Doppler. Exam performed in department. A preliminary report was called and/or faxed to Dr. Begum. VL/Venous Duplex US - Eugenio Extrem Interpretation Summary Deep veins of the lower extremities are bilaterally patent and compressible seg mentally. There is no evidence of deep vein thrombosis on either side. Valvular competence appears in tact within the proximal deep venous systems bilaterally. The great saphenous veins appear bila terally patent and compressible segmentally. The right sapheno-femoral junction is incompetent . T he left sapheno- femoral junction is competent . The right great saphenous vein appears segmenta lly incompetent. The left great saphenous vein appears competent above the knee. The left great saph enous vein appears incompetent below the knee. Small saphenous veins are patent and incompetent bi laterally. Ordering Physician: Shoaib Begum Referring Physician: Shoaib Begum Performed By: Linda Soto, BHARATHI, RVT
== END ==
PROVIDERS: PCP Family Medicine; Referring Provider Family Medicine; Visit Provider Family Medicine
DX: I87.2 Venous insufficiency (chronic) (peripheral) (principal); R60.0 Localized edema
CPT/HCPCS: 93970

== ENCOUNTER → 2021-03-20 11:20 | Outpatient (CLI) | payer MEDICARE, OTHER, SELFPAY ==
--- NOTE | 2021-03-20 11:23 | RAD_ITS ---
INDICATION: BACK PAIN EXAMINATION/TECHNIQUE: X-RAY - XR Spine Lumbar 2 or 3 Views COMPARISON: 03/03/2020. FINDINGS: Extensive degenerative changes of the lumbar vertebral bodies with straightening of the thoracolumbar junction and mild levoscoliosis of the lumbar spine visualized, extensive degenerative endplate changes with anterior osteophyte formation, bridging osteophytes visualized at L2-L3. Decreased intervertebral disc height visualized at multiple levels but most prominent at L1-L2 and L5-S1. No evidence of compression deformity of the lumbar vertebral bodies. Extensive degenerative changes visualized in the posterior column most prominent at L5 and L4. Degenerative changes in the sacroiliac joints more prominent on the left. Right hip prosthesis is unremarkable, degenerative changes of the left hip joint with joint space narrowing seen. RAD/Lumbar Spine 2 or 3 Views IMPRESSION: Degenerative changes of the lumbar spine, no acute osseous abnormality seen. Electronically Signed: Emiliano Hernandez MD at 15:33 EDT Tel , Service support ,
== END ==
PROVIDERS: PCP Family Medicine; Referring Provider Anesthesiology Pain Medicine; Visit Provider Anesthesiology Pain Medicine
DX: M54.9 Dorsalgia, unspecified (principal)
CPT/HCPCS: 72100

== ENCOUNTER 2021-06-27 12:04 | Emergency (ER) | payer MEDICARE, OTHER, SELFPAY ==
[2021-06-27 12:04] VITALS: BP 136/54; PULSE 73; RESP 16; TEMP 35.9; O2SAT 98; BMI 39.4
--- NOTE | 2021-06-27 13:09 | ED.VIS.FALL ---
HPI HPI - Fall History of Present Illness Chief Complaint: Fall Narrative Narrative: Patient did get anesthesia for a lumbar injection, afterwards she felt slightly lightheaded and dizzy, she sustained a mechanical fall, she fell on her buttock but now is able to ambulate and only has buttock pain. No head injury, no back injury. She now feels back to baseline and does not feel lightheaded or dizzy. No chest pain or shortness of breath no palpitations no other symptoms. PFSH PFSH Medical History bilateral cataract surgery Essential (primary) hypertension Hypothyroidism Ileus Obesity (BMI 30-39.9) Osteoarthritis Palpitations Sinus arrhythmia Home Medications aspirin 325 mg PO BIDCM tab 07/29/17 [Rx Last Taken Unknown] hydrochlorothiazide 25 mg PO DAILY #30 tab 07/29/17 [Rx Last Taken Unknown] losartan 100 mg PO DAILY #30 tab 07/29/17 [Rx Last Taken Unknown] meloxicam 7.5 mg tablet 7.5 mg PO DAILY tab 03/22/20 [History Last Taken Unknown] metoprolol succinate 100 mg tablet,extended release 24 hr ea PO 03/22/20 [History Last Taken Unknown] Allergy/AdvReac Type Severity Reaction Status Date / Time adhesive AdvReac Other Verified 06/27/21 12:07 levofloxacin [From Levaquin] AdvReac Other Verified 06/27/21 12:07 lisinopril AdvReac COUGHING Verified 06/27/21 12:07 Family History Father Hypertension Mother Hypertension Diabetes Grandfather Colon cancer Grandfather Stomach cancer Grandmother Myocardial infarction Grandmother No problems noted. Surgical History History of appendectomy History of bilateral knee replacement History of hip replacement History of hysterectomy History of loop recorder (08/31/15) History of shoulder surgery History of tonsillectomy Hx of cholecystectomy Social History household members: spouse housing: house Smoking Status: Never smoker alcohol intake: current alcohol intake frequency: holidays/special occasions only substance use type: does not use what type of physical activity do you participate in: bicycling frequency: daily do you feel safe at home: Yes ROS ROS ED ROS Narrative Social: Noncontributory Medications: Reviewed Past medical history: Reviewed Review of systems General: Patient has no head injury or loss of consciousness. Lightheadedness and dizziness as in HPI HEENT: No facial injury Neck: No neck pain Cardiovascular: Patient denies any chest pain or palpitations Chest wall: No chest wall contusions Respiratory: There is no shortness of breath GI: There is no nausea vomiting diarrhea or abdominal pain, no abdominal wall contusions Skin: No lacerations or abrasions Neurological: Patient has no memory loss, confusion, or any focal weakness Psychiatric: No recent behavioral changes Back: Back pain is same as normal. Musculoskeletal: Buttock pain but able to ambulate All other systems are reviewed and normal EXAM Physical Exam Narrative Exam Narrative: Physical exam Vitals reviewed General: Does not appear in significant distress, no obvious injuries HEENT: No facial injury Head: No head injury Eyes: Extraocular movements intact Neck: No C-spine tenderness with full range of motion Heart: Regular rate normal pulses Chest wall: No chest wall pain Lungs clear lungs bilaterally with normal inspiration and expiration without tachypnea GI: Abdomen is soft and nontender there is no mass no guarding no abdominal wall contusion : Stable pelvis Musculoskeletal: Moves all extremities without any signs of trauma. Some slight soft tissue buttock pain. No hip tenderness, full range of motion. No SI joint pain Back: Lower back shows an injection site. It is clean dry and intact. Skin: No abrasions or laceration Neurological: Patient is alert and oriented with no focal deficits Const Vital Signs: 06/27/21 12:04 Temperature 96.7 F L Temperature Source Temporal Pulse Rate 73 Respiratory Rate 16 Blood Pressure 136/54 H Blood Pressure Mean 81 Pulse Ox 98 Oxygen Delivery Method Room Air MDM MDM MDM Narrative Medical decision making narrative: Patient has a normal exam her injuries are all soft tissue, she does not need any imaging. As far as her dizziness this is a reaction to the sedation she received, she improved and now she is asymptomatic I do not believe she needs a work-up I will discharge her in stable condition with reassurance. Discharge Plan Triage Chief Complaint: Fall ED Provider: Vishal Ortega Dx/Rx/DC Orders Clinical Impression: Fall, Dizziness Instructions: Preventing Falls How to ... Prescriptions: No Action meloxicam 7.5 mg tablet 7.5 mg PO DAILY RF: 0 metoprolol succinate 100 mg tablet extended release 24 hr PO RF: 0 aspirin 325 MG tablet 325 mg PO BIDCM RF: 0 hydrochlorothiazide 25 MG tablet 25 mg PO DAILY Qty: 30 RF: 0 losartan 100 MG tablet 100 mg PO DAILY Qty: 30 RF: 0 Primary Care Provider: Shoaib Begum Referrals: Shoaib Begum DO [Primary Care Provider] - 3-5 Days Disposition Disposition: Home, Self Care
[2021-06-27 13:30] VITALS: BP 130/76; PULSE 71; RESP 14; O2SAT 94
== END 2021-06-27 13:30 | disposition home or self-care (01) ==
PROVIDERS: Emergency Provider Emergency Medicine; PCP Family Medicine; Visit Provider Emergency Medicine
DX: Z04.3 Encounter for examination and observation following other accident (principal); R42 Dizziness and giddiness; T42.75XA Adverse effect of unspecified antiepileptic and sedative-hypnotic drugs, initial encounter; I10 Essential (primary) hypertension; E03.9 Hypothyroidism, unspecified; M19.90 Unspecified osteoarthritis, unspecified site; Z79.82 Long term (current) use of aspirin; Z79.899 Other long term (current) drug therapy
CPT/HCPCS: 99282

== ENCOUNTER 2021-06-30 13:07 | Outpatient (CLI) | payer MEDICARE, OTHER, SELFPAY ==
[2021-06-30 13:49] LABS: Erythrocyte Sedimentation Rate 13 mm/hr (0-30)
[2021-06-30 13:51] LABS: Absolute Lymphocyte Count 2.03 X10^3/uL (0.83-4.51); Absolute Neutrophil Count 6.9 X10^3/uL (2.0-7.7); Basophil# 0.02 X10^3/uL; Basophil% 0.2 % (0-1); Eosinophil# 0.02 X10^3/uL; Eosinophils% 0.2 % (0-5); Hematocrit 44.6 % (37-47); Hemoglobin 14.6 g/dL (12.0-15.0); Lymphocyte # 2.03 X10^3/ul (0.83-4.51); Lymphocyte % 21.2 % (19-41); Mean Corp Hgb Conc 32.7 g/dL (32-36); Mean Corpuscular Hgb 31.3 pg (27.0-32.0); Mean Corpuscular Volume 95.5 fL (81-99); Mean Platelet Vol. 9.5 fl (6.2-12.0); Monocyte# 0.58 X10^3/uL; NRBC Flagged by Analyzer 0 % (0-5); Neutrophil # 6.89 X10^3/uL (2.7-7.7); Neutrophil % 71.9 % (47-70); Platelet Count 269 K/mm3 (150-450); RBC Distribution Width CV 13.3 % (11.6-14.6); RBC Distribution Width SD 47.4 fl (35.1-43.9); Red Blood Count 4.67 M/mm3 (4.2-5.4); White Blood Count 9.6 K/mm3 (4.4-11.0)
== END 2021-06-30 23:59 | disposition short-term general hospital (02) ==
LOC: LAB 13:11
PROVIDERS: PCP Family Medicine; Referring Provider Orthopaedic Surgery; Visit Provider Orthopaedic Surgery
DX: Z96.641 Presence of right artificial hip joint (principal)
CPT/HCPCS: 36415; 85025; 85652; 86140

== ENCOUNTER → 2022-08-06 | Outpatient (CLI) | payer MEDICARE, SELFPAY ==
--- NOTE | 2022-08-06 10:56 | ECHOCS_ITS ---
Reason For Study: ARRYTHMIA Procedure This was a 2D Doppler, Color Flow transthoracic echocardiogram. The study was technically difficult. Contrast injection was performed. Exam performed in department. Left Ventricle Normal LV size. Left ventricular systolic function is normal. The estimated ejection fraction is 65 %. Stage 2 diastolic dysfunction. No regional wall motion abnormalities noted. Right Ventricle Normal RV size. Normal systolic function. Atria Normal left atrium. Normal right atrium. Mitral Valve Normal mitral valve. Tricuspid Valve Normal tricuspid valve. Mild (1+) tricuspid valve insufficiency. Pulmonary artery systolic pressure is 34 mmHg. Aortic Valve Trisinus/trileaflet aortic valve. Pulmonic Valve Normal pulmonic valve. Great Vessels Normal aortic root. The pulmonary artery is normal size. Normal inferior vena cava. Pericardium/Pleural No pericardial effusion. Medication 22 gauge I.V. with prn adaptor inserted into right arm. Diluted definity 2ml given slow IV push to enhance endocardial definition. MMode/2D Measurements & Calculations LVIDd: 4.7 cm IVSd: 0.84 cm Ao root diam: 2.7 cm LVIDs: 2.9 cm LVPWd: 1.0 cm FS: 38.3 % LAV(MOD-sp4): 48.8 ml LVAd ap4: 28.3 cm2 SV(MOD-sp4): 61.9 ml LVLd ap4: 7.5 cm EDV(MOD-sp4): 89.7 ml EDV(sp4-el): 91.0 ml LVAs ap4: 14.5 cm2 LVLs ap4: 6.4 cm ESV(MOD-sp4): 27.8 ml ESV(sp4-el): 28.2 ml EF(MOD-sp4): 69.0 % EF(sp4-el): 69.0 % SV(sp4-el): 62.7 ml LA A4 area: 17.8 cm2 LA dimension(2D): 3.3 cm RA A4 area: 11.3 cm2 Time Measurements MV dec time: 0.13 sec Doppler Measurements & Calculations MV E max burke: 82.8 cm/sec Lat Peak E' Burke: 12.1 cm/sec Med Peak E' Burke: 7.9 cm/sec MV A max burke: 75.6 cm/sec E/E' lat: 6.8 E/E' med: 10.5 MV E/A: 1.1 MV V2 max: 113.3 cm/sec MV dec slope: 727.3 cm/sec2 Ao V2 max: 129.5 cm/sec MV max P.1 mmHg Ao max P.7 mmHg MV V2 mean: 75.7 cm/sec Ao V2 mean: 88.5 cm/sec MV mean P.5 mmHg Ao mean P.6 mmHg MV V2 VTI: 34.9 cm Ao V2 VTI: 29.3 cm AV (velocity ratio): 0.85 LV V1 max: 127.1 cm/sec MR max burke: 447.6 cm/sec TR max burke: 269.7 cm/sec LV V1 max P.5 mmHg MR max P.1 mmHg TR max P.1 mmHg LV V1 mean P.0 mmHg LV V1 mean: 79.8 cm/sec LV V1 VTI: 24.9 cm ECHO/Echo Complete W/ Contrast Interpretation Summary Normal LV size. Left ventricular systolic function is normal. The estimated ejection fraction is 65 %. Stage 2 diastolic dysfunction. Contrast injection was performed. Ordering Physician: Koko Wheat Referring Physician: Daina Live M.D. Performed By: Matilda Sidhu RCS
== END | disposition home or self-care (01) ==
PROVIDERS: PCP Internal Medicine; Visit Provider Internal Medicine Cardiovascular Disease
DX: R00.2 Palpitations (principal); Z98.890 Other specified postprocedural states
CPT/HCPCS: 93225; 93226; 93306; Q9957; A4216; C8929